=== PATIENT | female | born 1995 | race Caucasian/White ===

== ENCOUNTER 2022-09-08 16:45 | Emergency (ER) | payer MEDICAID, SELFPAY ==
[2022-09-08 17:03] VITALS: BP 108/88; PULSE 94; RESP 16; TEMP 36.4; O2SAT 98; BMI 26.5
--- NOTE | 2022-09-08 17:21 | ED_ITS ---
HPI - Nausea/Vomiting/Diarrhea General Chief complaint: Nausea/Vomiting Stated complaint: Vomiting Time Seen by Provider: 09/08/22 16:46 History of Present Illness HPI Narrative: [age] year old young woman sent to the emergency department from urgent care for IV fluids and electrolyte analysis. She has been vomiting now almost 24 hours. Uncertain exposure. Is vaccinated but due for latest booster with COVID; has not received her influenza vaccine. She has not had a fever but did feel chilled yesterday. Emesis. No actual pain I note she does have a history of take Suboxone. She did manage yesterday's dose but is not yet managed today; it is now 5:20 p.m.. She would anticipate more withdrawals within a couple hours. No rashes. Corpus with vomiting since 8:00 a.m.. Feels a little lightheaded at times when goes to stand. Does have experience with Zofran ODT when and notes that actually causes nausea now just given the smell. Further alarming apparently to Urgent Care was decreased urine output. She does not have dysuria. Related Data Home Medications Medication Instructions Recorded Confirmed buprenorphine 8 mg-naloxone 2 mg 1 film sublingual BID 09/08/22 09/08/22 sublingual film (Suboxone) gabapentin 300 mg capsule 300 mg PO QDAY 09/08/22 09/08/22 propranolol 10 mg tablet 10 mg PO 09/08/22 09/08/22 venlafaxine 150 mg cap PO 09/08/22 09/08/22 capsule,extended release 24 hr Allergies Allergy/AdvReac Type Severity Reaction Status Date / Time bupropion [From Wellbutrin] Allergy Intermediate Hives Verified 09/08/22 17:08 morphine Allergy Intermediate Abdominal Verified 09/08/22 17:08 Pain Review of Systems Status of ROS: Reports: 6 or more systems reviewed and unremarkable except as noted in History and below PFSH PFSH Social History Smoking Status: Current every day smoker Do you use any of these nicotine containing products: Vaping Products Second hand tobacco smoke exposure: No How often do you have a drink containing alcohol: never AUDIT-C Alcohol total score: 0 Non-prescribed substance use: former substance user Non-prescribed substance use details: Former IV drug user, currently taking suboxone Exam Narrative: Exam Narrative: Pleasant. Looks uncomfortable. Calm. Large pala-type ear plugs. Oropharynx is a little sticky. Cranial nerves 2-12 are intact. Pupils there are 4 mm and reactive to light and accommodation, brisk. There is some scleral icterus. Mild rhinorrhea. Skin is warm dry without rash. Extremities without edema. Moving all extremities out difficulty. Breathing easily lungs are clear. Cardiovascular with elevated rate. Regular rhythm no murmur rub or gallop identified. Abdomen is soft and nontender. No peritoneal signs. Const: Vital Signs, click to edit/add: Vital Signs - 24 hr 09/08/22 17:03 09/08/22 17:32 Temperature 97.6 F Pulse Rate 83 Pulse Rate [Left P ulse Oximeter] 94 Respiratory Rate 16 Blood Pressure [Ri ght Upper Arm] 108/88 Pulse Oximetry 98 97 Oxygen Delivery Me thod Room Air Documenting provider has reviewed patient's vital signs: yes Course Course Hospital Course: I offered antiemetic trial as she has been tolerating some ice chips. Understandably she would like to proceed with IV fluids therefore will collect electrolytes as well. Reevaluation(s) Reevaluation #1: Overall markedly improved with fluids. Electrolytes are normal. She does believe she can urinate and so will be leaving a urine sample for urine tox scre en if needed. Anticipating departure shortly Time: 18:19 Vital Signs Vital signs: Initial Vital Signs Temperature 97.6 F 09/08/22 17:03 Temperature Source Temporal Artery Scan 09/08/22 17:03 Pulse Rate 94 09/08/22 17:03 Pulse Rhythm 09/08/22 17:03 Pulse Strength 3+ Normal 09/08/22 17:03 Respiratory Rate 16 09/08/22 17:03 Blood Pressure 108/88 09/08/22 17:03 Blood Pressure Mean 94 09/08/22 17:03 Blood Pressure Position Supine 09/08/22 17:03 Pulse Oximetry 98 09/08/22 17:03 Oxygen Delivery Method 09/08/22 17:03 Vital Signs Temperature 97.6 F 09/08/22 17:03 Pulse Rate 94 09/08/22 17:03 Respiratory Rate 16 09/08/22 17:03 Blood Pressure 108/88 09/08/22 17:03 Pulse Oximetry 98 09/08/22 17:03 Oxygen Delivery Method 09/08/22 17:03 Temperature 97.6 F 09/08/22 17:03 Pulse Rate 80 09/08/22 18:02 Respiratory Rate 16 09/08/22 17:03 Blood Pressure 101/71 09/08/22 18:01 Pulse Oximetry 100 09/08/22 18:02 Oxygen Delivery Method 09/08/22 17:03 MDM - Nausea/Vomiting/Diarrhea MDM Narrative Medical decision making narrative: May need to provide with Suboxone during time here. Medical Records Attestation: I reviewed the patient's medical records. Lab Data Attestation: I reviewed the patient's lab results. Labs: Lab Results 09/08/22 09/08/22 09/08/22 Range/Units 17:25 17:25 17:27 Sodium 139 (135-149) mmol/L Potassium 4.3 (3.6-5.1) mmol/L Chloride 100 (96-114) mmol/L Carbon Dioxide 32 (20-32) mmol/L BUN 19 (5-24) mg/dL Creatinine 0.8 (0.5-1.5) mg/dL Estimated Creat Clear 81.82 Estimated GFR 105 ml/min Glucose 92 (60-115) mg/dL Calcium 9.5 (8.4-10.6) mg/dL Urine Opiates Screen Negative (Negative) Ur Oxycodone Screen Negative (Negative) Urine Methadone Screen Negative (Negative) Ur Propoxyphene Screen Negative (Negative) Ur Barbiturates Screen Negative (Negative) U Tricyclic Antidepress Negative (Negative) Ur Phencyclidine Scrn Negative (Negative) Ur Amphetamines Screen Negative (Negative) U Methamphetamines Scrn Negative (Negative) U Benzodiazepines Scrn Negative (Negative) Urine Cocaine Screen Negative (Negative) U Marijuana (THC) Screen Negative (Negative) Ur Drug Screen Comment See Note SARS-CoV-2 (PCR) Negative SARS-CoV-2 (Negative) Influenza Type A (PCR) Negative PCR FLU A (Negative) Influenza Type B (PCR) Negative PCR FLU B (Negative) Discharge Plan Discharge Clinical Impression: Vomiting, Dehydration Patient Disposition: Home, Self-Care Condition: Improved Additional Instructions: Continue to focus on hydration. Slow advance of diet over the next 36 hours. Diluted juices and soup broths to thicker soups and smoothies. Rice. [place]. If the Zofran is not palatable to you, you can call and we can send in a different prescription for you Return for intractable vomiting, increasing abdominal pain, associated fever. In addition to COVID and influenza being negative, your chemistries were normal. Prescriptions: No Action gabapentin 300 mg capsule 300 mg PO QDAY venlafaxine 150 mg capsule,extended release 24hr PO buprenorphine-naloxone [Suboxone] 8-2 mg film 1 film sublingual BID Label Comments: PLACE 1 FILM UNDER THE TONGUE TWICE DAILY propranolol 10 mg tablet 10 mg PO Follow Up/Referrals: Chirag Mckenna MD [Primary Care Provider] - Stand Alone Forms: [employer] Info Instructions
[2022-09-08 17:32] VITALS: PULSE 83; O2SAT 97
[2022-09-08] MEDS: 0.9 % SODIUM CHLORIDE 1000 ml 1,000 ML IV (17:33)
[2022-09-08] MEDS: ONDANSETRON 2 MG/ML inj 4 MG IVP (17:33)
[2022-09-08 17:42] LABS: Chloride* 100 mmol/L (96-114); Potassium* 4.3 mmol/L (3.6-5.1); Sodium* 139 mmol/L (135-149)
[2022-09-08 17:45] VITALS: PULSE 81; O2SAT 100
[2022-09-08 17:45] LABS: Blood Urea Nitrogen* 19 mg/dL (5-24); Calcium* 9.5 mg/dL (8.4-10.6); Carbon Dioxide* 32 mmol/L (20-32); Creatinine* 0.8 mg/dL (0.5-1.5); Est. Creatinine Clearance* 81.82; Estimated Glomerular Filt Rate 105 ml/min; Glucose* 92 mg/dL (60-115)
[2022-09-08 18:00] VITALS: PULSE 81; O2SAT 100
[2022-09-08 18:01] VITALS: BP 101/71; PULSE 79; O2SAT 100
[2022-09-08 18:02] VITALS: PULSE 80; O2SAT 100
[2022-09-08 18:20] LABS: PCR FLU A Negative PCR FLU A (Negative); PCR FLU B Negative PCR FLU B (Negative)
[2022-09-08 18:21] LABS: SARS PCR* Negative SARS-CoV-2 (Negative)
[2022-09-08 18:36] LABS: Amphetamine Screen Urine Negative (Negative); Barbiturate Screen Urine Negative (Negative); Benzodiazepines Screen Urine Negative (Negative); Cannabinoid Screen Urine Negative (Negative); Cocaine Screen Urine Negative (Negative); Methadone Screen Urine Negative (Negative); Methamphetamines Screen Urine Negative (Negative); Opiate Screen Urine Negative (Negative); Oxycodone Screen Urine Negative (Negative); Phencyclidine Screen Urine Negative (Negative); Tricyclic Antidepressant Urine Negative (Negative)
== END 2022-09-08 18:28 | disposition home or self-care (01) ==
PROVIDERS: Emergency Provider Family Medicine; PCP Family Medicine
DX: R11.10 Vomiting, unspecified (principal); E86.0 Dehydration
CPT/HCPCS: 36415; 80048; 80306; 87631; 96361; 96374; 99284; J2405; J7030

== ENCOUNTER 2022-12-07 01:46 | Outpatient (CLI) | payer MEDICAID, SELFPAY | END 2022-12-07 01:47 | disposition home or self-care (01) | PROVIDERS: PCP Family Medicine; Visit Provider Family Medicine | DX: T50.904A Poisoning by unspecified drugs, medicaments and biological substances, undetermined, initial encounter (principal); R40.4 Transient alteration of awareness; Y92.009 Unspecified place in unspecified non-institutional (private) residence as the place of occurrence of the external cause | CPT/HCPCS: A0425; A0427 ==

== ENCOUNTER 2022-12-07 02:19 | Inpatient (IN) | payer MEDICAID, SELFPAY ==
[2022-12-07] VITALS (86 sets, daily range): BP systolic 96–134; BP diastolic 63–105; PULSE 98–137; RESP 11–37; TEMP 36.7–37.8; O2SAT 88–100; BMI 26.6; BMI 23.4
--- NOTE | 2022-12-07 02:00 | XR_ITS ---
Patient: SANKET GARCIA Facility:?[facility] Patient ID:?[id number] Site Patient ID:?[id number] Site :?1995 Study:?XRay-Chest ap portable-12/07/2022 3:10:50 AM Ordering Physician:XAVIER Final Report: INDICATION: Aspiration TECHNIQUE: Chest radiograph 1 view COMPARISON: 10/12/2013 FINDINGS: Mediastinum: The mediastinum is normal in appearance. The heart silhouette is normal in size and morphology. Lung: Small lung volumes are present with an indistinct appearance of the perihilar vessels. No sign of pleural effusion seen. No pneumothorax is identified. Bone and Soft tissue: Unremarkable for age. IMPRESSION: 1. Small lung volumes are present with an indistinct appearance of the perihilar vessels. Findings can be due to perihilar atelectasis, edema, or aspiration pneumonitis. Dictated by Alfred Webb MD @ 12/07/2022 3:25:40 AM Dictated by: Alfred Webb MD @ 12/07/2022 03:25:47 Signed by:?Alfred Webb MD @12/07/2022 3:25:47 AM (Electronic Signature)
[2022-12-07] MEDS: 0.9 % SODIUM CHLORIDE 1000 ml 1,000 ML IV ×2 (02:20→14:43)
[2022-12-07] MEDS: ONDANSETRON 2 MG/ML inj 4 MG IVP (02:40)
[2022-12-07 04:08] LABS: Amphetamine Screen Urine POSITIVE (Negative); Methamphetamines Screen Urine POSITIVE (Negative)
[2022-12-07 04:09] LABS: Benzodiazepines Screen Urine Negative (Negative); Cannabinoid Screen Urine Negative (Negative); Cocaine Screen Urine Negative (Negative); Methadone Screen Urine Negative (Negative); Opiate Screen Urine Negative (Negative); Phencyclidine Screen Urine Negative (Negative); Tricyclic Antidepressant Urine Negative (Negative)
[2022-12-07 04:10] LABS: Barbiturate Screen Urine Negative (Negative); Color Urine Yellow (Yellow); Oxycodone Screen Urine Negative (Negative); Ur HCG Qualitative* Negative (Negative)
[2022-12-07 04:11] LABS: Appearance Urine Cloudy (Clear); Bilirubin Urine Negative (Negative); Blood Urine 2+ (Negative); Glucose Urine Trace (Negative); Ketones Urine Negative (Negative); Protein Urine 2+ (Negative); Specific Gravity Urine >= 1.030 (1.000-1.030); pH Urine 5.5 (5.0-8.5)
[2022-12-07 04:12] LABS: Bacteria Urine Few; Leukocyte Esterase Urine Negative (Negative); Nitrite Urine Negative (Negative); RBC Urine 0-2 (0-2); Squamous Epithelial Cell Urine Moderate (None-Few); Urobilinogen Urine 0.2 (0.2-1.0)
[2022-12-07 04:13] LABS: Fine Granular Casts Urine Moderate; Hematocrit 36.4 % (33.0-51.0); Hemoglobin* 12.9 gm/dL (12.0-16.0); Mean Corpuscular HGB Conc 35 gm/dL (32-36); Mean Corpuscular Hemoglobin 31 pg (26-34); Mean Corpuscular Volume 88 fL (80-100); Neutrophils Percent Auto 51.5 % (42.0-72.0); Platelet Count* 197 K/uL (140-440); Red Blood Count 4.15 m/uL (4.00-5.20)
[2022-12-07 04:14] LABS: Basophils Percent Auto 0.2 % (0.0-3.0); Monocytes Percent Auto 4.3 % (0.0-11.0)
[2022-12-07 04:15] LABS: INR 1.02 (0.91-1.10); Partial Thromboplastin Time* 27 Seconds (23-33); Slide Review Reflex No
[2022-12-07 04:16] LABS: Alanine Aminotransferase* 22 U/L (4-35); Albumin* 3.7 g/dL (3.3-5.0); Alkaline Phosphatase* 53 U/L (40-150); Aspartate Amino Transferase* 30 U/L (12-35); Bilirubin Direct* 0.2 mg/dL (0.0-0.5); Bilirubin Total* 0.5 mg/dL (0.1-1.5); Troponin I* < 0.01 ng/mL (0.01-0.04)
[2022-12-07 04:17] LABS: Acetaminophen* < 10.0 ug/mL (10.0-30.0); Ethanol* < 0.01 % (0.01-0.03); Salicylate* < 1.0 mg/dL (1.0-10)
--- NOTE | 2022-12-07 04:19 | ED_ITS ---
HPI - Overdose General Chief Complaint: Overdose Stated Complaint: Overdose Time Seen by Provider: 12/07/22 03:47 Source: patient and EMS Mode of arrival: EMS Limitations: no limitations History of Present Illness HPI Narrative: Patient is a 27-year-old female who presents here with an overdose of narcotics, she was staying at the hotel, a person she was with, called 911, as she was not breathing, CPR was administered cover the by the time EMS got there, they gave her some intranasal Narcan, and she came around, she is complaining of some chest discomfort from the CPR, admits to taking some perc 30s unknown amount, she smoked these, as a history of previous overdoses x3, previous treatment x2, and looking to get back in to treatment, as she relapsed a week and half ago she tells me. 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 CPS is involved with her child, who is taking care of by her father. She currently is nauseous, and vomiting. complaint: accidental overdose Timing confirmed by: other Intent: unknown How Overdose Was Discovered: family/friend present at time Context: Intentional Overdose: drug/ETOH problems Context: Accidental Overdose: wanted to get high Treatments Prior to Arrival: oxygen, narcan and IV fluids Related Data Home Medications Medication Instructions Recorded Confirmed buprenorphine 8 mg-naloxone 2 mg 1 film sublingual BID 09/08/22 09/08/22 sublingual film (Suboxone) gabapentin 300 mg capsule 300 mg PO QDAY 09/08/22 09/08/22 propranolol 10 mg tablet 10 mg PO 09/08/22 09/08/22 venlafaxine 150 mg cap PO 09/08/22 09/08/22 capsule,extended release 24 hr Allergies Allergy/AdvReac Type Severity Reaction Status Date / Time bupropion [From Wellbutrin] Allergy Intermediate Hives Verified 09/08/22 17:08 morphine Allergy Intermediate Abdominal Verified 09/08/22 17:08 Pain Review of Systems Status of ROS: Reports: 10 or more systems reviewed and unremarkable except as noted in History and below PFSH PFS Social History Smoking Status: Current every day smoker Do you use any of these nicotine containing products: Vaping Products Second hand tobacco smoke exposure: No How often do you have a drink containing alcohol: never AUDIT-C Alcohol total score: 0 Non-prescribed substance use: opiods/painkillers Non-prescribed substance use details: Update 12/07/22: pt relapsed, taking Perc 30s Former IV drug user, currently taking suboxone Exam Narrative: Exam Narrative: Patient is seen as our red Medical, and stabilization room 1, Handoff given to myself by EMS, Patient is speaking normally, no problem with slurring words, oriented x3. Head eyes ears nose and throat exam show equal pupils, no scleral icterus, extraocular muscles are normal, no facial droop, speech is normal, trachea normal and midline. Thyroid normal midline palpable not enlarged. Chest shows symmetrical rise bilaterally, normal auscultation with no wheezes, no increased work of breathing, no overt bruising or lesions seen, no tenderness is noted on auscultation. Heart sounds normal with no S3-S4 no murmurs clicks or gallops. Abdomen shows no obvious masses or hepatosplenomegaly, no organomegaly, bowel sounds are normal in all quadrants. No tenderness is noted also in all quadrants. Upper and lower extremities show normal power, normal range of motion, pulses are normal, sensations normal, fine motor movements are normal, pelvis is stable to rocking. Cervical spine shows normal range of motion, and palpably not tender. Thoracic spine shows normal range of motion, and palpably not tender, lumbar spine shows no tenderness to palpation percussion and is otherwise normal range of motion. Skin shows no rashes, petechiae or eccymosis. She is examined with my nurse is present. Const: Vital Signs, click to edit/add: Vital Signs - 24 hr 12/07/22 03:58 12/07/22 02:19 12/07/22 02:19 Temperature 98.0 F Pulse Rate Pulse Rate [Right Pulse Oximeter] 108 H Respiratory Rate 20 Blood Pressure Blood Pressure [Ri ght Upper Arm] 108/75 Pulse Oximetry 95 88 88 Oxygen Delivery Me thod Nasal Cannula Nasal Cannula Nasal Cannula Oxygen Flow Rate 2 2 12/07/22 02:19 12/07/22 04:27 12/07/22 04:30 Temperature Pulse Rate 109 H 106 H Pulse Rate [Right Pulse Oximeter] Respiratory Rate Blood Pressure Blood Pressure [Ri ght Upper Arm] Pulse Oximetry 99 95 94 Oxygen Delivery Me thod Nasal Cannula Oxygen Flow Rate 2 12/07/22 04:31 12/07/22 04:35 12/07/22 02:27 Temperature Pulse Rate 106 H 105 H Pulse Rate [Right Pulse Oximeter] 108 H Respiratory Rate 22 Blood Pressure 119/93 H Blood Pressure [Ri ght Upper Arm] Pulse Oximetry 97 98 99 Oxygen Delivery Me thod Room Air Oxygen Flow Rate 12/07/22 02:29 12/07/22 02:45 12/07/22 02:35 Temperature Pulse Rate Pulse Rate [Right Pulse Oximeter] 108 H 105 H 120 H Respiratory Rate 14 12 19 Blood Pressure Blood Pressure [Ri ght Upper Arm] 107/85 120/86 134/87 Pulse Oximetry 99 97 96 Oxygen Delivery Me thod Nasal Cannula Nasal Cannula Nasal Cannula Oxygen Flow Rate 2 2 2 12/07/22 02:40 12/07/22 03:00 12/07/22 03:05 Temperature Pulse Rate Pulse Rate [Right Pulse Oximeter] 107 H 102 H 101 H Respiratory Rate 11 L 12 14 Blood Pressure Blood Pressure [Ri ght Upper Arm] 128/92 H 123/89 115/83 Pulse Oximetry 96 93 97 Oxygen Delivery Me thod Nasal Cannula Nasal Cannula Nasal Cannula Oxygen Flow Rate 2 2 2 12/07/22 03:10 12/07/22 03:15 12/07/22 03:20 Temperature Pulse Rate Pulse Rate [Right Pulse Oximeter] 102 H 101 H 101 H Respiratory Rate 17 Blood Pressure Blood Pressure [Ri ght Upper Arm] 125/90 H 118/88 124/91 H Pulse Oximetry 96 96 95 Oxygen Delivery Me thod Nasal Cannula Nasal Cannula Nasal Cannula Oxygen Flow Rate 2 2 2 12/07/22 03:25 12/07/22 03:30 12/07/22 03:35 Temperature Pulse Rate Pulse Rate [Right Pulse Oximeter] 103 H 104 H 98 Respiratory Rate 17 11 L 11 L Blood Pressure Blood Pressure [Ri ght Upper Arm] 120/102 H 125/105 H 130/98 H Pulse Oximetry 91 89 97 Oxygen Delivery Me thod Nasal Cannula Nasal Cannula Nasal Cannula Oxygen Flow Rate 2 2 2 12/07/22 03:40 12/07/22 03:45 12/07/22 03:50 Temperature Pulse Rate Pulse Rate [Right Pulse Oximeter] 101 H 98 100 Respiratory Rate 16 11 L 18 Blood Pressure Blood Pressure [Ri ght Upper Arm] 120/96 H 129/94 H 116/92 H Pulse Oximetry 98 99 98 Oxygen Delivery Me thod Room Air Nasal Cannula Oxygen Flow Rate 2 2 12/07/22 03:55 12/07/22 04:00 12/07/22 04:05 Temperature Pulse Rate Pulse Rate [Right Pulse Oximeter] 102 H 98 100 Respiratory Rate 18 16 16 Blood Pressure Blood Pressure [Ri ght Upper Arm] 121/88 122/94 H 123/90 H Pulse Oximetry 95 97 95 Oxygen Delivery Me thod Nasal Cannula Nasal Cannula Nasal Cannula Oxygen Flow Rate 2 2 2 12/07/22 04:10 12/07/22 04:15 12/07/22 04:20 Temperature Pulse Rate Pulse Rate [Right Pulse Oximeter] 104 H 103 H 101 H Respiratory Rate 24 16 21 Blood Pressure Blood Pressure [Ri ght Upper Arm] 122/90 H 130/91 H 125/86 Pulse Oximetry 94 96 98 Oxygen Delivery Me thod Nasal Cannula Nasal Cannula Nasal Cannula Oxygen Flow Rate 2 2 2 12/07/22 04:25 12/07/22 05:01 12/07/22 05:31 Temperature Pulse Rate 103 H 112 H Pulse Rate [Right Pulse Oximeter] 101 H Respiratory Rate 18 18 Blood Pressure 127/93 H 110/86 Blood Pressure [Ri ght Upper Arm] Pulse Oximetry 97 99 99 Oxygen Delivery Me thod Nasal Cannula Oxygen Flow Rate 2 12/07/22 05:40 12/07/22 06:02 12/07/22 04:04 Temperature 98.2 F Pulse Rate 114 H 112 H Pulse Rate [Right Pulse Oximeter] Respiratory Rate 18 Blood Pressure 123/77 Blood Pressure [Ri ght Upper Arm] Pulse Oximetry 100 95 90 Oxygen Delivery Me thod Room Air Oxygen Flow Rate 12/07/22 06:20 12/07/22 06:25 12/07/22 06:30 Temperature Pulse Rate 129 H 130 H 137 H Pulse Rate [Right Pulse Oximeter] Respiratory Rate Blood Pressure Blood Pressure [Ri ght Upper Arm] Pulse Oximetry 94 95 95 Oxygen Delivery Me thod Oxygen Flow Rate 12/07/22 06:32 12/07/22 06:35 12/07/22 06:40 Temperature Pulse Rate 135 H 127 H 137 H Pulse Rate [Right Pulse Oximeter] Respiratory Rate Blood Pressure 119/103 H Blood Pressure [Ri ght Upper Arm] Pulse Oximetry 94 98 94 Oxygen Delivery Me thod Oxygen Flow Rate 12/07/22 06:45 12/07/22 06:50 12/07/22 06:55 Temperature Pulse Rate 130 H 128 H 129 H Pulse Rate [Right Pulse Oximeter] Respiratory Rate Blood Pressure Blood Pressure [Ri ght Upper Arm] Pulse Oximetry 92 94 95 Oxygen Delivery Me thod Oxygen Flow Rate 12/07/22 07:00 12/07/22 07:01 12/07/22 07:05 Temperature Pulse Rate 132 H 130 H 136 H Pulse Rate [Right Pulse Oximeter] Respiratory Rate Blood Pressure 127/85 Blood Pressure [Ri ght Upper Arm] Pulse Oximetry 94 92 91 Oxygen Delivery Me thod Room Air Room Air Room Air Oxygen Flow Rate 12/07/22 07:10 12/07/22 07:15 12/07/22 07:38 Temperature Pulse Rate 135 H 134 H Pulse Rate [Right Pulse Oximeter] Respiratory Rate Blood Pressure Blood Pressure [Ri ght Upper Arm] Pulse Oximetry 90 91 92 Oxygen Delivery Me thod Room Air Room Air Room Air Oxygen Flow Rate 12/07/22 07:40 12/07/22 07:45 12/07/22 07:50 Temperature Pulse Rate 127 H 124 H 122 H Pulse Rate [Right Pulse Oximeter] Respiratory Rate Blood Pressure Blood Pressure [Ri ght Upper Arm] Pulse Oximetry 93 96 98 Oxygen Delivery Me thod Room Air Nasal Cannula Nasal Cannula Oxygen Flow Rate 1 1 12/07/22 07:55 12/07/22 08:00 12/07/22 08:01 Temperature Pulse Rate 122 H 123 H 123 H Pulse Rate [Right Pulse Oximeter] Respiratory Rate Blood Pressure 123/73 Blood Pressure [Ri ght Upper Arm] Pulse Oximetry 97 97 98 Oxygen Delivery Me thod Nasal Cannula Nasal Cannula Nasal Cannula Oxygen Flow Rate 1 1 1 12/07/22 08:05 Temperature Pulse Rate 124 H Pulse Rate [Right Pulse Oximeter] Respiratory Rate Blood Pressure Blood Pressure [Ri ght Upper Arm] Pulse Oximetry 98 Oxygen Delivery Me thod Nasal Cannula Oxygen Flow Rate 1 Documenting provider has reviewed patient's vital signs: yes Course Course Hospital Course: Police were present, she was not charged with anything as far as I know. We will letter currently sleep, she is currently on a sat monitor with heart monitoring also. We did give her IV fluids and Zofran, her nausea and vomiting as abated. Reevaluation(s) Reevaluation #1: Patient is tachycardia to 130 but sleeping, suspect this is due to her withdrawal from the fentanyl, she is otherwise asymptomatic, will go ahead and give her 25 mg of Benadryl, and 0.5 mg of Ativan. She will need a prescription for naloxone before she leaves. We will go ahead and recheck her Tylenol, troponin, she did have CPR. Time: 06:44 Reevaluation #2: Patient remained hypoxic room he stop the oxygen, she drifted down to the 87 86% range, came back up to 93 94% with 2 L of oxygen I repeated her at least lateral x-ray which confirmed my suspicion that she has aspirated, I think she will need to come into the hospital, for further oxygen and supportive treatment, I do not routinely start antibiotics for aspiration pneumonia now. Acetaminophen level and troponin level were normal on the redraw. I have discussed the case with the hospitalist Dr. Rao he will admit her to the hospital for further care. Time: 08:08 Vital Signs Vital signs: Initial Vital Signs Pulse Oximetry 88 12/07/22 02:19 Oxygen Delivery Method 12/07/22 02:19 Oxygen Flow Rate 2 12/07/22 02:19 Vital Signs Pulse Oximetry 88 12/07/22 02:19 Oxygen Delivery Method 12/07/22 02:19 Oxygen Flow Rate 2 12/07/22 02:19 Temperature 98.2 F 12/07/22 06:02 Pulse Rate 124 H 12/07/22 08:05 Respiratory Rate 18 12/07/22 06:02 Blood Pressure 123/73 12/07/22 08:01 Pulse Oximetry 98 12/07/22 08:05 Oxygen Delivery Method 12/07/22 08:05 Oxygen Flow Rate 1 12/07/22 08:05 MDM - Overdose MDM Narrative Medical decision making narrative: Multiple differential diagnoses were considered for altered mental status. The life-threatening differential diagnosis considered include: Meningitis/encephalitis, bacteremia, subdural, cerebrovascular accident, SAH, and hypertensive encephalopathy. Other differential diagnosis included include medication effect, hypoxia, hypoglycemia, hypercalcemia, hypo or hypernatremia, hypothyroidism, hepatic encephalopathy, carbon monoxide poisoning, UTI, pneumonia, depression, seizure, as well as other etiologies. Differential Diagnosis Differential diagnosis: Likely cocaine intoxication, suicide attempt by multiple drug overdose, poisoning by opiate or related narcotic, drug overdose, acetaminophen overdose and accidental drug ingestion Medical Records Attestation: I reviewed the patient's medical records. Lab Data Attestation: I reviewed the patient's lab results. Lab results narrative: She tells me that she usually does methamphetamine, and this is a little bit of her norm the narcotic, she found some leftover narcotics in her purse. Labs: Lab Results 12/07/22 12/07/22 12/07/22 Range/Units 01:00 01:00 01:00 WBC 5.10 (4.50-11.00) K/uL RBC 4.15 (4.00-5.20) m/uL Hgb 12.9 (12.0-16.0) gm/dL Hct 36.4 (33.0-51.0) % MCV 88 (80-100) fL MCH 31 (26-34) pg MCHC 35 (32-36) gm/dL Plt Count 197 (140-440) K/uL Neut % (Auto) 51.5 (42.0-72.0) % Lymph % (Auto) 41.0 (20-44) % [place] % (Auto) 4.3 (0.0-11.0) % Eos % (Auto) 2.0 (0.0-7.0) % Baso % (Auto) 0.2 (0.0-3.0) % Neut # (Auto) 2.60 (1.7-7.0) K/uL Lymph # (Auto) 2.10 (0.90-2.90) K/uL [place] # (Auto) 0.20 (0.00-0.90) K/UL Eos # (Auto) 0.10 (0.00-0.50) K/uL Baso # (Auto) 0.00 (0.00-0.30) K/uL INR 1.02 (0.91-1.10) APTT 27 (23-33) Seconds Total Bilirubin (0.1-1.5) mg/dL Direct Bilirubin (0.0-0.5) mg/dL AST (12-35) U/L ALT (4-35) U/L Alkaline Phosphatase (40-150) U/L Troponin I (0.01-0.04) ng/mL Total Protein (6.0-8.3) g/dL Albumin (3.3-5.0) g/dL Urine Color Yellow (Yellow) Urine Appearance Cloudy A (Clear) Urine pH 5.5 (5.0-8.5) Ur Specific [place] >= 1.030 (1.000-1.030) Urine Protein 2+ A (Negative) Urine Glucose (UA) Trace A (Negative) Urine Ketones Negative (Negative) Urine Blood 2+ A (Negative) Urine Nitrite Negative (Negative) Urine Bilirubin Negative (Negative) Urine Urobilinogen 0.2 (0.2-1.0) Ur Leukocyte Esterase Negative (Negative) Urine RBC 0-2 (0-2) Urine WBC 5-10 A (0-5) Ur Squamous Epith Cells Moderate A (None-Few) Urine Bacteria Few A (None) Fine Granular Casts Moderate A (None) Urine HCG, Qual Negative (Negative) Salicylates (1.0-10) mg/dL Urine Opiates Screen (Negative) Ur Oxycodone Screen (Negative) Urine Methadone Screen (Negative) Ur Propoxyphene Screen (Negative) Acetaminophen (10.0-30.0) ug/mL Ur Barbiturates Screen (Negative) U Tricyclic Antidepress (Negative) Ur Phencyclidine Scrn (Negative) Ur Amphetamines Screen (Negative) U Methamphetamines Scrn (Negative) U Benzodiazepines Scrn (Negative) Urine Cocaine Screen (Negative) U Marijuana (THC) Screen (Negative) Ur Drug Screen Comment Ethyl Alcohol (0.01-0.03) % 12/07/22 12/07/22 12/07/22 Range/Units 01:00 01:00 06:28 WBC (4.50-11.00) K/uL RBC (4.00-5.20) m/uL Hgb (12.0-16.0) gm/dL Hct (33.0-51.0) % MCV (80-100) fL MCH (26-34) pg MCHC (32-36) gm/dL Plt Count (140-440) K/uL Neut % (Auto) (42.0-72.0) % Lymph % (Auto) (20-44) % [place] % (Auto) (0.0-11.0) % Eos % (Auto) (0.0-7.0) % Baso % (Auto) (0.0-3.0) % Neut # (Auto) (1.7-7.0) K/uL Lymph # (Auto) (0.90-2.90) K/uL [place] # (Auto) (0.00-0.90) K/UL Eos # (Auto) (0.00-0.50) K/uL Baso # (Auto) (0.00-0.30) K/uL INR (0.91-1.10) APTT (23-33) Seconds Total Bilirubin 0.5 (0.1-1.5) mg/dL Direct Bilirubin 0.2 (0.0-0.5) mg/dL AST 30 (12-35) U/L ALT 22 (4-35) U/L Alkaline Phosphatase 53 (40-150) U/L Troponin I < 0.01 L 0.02 (0.01-0.04) ng/mL Total Protein 6.0 (6.0-8.3) g/dL Albumin 3.7 (3.3-5.0) g/dL Urine Color (Yellow) Urine Appearance (Clear) Urine pH (5.0-8.5) Ur Specific [place] (1.000-1.030) Urine Protein (Negative) Urine Glucose (UA) (Negative) Urine Ketones (Negative) Urine Blood (Negative) Urine Nitrite (Negative) Urine Bilirubin (Negative) Urine Urobilinogen (0.2-1.0) Ur Leukocyte Esterase (Negative) Urine RBC (0-2) Urine WBC (0-5) Ur Squamous Epith Cells (None-Few) Urine Bacteria (None) Fine Granular Casts (None) Urine HCG, Qual (Negative) Salicylates < 1.0 L (1.0-10) mg/dL Urine Opiates Screen Negative (Negative) Ur Oxycodone Screen Negative (Negative) Urine Methadone Screen Negative (Negative) Ur Propoxyphene Screen Negative (Negative) Acetaminophen < 10.0 L < 10.0 L (10.0-30.0) ug/mL Ur Barbiturates Screen Negative (Negative) U Tricyclic Antidepress Negative (Negative) Ur Phencyclidine Scrn Negative (Negative) Ur Amphetamines Screen POSITIVE A* (Negative) U Methamphetamines Scrn POSITIVE A* (Negative) U Benzodiazepines Scrn Negative (Negative) Urine Cocaine Screen Negative (Negative) U Marijuana (THC) Screen Negative (Negative) Ur Drug Screen Comment See Note Ethyl Alcohol < 0.01 L (0.01-0.03) % Imaging Data Chest x-ray: Attestation: I have reviewed the pertinent imaging results. My impression: No acute findings Radiologist's impression: Patient: SANKET GARCIA Facility: [facility] Site _[id number] Site : 1995 Study: XRay Chest ap portable-12/07/2022 3:10:50 AM Ordering Physician: KATHY Final Report: INDICATION: Aspiration TECHNIQUE: Chest radiograph 1 view COMPARISON: 10/12/2013 FINDINGS: Mediastinum: The mediastinum is normal in appearance. The heart silhouette is normal in size and morphology. Lung: Small lung volumes are present with an indistinct appearance of the perihilar vessels. No sign of pleural effusion seen. No pneumothorax is identified. Bone and Soft tissue: Unremarkable for age. IMPRESSION: 1. Small lung volumes are present with an indistinct appearance of the perihilar vessels. Findings can be due to perihilar atelectasis, edema, or aspiration pneumonitis. Dictated by Alfred Webb MD @ 12/07/2022 3:25:40 AM Dictated by: Alfred Webb MD @ 12/07/2022 03:25:47 (Electronic Signature) ECG Data ECG interpretation date: 12/07/22 Interpretation: EKG shows mild sinus tachycardia 106 normal QRS QT and IN interval Discharge Plan Discharge Clinical Impression: Drug overdose, Aspiration pneumonia, Hypoxia Patient Disposition: Admitted As Inpatient Condition: Stable
--- NOTE | 2022-12-07 07:00 | ED.NURSE ---
Supplemental O2 DC'd by . Will continue to monitor O2 sats on room air.
--- NOTE | 2022-12-07 07:06 | CRLHL7_ITS ---
For Patients: As a result of the Cures Act, medical imaging exams and procedure reports are released immediately into your electronic medical record. You may view this report before your referring provider. If you have questions, please contact your health care provider. INDICATION: Chest pain. TECHNIQUE: Chest 2 views. COMPARISON: No recent available comparison FINDINGS: Cardiovascular and mediastinum: Heart size and vasculature are normal in caliber and appearance. Lungs and pleural spaces: Perihilar opacities which suspicious for viral infection or reactive airway process. Probable right basilar airspace opacity may indicate superimposed pneumonia or aspiration. No sign of pleural effusion. No pneumothorax. Bones and soft tissues: No significant findings. IMPRESSION: Perihilar opacities which suspicious for viral infection or reactive airway process. Probable right basilar airspace opacity may indicate superimposed pneumonia or aspiration. Dictated by Dwight Baum MD @ 12/07/2022 7:51:35 AM (Electronically Signed)
[2022-12-07 07:24] LABS: Acetaminophen* < 10.0 ug/mL (10.0-30.0)
[2022-12-07 07:45] LABS: Troponin I* 0.02 ng/mL (0.01-0.04)
--- NOTE | 2022-12-07 07:46 | ED.NURSE ---
O2 sats on RA consistently ~90%. Supplemental O2 restarted at 1L NC at MD direction.
[2022-12-07] MEDS: LORazepam 2 MG/ML inj 0.5 MG IVP (07:56)
[2022-12-07] MEDS: diphenhydrAMINE 50 MG/ML inj 25 MG IVP ×2 (08:03→23:59)
--- NOTE | 2022-12-07 08:05 | W.PC.EDHO ---
Primary Language: Kinyarwanda Preferred Language: Orientation Status: [] Alert & Oriented [x] Slight Confusion [] Known Dx Dementia Transfers By: [x] Assist of 1 [] Assist of 2 [] Lift Active Medications Discontinued Medications Generic Name Dose Route Start Last Admin Trade Name Mila PRN Reason Stop Dose Admin Diphenhydramine HCl 25 mg 12/07/22 07:40 12/07/22 08:03 Diphenhydramine 50 Mg/Ml Inj IVP 12/07/22 07:41 25 mg ONCE ONE Administration Sodium Chloride 1,000 mls @ 1,000 mls/hr 12/07/22 04:30 12/07/22 04:00 0.9 % Sodium Chloride 1000 Ml IV 12/07/22 05:29 Infused .Q1H CARMELO Infusion Lorazepam 0.5 mg 12/07/22 07:40 12/07/22 07:56 Lorazepam 2 Mg/Ml Inj IVP 12/07/22 07:41 0.5 mg ONCE ONE Administration Ondansetron HCl 4 mg 12/07/22 04:26 12/07/22 02:40 Ondansetron 2 Mg/Ml Inj IVP 12/07/22 04:27 4 mg ONCE ONE Administration Description of Symptoms ED Triage Present Problem CC: Overdose Description pt. smoked unknown amount of perc 30, probably a narcotic. when ems arrived, pt. was apneic, not breathing on her own around 0200. ems gave 2mg IN narcan. after 2 minutes, pt. was able to breathe on her own. ems noticed vomit around her mouth. was placed on 15l NR o2. on arrival, pt. gcs 15, 15l NR o2. pt. talking. ems started 18gauge iv left arm. no injury noted. ems stated that person that was with her did CPR but is unverified . pt. doesn't remember how many pills she crushed up and smoked. ED Triage Date of Onset of 12/07/22 Symptoms Female History Patient No [place] Coma Scale Precious coma scale total score 15 Pain Pain Description [Chest] Acute Pain Description [Chest] Burning Pain Intensity [Chest] 3 Pain Intensity [Chest] 3 Pain Intensity 3 Pain Intensity 3 Pain Intensity 3 Pain Scale Used [Chest] Numeric (1 - 10) Pain Scale Used [Chest] Numeric (1 - 10) Pain Scale Used Numeric (1 - 10) Pain Scale Used Numeric (1 - 10) Pain Scale Used Numeric (1 - 10) Pain Site Observation [Chest] WNL IV Insertion/Site Date of IV Line Insertion [ 12/07/22 Left Antecubital] Oxygen Administration Pulse Oximetry 96 Pulse Oximetry 93 Pulse Oximetry 92 Pulse Oximetry 91 Pulse Oximetry 90 Pulse Oximetry 91 Pulse Oximetry 92 Pulse Oximetry 94 Pulse Oximetry 95 Pulse Oximetry 94 Pulse Oximetry 92 Pulse Oximetry 94 Pulse Oximetry 98 Pulse Oximetry 94 Pulse Oximetry 95 Pulse Oximetry 95 Pulse Oximetry 94 Pulse Oximetry 95 Pulse Oximetry 100 Pulse Oximetry 99 Pulse Oximetry 99 Pulse Oximetry 98 Pulse Oximetry 97 Pulse Oximetry 94 Pulse Oximetry 95 Pulse Oximetry 97 Pulse Oximetry 98 Pulse Oximetry 96 Pulse Oximetry 94 Pulse Oximetry 95 Pulse Oximetry 90 Pulse Oximetry 97 Pulse Oximetry 95 Pulse Oximetry 95 Pulse Oximetry 98 Pulse Oximetry 99 Pulse Oximetry 98 Pulse Oximetry 97 Pulse Oximetry 89 Pulse Oximetry 91 Pulse Oximetry 95 Pulse Oximetry 96 Pulse Oximetry 96 Pulse Oximetry 97 Pulse Oximetry 93 Pulse Oximetry 97 Pulse Oximetry 96 Pulse Oximetry 96 Pulse Oximetry 99 Pulse Oximetry 99 Pulse Oximetry 99 Pulse Oximetry 88 Pulse Oximetry 88 Oxygen Delivery Method Nasal Cannula Oxygen Delivery Method Room Air Oxygen Delivery Method Room Air Oxygen Delivery Method Room Air Oxygen Delivery Method Room Air Oxygen Delivery Method Room Air Oxygen Delivery Method Room Air Oxygen Delivery Method Room Air Oxygen Delivery Method Nasal Cannula Oxygen Delivery Method Nasal Cannula Oxygen Delivery Method Nasal Cannula Oxygen Delivery Method Nasal Cannula Oxygen Delivery Method Nasal Cannula Oxygen Delivery Method Nasal Cannula Oxygen Delivery Method Room Air Oxygen Delivery Method Nasal Cannula Oxygen Delivery Method Nasal Cannula Oxygen Delivery Method Nasal Cannula Oxygen Delivery Method Nasal Cannula Oxygen Delivery Method Room Air Oxygen Delivery Method Nasal Cannula Oxygen Delivery Method Nasal Cannula Oxygen Delivery Method Nasal Cannula Oxygen Delivery Method Nasal Cannula Oxygen Delivery Method Nasal Cannula Oxygen Delivery Method Nasal Cannula Oxygen Delivery Method Nasal Cannula Oxygen Delivery Method Nasal Cannula Oxygen Delivery Method Nasal Cannula Oxygen Delivery Method Nasal Cannula Oxygen Delivery Method Nasal Cannula Oxygen Delivery Method Nasal Cannula Oxygen Delivery Method Room Air Oxygen Delivery Method Nasal Cannula Oxygen Delivery Method Nasal Cannula Oxygen Flow Rate 1 Oxygen Flow Rate 2 Oxygen Flow Rate 2 Oxygen Flow Rate 2 Oxygen Flow Rate 2 Oxygen Flow Rate 2 Oxygen Flow Rate 2 Oxygen Flow Rate 2 Oxygen Flow Rate 2 Oxygen Flow Rate 2 Oxygen Flow Rate 2 Oxygen Flow Rate 2 Oxygen Flow Rate 2 Oxygen Flow Rate 2 Oxygen Flow Rate 2 Oxygen Flow Rate 2 Oxygen Flow Rate 2 Oxygen Flow Rate 2 Oxygen Flow Rate 2 Oxygen Flow Rate 2 Oxygen Flow Rate 2 Oxygen Flow Rate 2 Oxygen Flow Rate 2 Oxygen Flow Rate 2 Oxygen Flow Rate 2 Cardiac Monitoring EKG Method 12 Lead EKG Method 12 Lead
[2022-12-07 08:29] LABS: PCR FLU A Negative PCR FLU A (Negative); PCR FLU B Negative PCR FLU B (Negative); PCR RSV Negative PCR RSV (Negative)
[2022-12-07 08:30] LABS: SARS PCR* Negative SARS-CoV-2 (Negative)
[2022-12-07] MEDS: BUPRENORPHINE-NALOX 8-2MG FILM 1 EACH SUBLINGUAL ×2 (10:12→20:30)
[2022-12-07] MEDS: SODIUM CHLORIDE 0.9 % (FLUSH) 10 ML SYRINGE 5 ML IVF ×3 (10:15→23:59)
[2022-12-07 10:39] LABS: HCO3 VBG 24 mmol/L (21-28); Lactate* 0.8 mmol/L (0.5-1.9); PCO2 VBG 41 mmHG (40-50); pH VBG 7.375 (7.32-7.43)
[2022-12-07] MEDS: LACTATED RINGERS 1000 ML 1,000 ML 500 ML IV (11:59)
--- NOTE | 2022-12-07 12:31 | ONC.NURNOTE ---
arrived CCU 1;1 RN care from the ER via cart at 0900. sleepy but easily awaken and cooporative. unable to move herself to the bed from the cart. vs 99.6-110/70-117-20. resp reg but shallow. sats sats 89 ra. placed on 2 L NC. sats 96. cont ETCO2 set up 39-42. placed on her side with hob elevated. ls dimished. no cr. heard. poss bs. heart reg s1s2. tele NSR. suction set up at bedside if needed. able to swallow sips of water. able to ask for a drink. teds/ comp. hose placed on pt. see ER md note. note 911 called to hotel by someone in her room. she had vomited. and poss asp. CPR given . pts OD on something. drug screen in ER poss for meth and amphetamines. Pt received 1L in ER. Ativan 0.5iv and Benadryl 25mg IV for elevated heart rate to 130 per ED RN. 1200 LR 1000cc over 2 hr hung. note lab at 10am with Lactate level drawn in ER of 0.8. md aware. 1000 note parents here and supportive. pt states ok to give info but groggy. father Lee [phone]/ mother Emelina [phone]. parents . Mother recovering alcoholic. f ather states Brianna has tried treatment in the past and has had one suicidal attempt. father states he has custody of pts son Omari, almost 3. states pt is working with [employer] for Rule 25. trying to get treatment for drug abuse. Pt not aloud to see her son without the county present. Note left for social service. note pt did not bring her cell phone in with her. father aware. 1200 ERCO2 not picking up on monitor. monitoring pt closely at her bedside. good color. resp 16. sats 94 1L nc. Charge nurse aware.
--- NOTE | 2022-12-07 14:16 | PC.NURSE ---
Patient just finished 1L LR. Pt bladder scanned for 1cc. abd soft nondistended. pt states voided this am in ER. per Paddy COOK LARDER pt did void in the comode around 8am. he did not empty it so unsure the amt. pt more awake at times, answers questions clearly. falls asleep trying to eat a yougort. hob elevated 90 degrees. ETCO2 45 . resp 15.
--- NOTE | 2022-12-07 14:45 | PM.IMHP1 ---
Hospitalist- H&P: HPI History of Present Illness Time Seen by Provider: 07:30 Date Seen: 12/07/22 Chief complaint: Overdose Narrative: Elisabeth Groves is a 27 year old woman with known methamphetamine dependence and history of opioid abuse. She was normal till room with a friend. Reportedly she was on 1 week binge use of opioids. She was reportedly snorting Percocet tabs. According to her friend that was with her the patient stop breathing. The friend summoned EMS and started CPR. Patient received CPR for roughly 1-3 minutes. EMS promptly arrived. EMS administered Narcan. Patient awakened and vomited and likely aspirated. They transported her to emergency department. In our emergency department the patient had another vomiting episode. On room air patient oxygen saturation was 88-90%. With oxygen at 1 liter/minute via nasal cannula she is saturating in the mid 90s. Chest x-ray AP and lateral view obtained demonstrating infiltrate consistent with aspiration pneumonitis. Normal white blood cell count. No fever. Urine drug screen positive for methamphetamine and opioids. Patient treated with lorazepam and diphenhydramine for ongoing withdrawal. Patient admitted to the hospital for observation for oxygen support. Review of Systems Narrative: Unable to get a lot of direct history from the patient. Her friend that was with her in the motel room never came to the emergency department. Patient acknowledged some chest discomfort likely from the CPR efforts. Denies dyspnea. States nausea is improved. Denies any recent trauma or injury. Denies any recent travel. No recent fevers, rigors, diaphoresis. Denies dysuria, urgency, frequency, hematuria. Denies diarrhea. Some information obtained from the nursing staff who obtained information from the patient's father indicate that the patient is homeless at this time. Reportedly the father has custody of her son. Patient lost custody of her son in the past. Patient's mother struggles with maintaining sobriety, with underlying alcoholism. 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 Patient is trying to obtain help from the [facility] to return to a treatment program for her chemical dependency. [facility] Medical History Anxiety disorder History of attempted suicide History of panic disorder Major depressive disorder Methamphetamine dependence, episodic Migraine headache with aura (normal spontaneous vaginal delivery) Opioid abuse Recurrent subluxation of patella, right knee Surgical History History of wisdom tooth extraction Status post tonsillectomy and adenoidectomy Social History Highest level of school completed/degree received: high school graduate Smoking Status: Current every day smoker Do you use any of these nicotine containing products: Vaping Products Second hand tobacco smoke exposure: No How often do you have a drink containing alcohol: never AUDIT-C Alcohol total score: 0 Non-prescribed substance use: opiods/painkillers Non-prescribed substance use details: Update 12/07/22: pt relapsed, taking Perc 30s Former IV drug user, currently taking suboxone Meds Home Medications and Allergies Home Medications Medication Instructions Recorded Confirmed Type buprenorphine 8 mg-naloxone 2 mg 1 film sublingual BID 09/08/22 12/07/22 History sublingual film (Suboxone) gabapentin 300 mg capsule 300 mg PO DAILY 09/08/22 12/07/22 History propranolol 10 mg tablet 10 mg PO DAILY 09/08/22 12/07/22 History venlafaxine 150 mg 150 mg PO DAILY 09/08/22 12/07/22 History capsule,extended release 24 hr Allergies Allergy/AdvReac Type Severity Reaction Status Date / Time bupropion [From Wellbutrin] Allergy Intermediate Hives Verified 09/08/22 17:08 morphine Allergy Intermediate Abdominal Verified 09/08/22 17:08 Pain Exam Narrative: Exam Narrative: Laying on exam table in the emergency department with head of bed elevated about 45?. Somnolent. Arousable to call of her name. Falls asleep readily during conversation but is then easily arousable again. When awake she is oriented to self, somewhat to place and time and situation. Notes that she is thirsty and asks for some ice chips to sip on. Hearing is preserved. Vision is grossly normal. No conjunctival injection or icterus. Tympanic membranes are normal. Dry buccal mucosa with dentition in fair repair. Midline trachea. Neck is supple. No JVD, hepatojugular reflux, or carotid bruits. Lungs fairly clear to auscultation although she has bibasilar end inspiratory rales. Heart tones with regular rhythm, tachycardic. No murmur, gallop, or rub. Abdomen with active bowel sounds, soft, nontender. Extremities without edema. Palpable pulses upper and lower extremities. Able to follow some simple 1 step commands. No focal motor neurologic deficits. Intermittent, episodic jerking movements of lower extremities and upper extremities. Skin is warm, dry, intact. Const: Vital Signs, click to edit/add: Vital Signs - 24 hr 12/07/22 03:58 12/07/22 02:19 12/07/22 02:19 Temperature 98.0 F Pulse Rate Pulse Rate [Brachi al] Pulse Rate [Right Pulse Oximeter] 108 H Respiratory Rate 20 Blood Pressure Blood Pressure [Le ft Arm] Blood Pressure [Ri ght Upper Arm] 108/75 Pulse Oximetry 95 88 88 Oxygen Delivery Me thod Nasal Cannula Nasal Cannula Nasal Cannula Oxygen Flow Rate 2 2 Fraction of Inspir ed Oxygen 12/07/22 02:19 12/07/22 04:27 12/07/22 04:30 Temperature Pulse Rate 109 H 106 H Pulse Rate [Brachi al] Pulse Rate [Right Pulse Oximeter] Respiratory Rate Blood Pressure Blood Pressure [Le ft Arm] Blood Pressure [Ri ght Upper Arm] Pulse Oximetry 99 95 94 Oxygen Delivery Me thod Nasal Cannula Oxygen Flow Rate 2 Fraction of Inspir ed Oxygen 12/07/22 04:31 12/07/22 04:35 12/07/22 02:27 Temperature Pulse Rate 106 H 105 H Pulse Rate [Brachi al] Pulse Rate [Right Pulse Oximeter] 108 H Respiratory Rate 22 Blood Pressure 119/93 H Blood Pressure [Le ft Arm] Blood Pressure [Ri ght Upper Arm] Pulse Oximetry 97 98 99 Oxygen Delivery Me thod Room Air Oxygen Flow Rate Fraction of Inspir ed Oxygen 12/07/22 02:29 12/07/22 02:45 12/07/22 02:35 Temperature Pulse Rate Pulse Rate [Brachi al] Pulse Rate [Right Pulse Oximeter] 108 H 105 H 120 H Respiratory Rate 14 12 19 Blood Pressure Blood Pressure [Le ft Arm] Blood Pressure [Ri ght Upper Arm] 107/85 120/86 134/87 Pulse Oximetry 99 97 96 Oxygen Delivery Me thod Nasal Cannula Nasal Cannula Nasal Cannula Oxygen Flow Rate 2 2 2 Fraction of Inspir ed Oxygen 12/07/22 02:40 12/07/22 03:00 12/07/22 03:05 Temperature Pulse Rate Pulse Rate [Brachi al] Pulse Rate [Right Pulse Oximeter] 107 H 102 H 101 H Respiratory Rate 11 L 12 14 Blood Pressure Blood Pressure [Le ft Arm] Blood Pressure [Ri ght Upper Arm] 128/92 H 123/89 115/83 Pulse Oximetry 96 93 97 Oxygen Delivery Me thod Nasal Cannula Nasal Cannula Nasal Cannula Oxygen Flow Rate 2 2 2 Fraction of Inspir ed Oxygen 12/07/22 03:10 12/07/22 03:15 12/07/22 03:20 Temperature Pulse Rate Pulse Rate [Brachi al] Pulse Rate [Right Pulse Oximeter] 102 H 101 H 101 H Respiratory Rate 17 Blood Pressure Blood Pressure [Le ft Arm] Blood Pressure [Ri ght Upper Arm] 125/90 H 118/88 124/91 H Pulse Oximetry 96 96 95 Oxygen Delivery Me thod Nasal Cannula Nasal Cannula Nasal Cannula Oxygen Flow Rate 2 2 2 Fraction of Inspir ed Oxygen 12/07/22 03:25 12/07/22 03:30 12/07/22 03:35 Temperature Pulse Rate Pulse Rate [Brachi al] Pulse Rate [Right Pulse Oximeter] 103 H 104 H 98 Respiratory Rate 17 11 L 11 L Blood Pressure Blood Pressure [Le ft Arm] Blood Pressure [Ri ght Upper Arm] 120/102 H 125/105 H 130/98 H Pulse Oximetry 91 89 97 Oxygen Delivery Me thod Nasal Cannula Nasal Cannula Nasal Cannula Oxygen Flow Rate 2 2 2 Fraction of Inspir ed Oxygen 12/07/22 03:40 12/07/22 03:45 12/07/22 03:50 Temperature Pulse Rate Pulse Rate [Brachi al] Pulse Rate [Right Pulse Oximeter] 101 H 98 100 Respiratory Rate 16 11 L 18 Blood Pressure Blood Pressure [Le ft Arm] Blood Pressure [Ri ght Upper Arm] 120/96 H 129/94 H 116/92 H Pulse Oximetry 98 99 98 Oxygen Delivery Me thod Room Air Nasal Cannula Oxygen Flow Rate 2 2 Fraction of Inspir ed Oxygen 12/07/22 03:55 12/07/22 04:00 12/07/22 04:05 Temperature Pulse Rate Pulse Rate [Brachi al] Pulse Rate [Right Pulse Oximeter] 102 H 98 100 Respiratory Rate 18 16 16 Blood Pressure Blood Pressure [Le ft Arm] Blood Pressure [Ri ght Upper Arm] 121/88 122/94 H 123/90 H Pulse Oximetry 95 97 95 Oxygen Delivery Me thod Nasal Cannula Nasal Cannula Nasal Cannula Oxygen Flow Rate 2 2 2 Fraction of Inspir ed Oxygen 12/07/22 04:10 12/07/22 04:15 12/07/22 04:20 Temperature Pulse Rate Pulse Rate [Brachi al] Pulse Rate [Right Pulse Oximeter] 104 H 103 H 101 H Respiratory Rate 24 16 21 Blood Pressure Blood Pressure [Le ft Arm] Blood Pressure [Ri ght Upper Arm] 122/90 H 130/91 H 125/86 Pulse Oximetry 94 96 98 Oxygen Delivery Me thod Nasal Cannula Nasal Cannula Nasal Cannula Oxygen Flow Rate 2 2 2 Fraction of Inspir ed Oxygen 12/07/22 04:25 12/07/22 05:01 12/07/22 05:31 Temperature Pulse Rate 103 H 112 H Pulse Rate [Brachi al] Pulse Rate [Right Pulse Oximeter] 101 H Respiratory Rate 18 18 Blood Pressure 127/93 H 110/86 Blood Pressure [Le ft Arm] Blood Pressure [Ri ght Upper Arm] Pulse Oximetry 97 99 99 Oxygen Delivery Me thod Nasal Cannula Oxygen Flow Rate 2 Fraction of Inspir ed Oxygen 12/07/22 05:40 12/07/22 06:02 12/07/22 04:04 Temperature 98.2 F Pulse Rate 114 H 112 H Pulse Rate [Brachi al] Pulse Rate [Right Pulse Oximeter] Respiratory Rate 18 Blood Pressure 123/77 Blood Pressure [Le ft Arm] Blood Pressure [Ri ght Upper Arm] Pulse Oximetry 100 95 90 Oxygen Delivery Me thod Room Air Oxygen Flow Rate Fraction of Inspir ed Oxygen 12/07/22 06:20 12/07/22 06:25 12/07/22 06:30 Temperature Pulse Rate 129 H 130 H 137 H Pulse Rate [Brachi al] Pulse Rate [Right Pulse Oximeter] Respiratory Rate Blood Pressure Blood Pressure [Le ft Arm] Blood Pressure [Ri ght Upper Arm] Pulse Oximetry 94 95 95 Oxygen Delivery Me thod Oxygen Flow Rate Fraction of Inspir ed Oxygen 12/07/22 06:32 12/07/22 06:35 12/07/22 06:40 Temperature Pulse Rate 135 H 127 H 137 H Pulse Rate [Brachi al] Pulse Rate [Right Pulse Oximeter] Respiratory Rate Blood Pressure 119/103 H Blood Pressure [Le ft Arm] Blood Pressure [Ri ght Upper Arm] Pulse Oximetry 94 98 94 Oxygen Delivery Me thod Oxygen Flow Rate Fraction of Inspir ed Oxygen 12/07/22 06:45 12/07/22 06:50 12/07/22 06:55 Temperature Pulse Rate 130 H 128 H 129 H Pulse Rate [Brachi al] Pulse Rate [Right Pulse Oximeter] Respiratory Rate Blood Pressure Blood Pressure [Le ft Arm] Blood Pressure [Ri ght Upper Arm] Pulse Oximetry 92 94 95 Oxygen Delivery Me thod Oxygen Flow Rate Fraction of Inspir ed Oxygen 12/07/22 07:00 12/07/22 07:01 12/07/22 07:05 Temperature Pulse Rate 132 H 130 H 136 H Pulse Rate [Brachi al] Pulse Rate [Right Pulse Oximeter] Respiratory Rate Blood Pressure 127/85 Blood Pressure [Le ft Arm] Blood Pressure [Ri ght Upper Arm] Pulse Oximetry 94 92 91 Oxygen Delivery Me thod Room Air Room Air Room Air Oxygen Flow Rate Fraction of Inspir ed Oxygen 12/07/22 07:10 12/07/22 07:15 12/07/22 07:38 Temperature Pulse Rate 135 H 134 H Pulse Rate [Brachi al] Pulse Rate [Right Pulse Oximeter] Respiratory Rate Blood Pressure Blood Pressure [Le ft Arm] Blood Pressure [Ri ght Upper Arm] Pulse Oximetry 90 91 92 Oxygen Delivery Me thod Room Air Room Air Room Air Oxygen Flow Rate Fraction of Inspir ed Oxygen 12/07/22 07:40 12/07/22 07:45 12/07/22 07:50 Temperature Pulse Rate 127 H 124 H 122 H Pulse Rate [Brachi al] Pulse Rate [Right Pulse Oximeter] Respiratory Rate Blood Pressure Blood Pressure [Le ft Arm] Blood Pressure [Ri ght Upper Arm] Pulse Oximetry 93 96 98 Oxygen Delivery Me thod Room Air Nasal Cannula Nasal Cannula Oxygen Flow Rate 1 1 Fraction of Inspir ed Oxygen 12/07/22 07:55 12/07/22 08:00 12/07/22 08:01 Temperature Pulse Rate 122 H 123 H 123 H Pulse Rate [Brachi al] Pulse Rate [Right Pulse Oximeter] Respiratory Rate Blood Pressure 123/73 Blood Pressure [Le ft Arm] Blood Pressure [Ri ght Upper Arm] Pulse Oximetry 97 97 98 Oxygen Delivery Me thod Nasal Cannula Nasal Cannula Nasal Cannula Oxygen Flow Rate 1 1 1 Fraction of Inspir ed Oxygen 12/07/22 08:05 12/07/22 05:00 12/07/22 05:30 Temperature Pulse Rate 124 H Pulse Rate [Brachi al] Pulse Rate [Right Pulse Oximeter] Respiratory Rate 17 18 Blood Pressure Blood Pressure [Le ft Arm] Blood Pressure [Ri ght Upper Arm] Pulse Oximetry 98 Oxygen Delivery Me thod Nasal Cannula Oxygen Flow Rate 1 Fraction of Inspir ed Oxygen 12/07/22 06:30 12/07/22 07:00 12/07/22 06:00 Temperature Pulse Rate Pulse Rate [Brachi al] Pulse Rate [Right Pulse Oximeter] Respiratory Rate 16 22 37 H Blood Pressure Blood Pressure [Le ft Arm] Blood Pressure [Ri ght Upper Arm] Pulse Oximetry Oxygen Delivery Me thod Oxygen Flow Rate Fraction of Inspir ed Oxygen 12/07/22 08:00 12/07/22 08:10 12/07/22 08:15 Temperature Pulse Rate 124 H 124 H Pulse Rate [Brachi al] Pulse Rate [Right Pulse Oximeter] Respiratory Rate 17 Blood Pressure Blood Pressure [Le ft Arm] Blood Pressure [Ri ght Upper Arm] Pulse Oximetry 98 98 Oxygen Delivery Me thod Nasal Cannula Nasal Cannula Oxygen Flow Rate 1 1 Fraction of Inspir ed Oxygen 12/07/22 08:20 12/07/22 08:25 12/07/22 08:30 Temperature Pulse Rate 124 H 125 H 123 H Pulse Rate [Brachi al] Pulse Rate [Right Pulse Oximeter] Respiratory Rate Blood Pressure Blood Pressure [Le ft Arm] Blood Pressure [Ri ght Upper Arm] Pulse Oximetry 98 98 97 Oxygen Delivery Me thod Nasal Cannula Nasal Cannula Nasal Cannula Oxygen Flow Rate 1 1 1 Fraction of Inspir ed Oxygen 12/07/22 08:31 12/07/22 08:35 12/07/22 08:40 Temperature Pulse Rate 128 H 122 H 120 H Pulse Rate [Brachi al] Pulse Rate [Right Pulse Oximeter] Respiratory Rate Blood Pressure 122/73 Blood Pressure [Le ft Arm] Blood Pressure [Ri ght Upper Arm] Pulse Oximetry 97 97 99 Oxygen Delivery Me thod Nasal Cannula Nasal Cannula Nasal Cannula Oxygen Flow Rate 1 1 1 Fraction of Inspir ed Oxygen 12/07/22 09:00 12/07/22 09:00 12/07/22 09:26 Temperature 99.6 F Pulse Rate Pulse Rate [Brachi al] 117 H Pulse Rate [Right Pulse Oximeter] Respiratory Rate 20 17 Blood Pressure Blood Pressure [Le ft Arm] 110/70 Blood Pressure [Ri ght Upper Arm] Pulse Oximetry 89 89 96 Oxygen Delivery Me thod Room Air Room Air Oxygen Flow Rate Fraction of Inspir ed Oxygen 12/07/22 09:26 12/07/22 09:30 12/07/22 10:00 Temperature Pulse Rate 116 H Pulse Rate [Brachi al] 116 H 114 H Pulse Rate [Right Pulse Oximeter] Respiratory Rate 18 21 Blood Pressure Blood Pressure [Le ft Arm] 107/71 Blood Pressure [Ri ght Upper Arm] Pulse Oximetry 96 96 Oxygen Delivery Me thod Nasal Cannula Nasal Cannula Oxygen Flow Rate 2 2 Fraction of Inspir ed Oxygen 12/07/22 10:30 12/07/22 11:00 12/07/22 11:30 Temperature 99.1 F Pulse Rate Pulse Rate [Brachi al] 118 H 118 H Pulse Rate [Right Pulse Oximeter] Respiratory Rate 17 16 16 Blood Pressure Blood Pressure [Le ft Arm] 106/63 106/66 101/70 Blood Pressure [Ri ght Upper Arm] Pulse Oximetry 95 94 94 Oxygen Delivery Me thod Nasal Cannula Nasal Cannula Nasal Cannula Oxygen Flow Rate 2 1 1 Fraction of Inspir ed Oxygen 12/07/22 12:00 12/07/22 12:30 12/07/22 13:00 Temperature Pulse Rate Pulse Rate [Brachi al] 113 H 113 H 112 H Pulse Rate [Right Pulse Oximeter] Respiratory Rate 16 20 16 Blood Pressure Blood Pressure [Le ft Arm] 103/73 96/72 98/70 Blood Pressure [Ri ght Upper Arm] Pulse Oximetry 96 93 95 Oxygen Delivery Me thod Nasal Cannula Nasal Cannula Nasal Cannula Oxygen Flow Rate 1 1 Fraction of Inspir ed Oxygen 1 12/07/22 12:30 12/07/22 13:00 12/07/22 13:30 Temperature Pulse Rate Pulse Rate [Brachi al] 112 H 113 H Pulse Rate [Right Pulse Oximeter] Respiratory Rate 16 16 18 Blood Pressure Blood Pressure [Le ft Arm] 96/72 98/70 104/73 Blood Pressure [Ri ght Upper Arm] Pulse Oximetry 93 94 96 Oxygen Delivery Me thod Nasal Cannula Nasal Cannula Nasal Cannula Oxygen Flow Rate 1 1 1 Fraction of Inspir ed Oxygen 12/07/22 14:04 12/07/22 14:44 Temperature Pulse Rate 115 H Pulse Rate [Brachi al] 111 H Pulse Rate [Right Pulse Oximeter] Respiratory Rate 17 Blood Pressure Blood Pressure [Le ft Arm] 104/83 Blood Pressure [Ri ght Upper Arm] Pulse Oximetry 94 Oxygen Delivery Me thod Nasal Cannula Oxygen Flow Rate 1 Fraction of Inspir ed Oxygen Hospitalist - H&P: Result Labs Labs: Short CBC 12/07/22 Range/Units 01:00 WBC 5.10 (4.50-11.00) K/uL Hgb 12.9 (12.0-16.0) gm/dL Hct 36.4 (33.0-51.0) % Plt Count 197 (140-440) K/uL Cardiac Enzymes 12/07/22 12/07/22 Range/Units 01:00 06:28 Troponin I < 0.01 L 0.02 (0.01-0.04) ng/mL Liver Function 12/07/22 Range/Units 01:00 Total Bilirubin 0.5 (0.1-1.5) mg/dL Direct Bilirubin 0.2 (0.0-0.5) mg/dL AST 30 (12-35) U/L ALT 22 (4-35) U/L Alkaline Phosphatase 53 (40-150) U/L Albumin 3.7 (3.3-5.0) g/dL Urine 12/07/22 Range/Units 01:00 Urine Color Yellow (Yellow) Urine Appearance Cloudy A (Clear) Urine pH 5.5 (5.0-8.5) Ur Specific [place] >= 1.030 (1.000-1.030) Urine Protein 2+ A (Negative) Urine Glucose (UA) Trace A (Negative) Imaging Chest x-ray: Attestation: I have reviewed the pertinent imaging results. Radiologist's impression: IMPRESSION: Perihilar opacities which suspicious for viral infection or reactive airway process. Probable right basilar airspace opacity may indicate superimposed pneumonia or aspiration. Assessment and Plan Assessment and plan (1) Drug overdose: Status: Acute (2) Aspiration pneumonia: Status: Acute (3) Hypoxia: Status: Acute (4) Methamphetamine dependence, episodic: Status: Acute (5) Opioid abuse: Status: Acute (6) Dehydration syndrome: Status: Acute Plan 1. Reviewed impression with patient. 2. Recommended admission to the hospital for observation with continued oxygen administration. Will hold off on initiation of any antibiotics at this juncture given the paucity of findings to support the need for this at this time. Monitor respirations and saturations and intermittent venous blood gases. 3. Reinitiate her Suboxone and venlafaxine. 4. Truck Crane Operator Helper consult. 5. Physical therapy occupational therapy consult. 6. Consider appropriate discharge disposition plan as patient continues to arouse more. 7. IV fluids. Monitor lactate. Monitor heart rate. 8. Patient agreeable to above stated plans and recommendations.
[2022-12-07 15:56] LABS: Lactate* 1.2 mmol/L (0.5-1.9)
[2022-12-07] MEDS: LACTATED RINGERS 1000 ML 1,000 ML 125 ML IV (16:27)
[2022-12-07] MEDS: NICOTINE 14 mg PATCH 1 PATCH TRANSDERMA (17:13)
--- NOTE | 2022-12-07 19:00 | PC.NURSE ---
End of shift note [id number]: Pt. arousable to name, oriented to self, place and situation. Pt. experiences intermittent episodic jerking movements. Pt. tolerating clear liquid diet. Pt. denies N, SOB. C/O chest hurting when she coughs. no bruising on chest noted. R-20, 96% on 1 L NC. ECG shows Sinus Tach w/first degree HB. Pt. up to the BR with GB/Walker and SBA. Pt. voided in toilet. Pt. IV patent, running LR @125 mls/hr. Nicotine patch applied to pt's right shoulder.
[2022-12-07] MEDS: PROPRANOLOL 20 MG TABLET 10 MG PO (20:30)
[2022-12-07] MEDS: GABAPENTIN 300 MG CAPSULE PO (20:30)
[2022-12-08] VITALS (8 sets, daily range): BP systolic 100–120; BP diastolic 63–90; PULSE 77–110; RESP 16–23; TEMP 36.9–37.9; O2SAT 92–97
--- NOTE | 2022-12-08 05:45 | PC.NURSE ---
[id number] [address] cooperative with cares, asleep majority of shift, wakes up easily to name and/or slight shaking but falls asleep easily mid conversation. Pt ambulated to BR x2 SBA, tolerates activity fair. O2 upon return from br at 85% on RA, recovers within 10 seconds once NC is back on. O2 at 0.5-1LPM during shift, currently at 0.5 LPM with O2 sats at 93%. Pt with sinus tachycardia entire shift. She states she is slightly lightheaded with ambulation. approx [id number] nurse noticed pt bilateral upper extremities swollen and red, patient face also puffy. md updated, IV fluids stopped and prn benadryl ordered. Pt hands still slightly swollen, face still slightly puffy but redness has resolved, no rash observed. Pt denied itching and states this happens sometimes. Pt with intermittent cough, thick yellow phlegm noted. ETCO2 for entire shift ranges 32-49, RR 18-28, and pulse 100-117. Tolerating clears, no N/V. when asked she acknowledges feeling SOB and having a slight headache. LS clear but diminished at the bases, encouraged patient to deep breath, but patient coughs which causes chest pain so she is reluctant to take deep breaths.
[2022-12-08 05:55] LABS: HCO3 VBG 25 mmol/L (21-28); Lactate* 0.9 mmol/L (0.5-1.9); PCO2 VBG 39 mmHG (40-50); PO2 VBG 38.1 mmHG (25-47); pH VBG 7.409 (7.32-7.43)
[2022-12-08 06:00] LABS: Hemoglobin* 13.2 gm/dL (12.0-16.0); Mean Corpuscular HGB Conc 35 gm/dL (32-36); Mean Corpuscular Hemoglobin 31 pg (26-34); Mean Corpuscular Volume 90 fL (80-100); Platelet Count* 206 K/uL (140-440); Red Blood Count 4.23 m/uL (4.00-5.20); White Blood Count* 18.72 K/uL (4.50-11.00)
[2022-12-08 06:01] LABS: Slide Review Reflex No
[2022-12-08 06:12] LABS: Chloride* 108 mmol/L (96-114); Potassium* 3.9 mmol/L (3.6-5.1); Sodium* 136 mmol/L (135-149)
[2022-12-08 06:15] LABS: Blood Urea Nitrogen* 6 mg/dL (5-24); Carbon Dioxide* 25 mmol/L (20-32); Creatinine* 0.7 mg/dL (0.5-1.5); Est. Creatinine Clearance* 97.17; Estimated Glomerular Filt Rate 123 ml/min
[2022-12-08 06:16] LABS: Calcium* 8.2 mg/dL (8.4-10.6); D Dimer Quantitative* < 0.27 ug/ml (0.00-0.50); Glucose* 92 mg/dL (60-115); Magnesium* 1.8 mg/dL (1.5-2.6); Phosphorus* 2.5 mg/dL (2.5-4.5)
[2022-12-08 06:30] LABS: C Reactive Protein* 17.3 mg/dL (0.5-1.0); NT Pro B Type NatriureticPept* 892 pg/mL
--- NOTE | 2022-12-08 07:18 | PC.NURSE ---
Just took over care of patient. Patient is currently sleeping laying on her back does awaken to name called for a brief moment and then falls back to sleep.
--- NOTE | 2022-12-08 07:46 | PC.NURSE ---
Patient sat up for a brief moment and then repositioned herself onto her right side and then requested to order breakfast.
[2022-12-08] MEDS: PROPRANOLOL 20 MG TABLET 10 MG PO ×2 (08:18→21:09)
[2022-12-08] MEDS: BUPRENORPHINE-NALOX 8-2MG FILM 1 EACH SUBLINGUAL ×2 (08:18→21:09)
[2022-12-08] MEDS: SODIUM CHLORIDE 0.9 % (FLUSH) 10 ML SYRINGE 5 ML IVF ×2 (08:19→21:10)
--- NOTE | 2022-12-08 08:33 | PC.NURSE ---
MD in to see patient. She is talking with him. Did answer the questions patient had. will continue to monitor.
--- NOTE | 2022-12-08 08:47 | PC.NURSE ---
trying patient off of the nc as she was complaining it was bothering her nose. Will monitor oxygen level as she sleeps so far maintains at 92% on room air
--- NOTE | 2022-12-08 09:10 | PC.NURSE ---
trialed on room air while she was sleeping but did note that she dropped to 88% with a good wave form. place oxygen on at 1 liter and she is now 95% unsure if when she is sleeping if she is taking very deep breaths in and out will continue to monitor.
--- NOTE | 2022-12-08 09:22 | PC.NURSE ---
RT in to see patient
--- NOTE | 2022-12-08 10:22 | PC.NURSE ---
patient continue to sleep on her back. When she stirs a little have been gettin her to use her aerobik to help open up her lungs. Complains of not being able to get in a deep breath. Sats on room air as she is sleeping is 88-90%. When she is awake sats are 96-97% on room air
--- NOTE | 2022-12-08 11:16 | PC.SOCIAL ---
Addendum entered by LINDY Mccoy 12/08/22 14:00: Correct phone number for Jd Kohler is [phone]. Original Note: Met with pt. who is here after a drug overdose. Pt. states she has been working with Jd at the [facility] to get a Rule 25 for chemical dependency treatment. Pt. states the police took her phone and she has no way to contact him to set up the assessment. Pt. signed a release to talk to the [facility] and/or [facility] services to start the Rule 25 assessment. Left a message for Jd Kohler at [phone] who runs the Recovery Services at the [facility].
--- NOTE | 2022-12-08 11:45 | PC.NURSE ---
Pt is working with her aerobika and just ordered lunch will try to see if she will stay a little more awake this afternoon. Again explained to her the importance of cough and deep breathing to hopefully prevent pneumonia. Appears to understand as states I don't want that.
--- NOTE | 2022-12-08 12:18 | PC.NURSE ---
Patient is currently talking with possible her mother as she is wanting some personal items brought in for her to have.
--- NOTE | 2022-12-08 13:36 | PC.NURSE ---
End of Shift Note: Patient is currently sleeping on her back. Report given to Libby DAMON as she is now taking over care of patient.
--- NOTE | 2022-12-08 13:49 | CRLHL7_ITS ---
For Patients: As a result of the Century Cures Act, medical imaging exams and procedure reports are released immediately into your electronic medical record. You may view this report before your referring provider. If you have questions, please contact your health care provider. Indication: Fever, aspiration Technique: Chest 2 views Comparison: Chest x-ray 12/07/2022 Findings/Impression: Cardiovascular and mediastinum: Heart size and vasculature are normal in caliber and appearance. Mediastinum is within normal limits. Lungs and pleural spaces: No pleural effusion or pneumothorax. Bilateral bronchial wall thickening with some interstitial opacities in the right lung with more focal opacities in the left lung base. Compared to the prior examination, opacities in the left lung base have increased. Bones and soft tissues: No significant findings. Dictated by Brett Woods MD @ 12/08/2022 3:23:23 PM (Electronically Signed)
[2022-12-08] MEDS: GABAPENTIN 300 MG CAPSULE PO ×2 (14:02→21:08)
[2022-12-08] MEDS: cefTRIAXone 1 GM in 0.9 % SODIUM CHLORIDE Mini-bag 100 ML IVPB (14:14)
--- NOTE | 2022-12-08 14:32 | PM.IMPN1 ---
Progress Note: A&P Assessment and plan (1) Drug overdose: Problem details: No indication of suicidality. Status: Acute (2) Aspiration pneumonia: Problem details: Yesterday my thought was that she had a pneumonitis only. With her fever, elevated white count, and persistent need for oxygen supplementation, I am more convinced she has an actual aspiration pneumonia. Status: Acute (3) Hypoxia: Status: Acute (4) Methamphetamine dependence, episodic: Problem details: On Suboxone Status: Acute (5) Opioid abuse: Problem details: On Suboxone Status: Acute (6) Dehydration syndrome: Problem details: Received IV fluids Status: Acute Plan 1. Reviewed my impression with patient. 2. Answered her questions. 3. Work with social media marketer to establish a discharge disposition plan 4. Await radiologist's interpretation of today's chest x-ray 5. Blood culture x2 obtained 6. Initiate empiric antibiotic therapy with IV metronidazole 500 mg q.8 hours plus ceftriaxone 1 g IV Q 24 hours. 7. Continue work with respiratory therapy in regard to her oxygen supplementation and needs. 8. Increase activity as tolerated 9. Change to inpatient status. Time Spent With Patient Total time spent: 40 minutes Subjective Time Seen by Provider: 07:30 Date Seen: 12/08/22 Interval history: Hospital day 2. 27-year-old woman who overdosed on oxycodone yesterday. Reportedly had an episode of acute respiratory failure that required resuscitation, CPR initially and subsequently with Naloxone. Did awake after the Naloxone. Had nausea and vomiting as well. Is believed to have aspirated at that time. Subsequently placed on oxygen and transported to the emergency department for additional assessment and intervention. Had another vomiting episode in the [facility] Emergency Department, not believed to have aspirated at that time. Admitted to the hospital for further observation given her hypoxemia with room air oxygen saturations of 88-90% requiring low-flow oxygen supplementation to maintain oxygen saturations greater than 90%. Patient denies any suicidality. She acknowledges methamphetamine and opioid abuse and dependence. Is working with a [facility] to try to obtain additional treatment for her chemical dependency. Feels much improved today compared to yesterday. Still fatigued and tired. Tolerating eating and drinking. No further nausea or vomiting. Is currently on buprenorphine/naloxone and tolerating. T-max 100.4? F this afternoon. Still requiring oxygen supplementation to maintain oxygen saturations greater than 90%. Exam Narrative: Exam Narrative: Still mildly sleepy, but more awake and interactive today. Alert and oriented to self, place, time, and situation. Able to engage in meaningful dialogue and discussion. Mood and affect are congruent. Neck is supple. Midline trachea. No adenopathy in the pre or postauricular chains, anterior or posterior cervical chains, submental or submandibular fossa, supra clavicular fossa, or axilla bilaterally. Find end inspiratory rales bilaterally. No wheezing or rhonchi. Heart tones with regular rhythm, normal S1-S2. Abdomen with active bowel sounds, soft, nontender. Skin is warm, dry, intact. No rashes, petechiae, ecchymosis, or wounds. Independent transfer, station, and gait. Const: Vital Signs, click to edit/add: Vital Signs - 24 hr 12/07/22 14:44 12/07/22 15:00 12/07/22 19:00 Temperature 100.0 F H Pulse Rate 115 H Pulse Rate [Brachi al] 115 H Respiratory Rate 17 28 H Blood Pressure [Le ft Arm] 116/67 Blood Pressure [Ri ght Arm] Pulse Oximetry 96 Oxygen Delivery Me thod Nasal Cannula Oxygen Flow Rate 1 12/07/22 20:26 12/07/22 22:19 12/07/22 22:19 Temperature Pulse Rate Pulse Rate [Brachi al] 117 H 106 H Respiratory Rate 21 19 Blood Pressure [Le ft Arm] Blood Pressure [Ri ght Arm] Pulse Oximetry 90 93 Oxygen Delivery Me thod Room Air Oxygen Flow Rate 12/07/22 22:19 12/07/22 23:00 12/07/22 23:42 Temperature 100.1 F H 99.4 F Pulse Rate 107 H Pulse Rate [Brachi al] 107 H 103 H Respiratory Rate 20 23 Blood Pressure [Le ft Arm] 129/74 108/63 Blood Pressure [Ri ght Arm] Pulse Oximetry 94 95 Oxygen Delivery Me thod Nasal Cannula Nasal Cannula Oxygen Flow Rate 1 1 12/08/22 00:08 12/08/22 02:47 12/08/22 04:28 Temperature 100.3 F H Pulse Rate Pulse Rate [Brachi al] 105 H 101 H 104 H Respiratory Rate 23 20 19 Blood Pressure [Le ft Arm] 110/80 105/73 Blood Pressure [Ri ght Arm] Pulse Oximetry 94 95 94 Oxygen Delivery Me thod Nasal Cannula Nasal Cannula Nasal Cannula Oxygen Flow Rate 1 1 0.5 12/08/22 07:00 12/08/22 07:00 12/08/22 07:00 Temperature 98.5 F Pulse Rate Pulse Rate [Brachi al] 110 H Respiratory Rate 18 Blood Pressure [Le ft Arm] Blood Pressure [Ri ght Arm] 120/90 H Pulse Oximetry 94 94 97 Oxygen Delivery Me thod Nasal Cannula Nasal Cannula Oxygen Flow Rate 1 1 12/08/22 07:00 12/08/22 07:00 12/08/22 11:00 Temperature 100.3 F H Pulse Rate 107 H Pulse Rate [Brachi al] 101 H Respiratory Rate 18 16 Blood Pressure [Le ft Arm] Blood Pressure [Ri ght Arm] 114/73 Pulse Oximetry 94 Oxygen Delivery Me thod Nasal Cannula Oxygen Flow Rate 1 Documenting provider has reviewed patient's vital signs: yes Labs Labs: Laboratory Results - last 24 hr 12/07/22 12/08/22 12/08/22 15:50 05:42 05:42 WBC 18.72 H RBC 4.23 Hgb 13.2 Hct 38.0 MCV 90 MCH 31 MCHC 35 Plt Count 206 D-Dimer Quant (PE/DVT) < 0.27 VBG pH VBG pCO2 VBG pO2 VBG HCO3 Sodium Potassium Chloride Carbon Dioxide BUN Creatinine Estimated Creat Clear Estimated GFR Glucose Lactate 1.2 Calcium Phosphorus Magnesium C-Reactive Protein NT-Pro-B Natriuret Pep TSH 12/08/22 12/08/22 12/08/22 05:42 05:42 05:42 WBC RBC Hgb Hct MCV MCH MCHC Plt Count D-Dimer Quant (PE/DVT) VBG pH 7.409 VBG pCO2 39 L VBG pO2 38.1 VBG HCO3 25 Sodium 136 Potassium 3.9 Chloride 108 Carbon Dioxide 25 BUN 6 Creatinine 0.7 Estimated Creat Clear 97.17 Estimated GFR 123 Glucose 92 Lactate 0.9 Calcium 8.2 L Phosphorus 2.5 Magnesium 1.8 C-Reactive Protein 17.3 H NT-Pro-B Natriuret Pep 892 TSH 0.130 L Imaging Chest x-ray: Attestation: I have reviewed the pertinent imaging results. Radiologist's impression: Radiologist interpretation is still pending. My own interpretation is that patient has bilateral infiltrates.
[2022-12-08 15:02] LABS: Procalcitonin* 0.29 ng/mL (<0.50)
[2022-12-08] MEDS: metroNIDAZOLE 500 MG/100 ML PIGGYBACK IVPB ×2 (15:40→23:46)
[2022-12-08] MEDS: NICOTINE 14 mg PATCH 1 PATCH TRANSDERMA (17:33)
--- NOTE | 2022-12-08 17:47 | PC.NURSE ---
Shift note 15-19: Pt off suicidal 1:1, pleasant/cooperative, currently visiting w/ mother and sister. Temp 99.8, antibiotics started for asp pnx, lungs CTA, productive cough, producing thick yellow sputum, remains on 1L while sleeping as sats dip to 89%, otherwise 94-96% on RA when awake. Hope for Rule 25 assess tomorrow.
[2022-12-08] MEDS: VENLAFAXINE ER 75 MG CAPSULE 150 MG PO (21:09)
[2022-12-09] VITALS (7 sets, daily range): BP systolic 100–109; BP diastolic 60–83; PULSE 73–89; RESP 16–20; TEMP 36.6–37.1; O2SAT 92–96
[2022-12-09 06:20] LABS: Hematocrit 34.2 % (33.0-51.0); Mean Corpuscular HGB Conc 35 gm/dL (32-36); Mean Corpuscular Hemoglobin 31 pg (26-34); Mean Corpuscular Volume 89 fL (80-100); Platelet Count* 192 K/uL (140-440); Red Blood Count 3.84 m/uL (4.00-5.20); White Blood Count* 10.36 K/uL (4.50-11.00)
[2022-12-09 06:21] LABS: HCO3 VBG 28 mmol/L (21-28); Lactate* 0.5 mmol/L (0.5-1.9); PCO2 VBG 49 mmHG (40-50); PO2 VBG 95.2 mmHG (25-47); pH VBG 7.366 (7.32-7.43)
[2022-12-09 06:25] LABS: Slide Review Reflex No
[2022-12-09 06:40] LABS: Chloride* 107 mmol/L (96-114); Potassium* 3.8 mmol/L (3.6-5.1); Sodium* 136 mmol/L (135-149)
[2022-12-09 06:42] LABS: Creatinine* 0.6 mg/dL (0.5-1.5); Est. Creatinine Clearance* 113.36; Estimated Glomerular Filt Rate 128 ml/min
--- NOTE | 2022-12-09 06:42 | PC.NURSE ---
VSS on 1l of O2 via NC. Patient is alert and oriented x4, uses call light appropriately. Patient denies pain on assessment. IV antibiotic infused x2 this shift. Patient is independent with transfers. Pt appears to be stable, call light within reach.
[2022-12-09 06:43] LABS: Blood Urea Nitrogen* 7 mg/dL (5-24); Carbon Dioxide* 26 mmol/L (20-32)
[2022-12-09 06:44] LABS: Glucose* 115 mg/dL (60-115)
[2022-12-09 06:57] LABS: C Reactive Protein* 12.3 mg/dL (0.5-1.0)
[2022-12-09] MEDS: metroNIDAZOLE 500 MG/100 ML PIGGYBACK IVPB ×3 (07:26→21:51)
[2022-12-09] MEDS: BUPRENORPHINE-NALOX 8-2MG FILM 1 EACH SUBLINGUAL ×2 (09:16→21:08)
[2022-12-09] MEDS: GABAPENTIN 300 MG CAPSULE PO ×3 (09:17→21:07)
[2022-12-09] MEDS: PROPRANOLOL 20 MG TABLET 10 MG PO ×2 (09:17→21:07)
[2022-12-09] MEDS: SODIUM CHLORIDE 0.9 % (FLUSH) 10 ML SYRINGE 5 ML IVF ×2 (09:17→21:08)
--- NOTE | 2022-12-09 10:14 | PC.SOCIAL ---
Addendum entered by LINDY Mccoy 12/09/22 12:22: Pt.'s father Lee called yesterday afternoon and wanted an update on pt. and being admitted directly to a treatment facility. Pt. did not want me to update her father and said she will call him. Original Note: Jd Kohler from [facility] at [phone] is completing a Rule 25 assessment with pt. in her room here at the hospital this morning. He will work with pt. and the [facility] to secure inpatient chemical dependency treatment.
--- NOTE | 2022-12-09 10:33 | P.IMPN_ITS ---
Progress Note: A&P Assessment and plan (1) Drug overdose: Problem details: No indication of suicidality. Status: Acute Assessment and Plan: 1. Continue to work with [facility] to consider rule 25. (2) Aspiration pneumonia: Problem details: Yesterday my thought was that she had a pneumonitis only. With her fever, elevated white count, and persistent need for oxygen supplementation, I am more convinced she has an actual aspiration pneumonia. Status: Acute Assessment and Plan: 1. Continue with IV metronidazole 500 mg q.8 hours plus ceftriaxone IV 1 g daily. 2. Will consider switching to Augmentin at time of discharge. 3. Not ready for discharge. Still spiking fevers intermittently. Still oxygen requiring intermittently. May be ready for discharge in the next 1-2 days. (3) Hypoxia: Problem details: Still requiring oxygen supplementation at 1-2 liters/minute via nasal cannula. Status: Acute (4) Methamphetamine dependence, episodic: Problem details: On Suboxone Status: Acute Assessment and Plan: 1. Working with [facility] to consider treatment options. (5) Opioid abuse: Problem details: On Suboxone Status: Acute Assessment and Plan: 1. Working with [facility] to consider treatment options. (6) Dehydration syndrome: Problem details: Received IV fluids and improved. Status: Acute Assessment and Plan: No longer on IV fluids. Plan 1. Reviewed above with patient. Answered her questions. 2. Patient agreeable with above stated plans and recommendations. Time Spent With Patient Total time spent: 30 minutes Subjective Time Seen by Provider: 08:00 Date Seen: 12/09/22 Interval history: Hospital day 3. 27-year-old woman who overdosed on oxycodone 12/07/2022. Reportedly had an episode of acute respiratory failure that required resuscitation, CPR initially, and subsequently with Naloxone. Did awake after the Naloxone. Had nausea and vomiting as well. Is believed to have aspirated at that time. Subsequently placed on oxygen and transported to the emergency department for additional assessment and intervention. Had another vomiting episode in the [facility] Emergency Department, not believed to have aspirated at that time. Admitted to the hospital for further observation given her hypoxemia with room air oxygen saturations of 88-90% requiring low-flow oxygen supplementation to maintain oxygen saturations greater than 90%. Patient denies any suicidality. She acknowledges methamphetamine and opioid abuse and dependence. Is working with a [facility] professor of social work to try to obtain additional treatment for her chemical dependency. Feels even improved today compared to yesterday. Tolerating eating and drinking. No further nausea or vomiting. Is currently on buprenorphine/naloxone and tolerating. T-max 100.3? F yesterday afternoon. Still requiring oxygen supplementation to maintain oxygen saturations greater than 90%, but less frequently and intermittently able to maintain resting RA SaO2 in lower 90s. Cough occasionally productive. Utilizing the Aerobika device appropriately. Tolerating increased activities. Exam Narrative: Exam Narrative: No acute distress. Appears comfortable. Intermittently coughing. Alert, oriented to self, place, time, situation. Articulate, cooperative, friendly. Mood and affect are congruent. Lungs fairly clear to auscultation this morning, vast improvement compared to yesterday. Intermittent rhonchi clear with cough. No wheezing or rales today. Heart tones with regular rhythm, normal S1-S2. No murmur, gallop, or rub. Abdomen with active bowel sounds, soft, nontender. Extremities without palpable edema. No focal motor neurologic deficits. No tremor, asterixis, or ataxia. Skin is warm, dry, intact. No icterus, jaundice, petechiae, rashes. Const: Vital Signs, click to edit/add: Vital Signs - 24 hr 12/08/22 11:00 12/08/22 15:30 12/08/22 15:30 Temperature 100.3 F H Pulse Rate 101 H Pulse Rate [Apical ] Pulse Rate [Brachi al] 101 H Pulse Rate [Pulse Oximeter] Respiratory Rate 16 Blood Pressure [Ri [facility] Arm] 114/73 Pulse Oximetry 94 97 Oxygen Delivery Me thod Nasal Cannula Oxygen Flow Rate 1 12/08/22 15:30 12/08/22 15:30 12/08/22 15:30 Temperature 99.8 F H Pulse Rate Pulse Rate [Apical ] 101 H Pulse Rate [Brachi al] Pulse Rate [Pulse Oximeter] 101 H Respiratory Rate 18 18 18 Blood Pressure [Ri t Arm] 106/73 Pulse Oximetry 94 94 Oxygen Delivery Me thod Nasal Cannula Nasal Cannula Oxygen Flow Rate 1 1 12/08/22 19:00 12/08/22 23:00 12/08/22 23:00 Temperature 99.7 F H Pulse Rate Pulse Rate [Apical ] 101 H Pulse Rate [Brachi al] Pulse Rate [Pulse Oximeter] 107 H 107 H Respiratory Rate 20 20 Blood Pressure [Ri ght Arm] 102/72 Pulse Oximetry 93 92 Oxygen Delivery Me thod Room Air Oxygen Flow Rate 12/08/22 23:00 12/08/22 23:00 12/09/22 03:00 Temperature 99.2 F 98.7 F Pulse Rate Pulse Rate [Apical ] Pulse Rate [Brachi al] Pulse Rate [Pulse Oximeter] 92 81 Respiratory Rate 18 20 Blood Pressure [Ri ght Arm] 100/63 106/60 Pulse Oximetry 94 93 Oxygen Delivery Me thod Nasal Cannula Nasal Cannula Room Air Oxygen Flow Rate 12/08/22 23:00 12/09/22 07:30 12/09/22 07:30 Temperature Pulse Rate 77 Pulse Rate [Apical ] Pulse Rate [Brachi al] Pulse Rate [Pulse Oximeter] Respiratory Rate 16 Blood Pressure [Ri ght Arm] Pulse Oximetry 95 93 Oxygen Delivery Me thod Room Air Oxygen Flow Rate 1 12/09/22 07:30 12/09/22 07:20 Temperature 98.6 F Pulse Rate 73 Pulse Rate [Apical ] 80 Pulse Rate [Brachi al] Pulse Rate [Pulse Oximeter] 80 Respiratory Rate 16 Blood Pressure [Ri ght Arm] 100/69 Pulse Oximetry 95 Oxygen Delivery Me thod Nasal Cannula Oxygen Flow Rate 1 Documenting provider has reviewed patient's vital signs: yes Labs Labs: Laboratory Results - last 24 hr 12/08/22 12/09/22 12/09/22 05:42 05:50 05:50 WBC 10.36 RBC 3.84 L Hgb 12.0 Hct 34.2 MCV 89 MCH 31 MCHC 35 Plt Count 192 VBG pH VBG pCO2 VBG pO2 VBG HCO3 Sodium 136 Potassium 3.8 Chloride 107 Carbon Dioxide 26 BUN 7 Creatinine 0.6 Estimated Creat Clear 113.36 Estimated GFR 128 Glucose 115 Lactate Calcium 8.0 L C-Reactive Protein 12.3 H Procalcitonin 0.29 12/09/22 05:50 WBC RBC Hgb Hct MCV MCH MCHC Plt Count VBG pH 7.366 VBG pCO2 49 VBG pO2 95.2 H VBG HCO3 28 Sodium Potassium Chloride Carbon Dioxide BUN Creatinine Estimated Creat Clear Estimated GFR Glucose Lactate 0.5 Calcium C-Reactive Protein Procalcitonin
[2022-12-09] MEDS: ONDANSETRON ODT 4 MG TAB PO ×2 (12:14→21:32)
--- NOTE | 2022-12-09 13:06 | NUTR.NU ---
Addendum entered by Linda Kohler RD 12/09/22 13:20: Pt's skin is intact. Original Note: Nutrition screen complete. Met with patient and discussed intake and appetite for past several months and past couple days. Pt states she hasn't been eating great, but surprised at her recorded weight of 132 lbs. Pt was reweighed in the room and weight is 152 lb. Nursing to reenter this. Per pt, this is a stable weight for her. Pt states she fixates on food and will go for a periods where her go-to food is one food like jello, or gummy bears or other. She states she has a 'head block' and can't override those urges. And then suddenly this will stop, and that same food will cause her to have dry heaves. Pt has had minimal intake since admission due to nausea associated with anxiety. MD has just ordered Zofran and pt willing to try jello, sandwhiches. Strategies for improving intake when feeling nauseous reviewed with pt (small amounts, cold foods, liquids..) No supplements recommended at this time. RD will continue to monitor intake and diet tolerance and follow-up as needed.
[2022-12-09] MEDS: cefTRIAXone 1 GM in 0.9 % SODIUM CHLORIDE Mini-bag 100 ML IVPB (14:18)
--- NOTE | 2022-12-09 15:39 | PC.NURSE ---
Pt eval by Dr. Cardenas this am. Calm, cooperative with cares. UAL in room, pt independent with ADLS. Poor appetite @ bkfst secondary to c/o nausea. New order for zofran ODT initiated. Pt underwent chemical dependency screening at bedside. Nutritional consult this afternoon. Pt did eat sherbert, 2 jellos and some applejuice after visiting with dietitian. IV Rocephin and IV Flagyl given for hx of aspiration pneumonia. Report to Cheryl DAMON for evening shift.
--- NOTE | 2022-12-09 15:51 | PC.NURSE ---
Addendum: Tele indicates NSR, pt denies CP or SOB. Sats maintained on r/a.
[2022-12-09] MEDS: NICOTINE 14 mg PATCH 1 PATCH TRANSDERMA (17:17)
--- NOTE | 2022-12-09 19:26 | PC.NURSE ---
Care assumed at 1500, pt alert and oriented, sleepy this shift. Denies pain, up to bathroom ind, voiding without difficulty, intermit cough w/ sputum production. Pt states improvement with sputum. Vitals stable. Nicotine patch replaced to L upper back of arm this evening. Pt ordered and ate dinner, tolerating diet. Call light within reach and uses appropriately.
[2022-12-09] MEDS: VENLAFAXINE ER 75 MG CAPSULE 150 MG PO (21:07)
[2022-12-10 03:00] VITALS: BP 107/65; PULSE 75; RESP 18; TEMP 36.6; O2SAT 94
--- NOTE | 2022-12-10 06:21 | PC.NURSE ---
Patient is alert and oriented x4, able to call for help. Patient denies pain on assessment. Independent in room. Iv antibiotic infused x2 this shift. Call light with in reach.
[2022-12-10] MEDS: metroNIDAZOLE 500 MG/100 ML PIGGYBACK IVPB ×2 (06:35→12:53)
[2022-12-10 07:00] VITALS: BP 120/82; PULSE 81; RESP 18; TEMP 36.7; O2SAT 92
[2022-12-10 07:13] LABS: Hematocrit 35.3 % (33.0-51.0); Hemoglobin* 12.3 gm/dL (12.0-16.0); Mean Corpuscular HGB Conc 35 gm/dL (32-36); Mean Corpuscular Hemoglobin 31 pg (26-34); Mean Corpuscular Volume 89 fL (80-100); Platelet Count* 184 K/uL (140-440); Red Blood Count 3.99 m/uL (4.00-5.20); White Blood Count* 5.73 K/uL (4.50-11.00)
[2022-12-10 07:17] LABS: Slide Review Reflex No
[2022-12-10 07:32] LABS: C Reactive Protein* 5.2 mg/dL (0.5-1.0)
[2022-12-10 07:57] VITALS: PULSE 69
[2022-12-10] MEDS: PROPRANOLOL 20 MG TABLET 10 MG PO (08:53)
[2022-12-10] MEDS: GABAPENTIN 300 MG CAPSULE PO ×2 (08:53→12:53)
[2022-12-10] MEDS: BUPRENORPHINE-NALOX 8-2MG FILM 1 EACH SUBLINGUAL (08:54)
[2022-12-10] MEDS: SODIUM CHLORIDE 0.9 % (FLUSH) 10 ML SYRINGE 5 ML IVF (08:54)
[2022-12-10 11:10] VITALS: BP 109/78; PULSE 80; RESP 16; TEMP 37; O2SAT 93
[2022-12-10] MEDS: cefTRIAXone 1 GM in 0.9 % SODIUM CHLORIDE Mini-bag 100 ML IVPB (12:00)
--- NOTE | 2022-12-10 14:16 | PC.NURSE ---
Discharge. pt has been very pleasant. no pain. pt alert and oriented, she is still sleepy. pt is up ab daren. Aerobika used intermit cough w/ sputum production. Pt states improvement with sputum. Vitals stable. Nicotine patch to L upper back of arm Pt is eating drinking and voiding. no problems. Call light within reach and uses appropriately. went over discharge packet with pt. went over medications, appointments, instructions and educations. she took all belongings and paperwork. walked her to ER entrance to wait for a ride.
--- NOTE | 2022-12-10 14:35 | P.DS_ITS ---
DS: Providers Provider Time Seen by Provider: 08:00 Date Seen: 12/10/22 Date of admission: 12/08/22 14:33 Primary care physician: Chirag Mckenna MD Admitting Clinician: Kurt Cardenas MD Consults: 12/07/22 08:46 Consult to Business Systems Advisor [CONS] Routine Comment: Reason for Consult:: Social Service Consult Attending Physician on discharge: Kurt Cardenas MD Date of Discharge: 12/10/22 DS: Diagnosis Discharge Diagnosis (1) Aspiration pneumonia: Status: Acute Problem details: Initially thought to be only chemical induced pneumonitis from aspiration. In a relatively short period of time she developed a fever, elevated white count, and persistent need for oxygen supplementation, consistent with an actual aspiration pneumonia. Treated with IV ceftriaxone and IV metronidazole in hospital for 2 and half days, then discharged home on oral antibiotic without need for oxygen thereafter. (2) Hypoxia: Status: Acute Problem details: Initially required oxygen supplementation at 2 liters/minute via nasal cannula. Over time she was able to maintain satisfactory saturations on room air only without oxygen supplementation. (3) Drug overdose: Status: Acute Problem details: Was snorting oxycodone. No indication of suicidality. (4) Opioid abuse: Status: Acute Problem details: On Suboxone in the past, but no longer using. (5) Methamphetamine dependence, episodic: Status: Acute Problem details: On Suboxone in the past, but no longer using. Working with [facility] director of social media marketing to establish a rule 25 to pay for additional chemical dependency treatment. (6) Dehydration syndrome: Status: Acute Problem details: Received IV fluids and improved. DS: Summary Hospital Course Hospital Course: Elisabeth Groves is a 27 year old woman with known methamphetamine dependence and history of opioid abuse.? Reportedly she was on an oipioid binge for 1 week.? She was reportedly snorting oxycodone, possibly laced with fentanyl.? According to her friend that was with her the patient stopped breathing.? The friend summoned EMS and started CPR.? Patient received CPR for roughly 1-3 minutes.? EMS promptly arrived.? EMS administered Narcan.? Patient awakened and vomited and likely aspirated.? They transported her to emergency department. In our emergency department the patient had another vomiting episode.? On room air patient oxygen saturation was 88-90%.? With oxygen at 1 liter/minute via nasal cannula she is saturating in the mid 90s.? Chest x-ray AP and lateral view obtained demonstrating infiltrate consistent with aspiration pneumonitis.? Normal white blood cell count.? No fever.? Urine drug screen positive for methamphetamine and opioids.? Patient treated with lorazepam and diphenhydramine for ongoing withdrawal.? Patient admitted to the hospital for observation for oxygen support. In hospital we continued to support with IV fluids until such time she was able to eat and drink again. We continued to support with oxygen until such time as she no longer required oxygen supplementation. On hospital day 2, she developed a fever as high as 101? F. A repeat chest x-ray confirmed aspiration pneumonia infiltrate, worse than what we saw on 1st presentation. We initiated ceftriaxone IV plus metronidazole IV. We continued with the IV antibiotics throughout the remainder hospitalization. Our director of social media marketing staff worked in concert with the [facility] staff to assess the patient for eligibility for [facility] to help her with additional chemical dependency treatment. [facility] director of social media marketing is working closely with the patient to develop a plan now. Status at Discharge Functional status at discharge: independent ambulation Overall status at discharge: patient is back to baseline Time Spent with Patient Time attestation: Total time spent providing and/or coordinating discharge services: Time spent: Greater than 30 minutes Exam Narrative: Exam Narrative: No acute distress.? Appears comfortable. Intermittently coughing, but much improved. Alert, oriented to self, place, time, situation.? Articulate, cooperative, friendly.? Mood and affect are congruent.? No longer requiring oxygen supplementation with room air oxygen saturations of 96% with respiratory rate of 14 to 16. Lungs clear to auscultation this morning, vast improvement compared to yesterday.? Intermittent rhonchi clears with cough.? No wheezing or rales today. Not utilizing accessory muscles of respiration. Heart tones with regular rhythm, normal S1-S2.? No murmur, gallop, or rub.? Abdomen with active bowel sounds, soft, nontender.? Extremities without palpable edema. No focal motor neurologic deficits.? No tremor, asterixis, or ataxia. Independent transfer, station, and gait. Skin is warm, dry, intact. No icterus, jaundice, petechiae, rashes. Const: Vital Signs, click to edit/add: Vital Signs - 24 hr 12/09/22 15:00 12/09/22 15:00 12/09/22 15:00 Temperature 97.9 F Pulse Rate 79 Pulse Rate [Apical ] Pulse Rate [Pulse Oximeter] 74 Respiratory Rate 16 Blood Pressure [Ri ght Arm] 102/69 Pulse Oximetry 95 96 Oxygen Delivery Me thod Room Air Room Air 12/09/22 15:00 12/09/22 19:00 12/09/22 23:00 Temperature 98 F Pulse Rate Pulse Rate [Apical ] Pulse Rate [Pulse Oximeter] 89 Respiratory Rate 18 Blood Pressure [Ri ght Arm] 109/80 Pulse Oximetry 96 92 94 Oxygen Delivery Me thod Room Air 12/09/22 23:00 12/09/22 23:00 12/09/22 23:00 Temperature 98 F Pulse Rate Pulse Rate [Apical ] 75 88 Pulse Rate [Pulse Oximeter] 89 88 Respiratory Rate 18 18 Blood Pressure [Ri ght Arm] 106/83 Pulse Oximetry 94 94 Oxygen Delivery Ut thod Room Air Room Air 12/09/22 23:00 12/10/22 03:00 12/10/22 07:57 Temperature 97.9 F Pulse Rate 73 69 Pulse Rate [Apical ] Pulse Rate [Pulse Oximeter] 75 Respiratory Rate 18 Blood Pressure [Ri ght Arm] 107/65 Pulse Oximetry 94 Oxygen Delivery Ut thod Room Air 12/10/22 07:00 12/10/22 07:00 12/10/22 07:00 Temperature 98.0 F Pulse Rate Pulse Rate [Apical ] Pulse Rate [Pulse Oximeter] 81 Respiratory Rate 18 18 Blood Pressure [Ri ght Arm] 120/82 Pulse Oximetry 92 92 92 Oxygen Delivery Ut thod Room Air Room Air 12/10/22 07:00 12/10/22 11:10 Temperature 98.6 F Pulse Rate Pulse Rate [Apical ] Pulse Rate [Pulse Oximeter] 81 80 Respiratory Rate 18 16 Blood Pressure [Ri ght Arm] 109/78 Pulse Oximetry 93 Oxygen Delivery Me thod Room Air Documenting provider has reviewed patient's vital signs: yes DS: Data Data Completed and Pending Labs on day of discharge: Labs from last 24 hours 12/10/22 12/10/22 07:01 07:01 WBC 5.73 RBC 3.99 L Hgb 12.3 Hct 35.3 MCV 89 MCH 31 MCHC 35 Plt Count 184 C-Reactive Protein 5.2 H Procalcitonin 0.10 Preliminary micro results at discharge 12/08/22 14:49 Blood Culture - Preliminary Blood NO GROWTH AFTER 24 HOURS 12/08/22 14:55 Blood Culture - Preliminary Blood NO GROWTH AFTER 24 HOURS Imaging Chest x-ray: Attestation: I have reviewed the pertinent imaging results. Radiologist's impression: Chest x-ray obtained on 12/08/2022: Findings/Impression: Cardiovascular and mediastinum:? Heart size and vasculature are normal in caliber and appearance.? Mediastinum is within normal limits.? Lungs and pleural spaces:? No pleural effusion or pneumothorax. Bilateral bronchial wall thickening with some interstitial opacities in the right lung with more focal opacities in the left lung base. Compared to the prior examination, opacities in the left lung base have increased. Bones and soft tissues:? No significant findings. Discharge Plan Discharge Disposition: Home, Self-Care Date of Admission: 12/08/22 14:33 Primary Care Provider: Chirag Mckenna Condition: Stable Anticipated Discharge Date/Time: 12/10/22 14:00 Discharge Medications: New propranolol 20 mg Tablet 10 mg PO BID 30 Days Qty: 15 0RF amoxicillin-pot clavulanate 875-125 mg tablet 1 tab PO BID Qty: 6 0RF Continued gabapentin 300 mg capsule 300 mg PO TID venlafaxine 150 mg capsule,extended release 24hr 150 mg PO DAILY Roum-Bdkz-Plrn(vit A,C-biotin) 2,500 unit-100 mg-2,500 mcg capsule 1 cap PO DAILY Discontinued propranolol 10 mg tablet 10 mg PO DAILY PRN Rx Instructions: prn anxiety Discharge Orders: Discharge Order (Routine); Ordered 12/10/22 Ordered By: Kurt Cardenas Patient Education: Propranolol (By mouth) (Inderal LA, Inderal XL, InnoPran XL, Hemangeol), Amoxicillin/Clavulanate Potassium (By mouth) (Augmentin, Augmenti n..., How to Stop Smoking (GEN), Shopping for a Healthy Diet (GEN), Cigarette Smoking and Your Health (GEN), Aspiration Pneumonia (IP), Cannabis Abuse (GEN), Methamphetamine Abuse (GEN), Aspiration Precautions (GEN) Additional Instructions: 1. Establish, engage with, build healthy network of family, friends, and professionals to support your short-term and long-term sobriety goals, plans, and efforts; 2. Smoking cessation; 3. Healthy living efforts. Activity Level: No Restrictions Discharge Diet: Regular Follow Up Appointments: Chirag Mckenna MD [Primary Care Provider] - 12/15/22 1:15 pm ([facility]) Forms: [employer] Info Instructions
== END 2022-12-10 14:00 | disposition home or self-care (01) | DRG 917 ==
LOC: ED 07:49 → MEDSURG 08:25
PROVIDERS: Admitting Provider Internal Medicine; Emergency Provider Family Medicine; PCP Family Medicine; Visit Provider Internal Medicine
DX: T40.2X1A Poisoning by other opioids, accidental (unintentional), initial encounter (principal); J69.0 Pneumonitis due to inhalation of food and vomit; F15.20 Other stimulant dependence, uncomplicated; F11.20 Opioid dependence, uncomplicated; R09.02 Hypoxemia; E86.0 Dehydration; Y92.59 Other trade areas as the place of occurrence of the external cause; R11.2 Nausea with vomiting, unspecified; R00.0 Tachycardia, unspecified; F17.290 Nicotine dependence, other tobacco product, uncomplicated; E07.81 Sick-euthyroid syndrome; F41.9 Anxiety disorder, unspecified; F32.9 Major depressive disorder, single episode, unspecified; Z91.51 Personal history of suicidal behavior
CPT/HCPCS: 36415; 71045; 71046; 80048; 80076; 80143; 80179; 80306; 81003; 81015; 81025; 82077; 82803; 83605; 83735; 83880; 84100; 84145; 84443; 84484; 84703; 85025; 85027; 85379; 85610; 85730; 86140; 87040; 87086; 87186; 87502; 87634; 87635; 93005; 94664; 94761; 99285; 99291; G0378; A9270; J0574; J0696; J1200; J2060; J2405; J7030; J7120; S0030; S4990

== ENCOUNTER 2023-04-13 10:09 | Emergency (ER) | payer MEDICAID, SELFPAY ==
[2023-04-13 10:58] VITALS: BP 105/73; PULSE 93; RESP 18; TEMP 36.2; O2SAT 97
--- NOTE | 2023-04-13 11:04 | ED.GENADULT ---
HPI - General Adult General Chief complaint: Nausea/Vomiting Stated complaint: vomiting 5+ days, wants zofran and IV Time Seen by Provider: 04/13/23 11:03 History of Present Illness HPI narrative: 27-year-old young woman presenting to the emergency department with complaint of frequent vomiting over the last 6 days. Can not really keep anything down she says. She says this is related to GERD. Further questioning, it appears that she was told to discontinue proton pump inhibitor as was causing some changes to her stomach as she reports that. At this point she only uses baking soda and water sometimes if she starting to feel her GERD flare. Has had these episodes before and just wants fluid resuscitation and Zofran. She ran out of Zofran at home a few days ago. History of substance abuse. She notes herself to be 100 days sober. She seems quite pleased. She is working to get her daughter back. Is not having any belly pain really outside of the episodes of vomiting. Has not noted hematemesis. Related Data Home Medications Medication Instructions Recorded Confirmed gabapentin 300 mg capsule 300 mg PO TID 09/08/22 12/08/22 venlafaxine 150 mg 150 mg PO DAILY 09/08/22 12/07/22 capsule,extended release 24 hr vitamin A 2,500 unit-vit C 100 1 cap PO DAILY 12/08/22 12/08/22 mg-biotin 2,500 wlm-keqy-odyvmb capsule (Ghio-Tegz-Scrk (vit A,F-gqhjst-Xy-Cu)) Previous Rx's Medication Instructions Recorded amoxicillin 875 mg-potassium 1 tab PO BID #6 tabs 12/10/22 clavulanate 125 mg tablet propranolol 20 mg tablet 10 mg (1/2 x 20 mg) PO BID 30 days 12/10/22 #15 tabs omeprazole 40 mg capsule,delayed 40 mg PO DAILY #30 caps 04/13/23 release Allergies Allergy/AdvReac Type Severity Reaction Status Date / Time bupropion [From Wellbutrin] Allergy Intermediate Hives Verified 12/15/22 11:12 morphine Allergy Intermediate Abdominal Verified 12/15/22 11:12 Pain Review of Systems Status of ROS: Reports: 6 or more systems reviewed and unremarkable except as noted in History and below [facility] Medical History Postoperative pain ?G89.18 - Other acute postprocedural pain (ICD-10) History of panic disorder ?Z86.59 - Personal history of other mental and behavioral disorders (ICD-10) Recurrent subluxation of patella, right knee ?M22.11 - Recurrent subluxation of patella, right knee (ICD-10) (normal spontaneous vaginal delivery) ?O80 - Encounter for full-term uncomplicated delivery (ICD-10) Migraine headache with aura ?G43.109 - Migraine with aura, not intractable, without status migrainosus (ICD-10) Opioid abuse ?F11.10 - Opioid abuse, uncomplicated (ICD-10) Methamphetamine dependence, episodic ?F15.20 - Other stimulant dependence, uncomplicated (ICD-10) History of attempted suicide ?Z91.51 - Personal history of suicidal behavior (ICD-10) Major depressive disorder ?F32.9 - Major depressive disorder, single episode, unspecified (ICD-10) Anxiety disorder ?F41.9 - Anxiety disorder, unspecified (ICD-10) Surgical History History of tonsillectomy and adenoidectomy ?Z90.89 - Acquired absence of other organs (ICD-10) History of tonsillectomy ?Z90.89 - Acquired absence of other organs (ICD-10) Status post tonsillectomy and adenoidectomy ?Z90.89 - Acquired absence of other organs (ICD-10) History of wisdom tooth extraction ?K08.409 - Partial loss of teeth, unspecified cause, unspecified class (ICD-10) Social History Highest level of school completed/degree received: high school graduate Smoking Status: Current every day smoker Do you use any of these nicotine containing products: Vaping Products Second hand tobacco smoke exposure: No How often do you have a drink containing alcohol: never AUDIT-C Alcohol total score: 0 Non-prescribed substance use: denies use and opiods/painkillers Non-prescribed substance use details: 04/10/23- Pt not currently using Update 12/07/22: pt relapsed, taking Perc 30s Former IV drug user, currently taking suboxone service: No Exam Narrative: Exam Narrative: Pleasant. NAD. Appears generally uncomfortable. Shovel. Mouth is a little sticky. Cranial nerves 2-12 intact. Skin is warm and dry the face looks a little flushed. Lungs are clear. Heart in an elevated rate and regular rhythm. Abdomen is soft little tender generally. No masses appreciated. Const: Vital Signs, click to edit/add: Vital Signs - 24 hr 04/13/23 10:58 Temperature 97.2 F L Pulse Rate [Right Pulse Oximeter] 93 Respiratory Rate 18 Blood Pressure [Ri ght Upper Arm] 105/73 Pulse Oximetry 97 Oxygen Delivery Me thod Room Air Documenting provider has reviewed patient's vital signs: yes Course Vital Signs Vital signs: Initial Vital Signs Temperature 97.2 F L 04/13/23 10:58 Temperature Source Temporal Artery Scan 04/13/23 10:58 Pulse Rate 93 04/13/23 10:58 Respiratory Rate 18 04/13/23 10:58 Blood Pressure 105/73 04/13/23 10:58 Blood Pressure Mean 83 04/13/23 10:58 Blood Pressure Position Sitting 04/13/23 10:58 Pulse Oximetry 97 04/13/23 10:58 Oxygen Delivery Method Room Air 04/13/23 10:58 Vital Signs Temperature 97.2 F L 04/13/23 10:58 Pulse Rate 93 04/13/23 10:58 Respiratory Rate 18 04/13/23 10:58 Blood Pressure 105/73 04/13/23 10:58 Pulse Oximetry 97 04/13/23 10:58 Oxygen Delivery Method Room Air 04/13/23 10:58 Temperature 97.2 F L 04/13/23 10:58 Pulse Rate 93 04/13/23 10:58 Respiratory Rate 18 04/13/23 10:58 Blood Pressure 105/73 04/13/23 10:58 Pulse Oximetry 97 04/13/23 10:58 Oxygen Delivery Method Room Air 04/13/23 10:58 Medical Decision Making MDM Narrative Medical decision making narrative: Seems to have a vomiting illness in the setting of GERD and anxiety. Will treat symptoms at this point. She is not particularly interested in having labs drawn and I do not see significant reason for that at this point. Ordered for IV fluids, lorazepam and eventually GI cocktail. Overall improved though still or P. Discussed continued treatment though I am not sure what that would be at this point. Her preference is to return home to convalesce. See patient discharge plan Discharge Plan Discharge Clinical Impression: GERD (gastroesophageal reflux disease), Vomiting Patient Disposition: Home w/ Parent or Adult Condition: Improved Additional Instructions: Slow advance of diet over the next 24-36 hours. I would try to avoid straight water on an empty stomach. Diluted juices maybe, popsicles, Jell-O. Soup broths. Crackers, rice, toast. Return for intractable vomiting, marked increase in abdominal pain, associated fever. Ciaran from [facility]. I would also take a proton pump inhibitor for 2 weeks and then reassess Prescriptions: New omeprazole 40 mg capsule,delayed release(DR/EC) 40 mg PO DAILY Qty: 30 0RF No Action gabapentin 300 mg capsule 300 mg PO TID venlafaxine 150 mg capsule,extended release 24hr 150 mg PO DAILY Jwom-Xaic-Hzec(vit A,C-biotin) 2,500 unit-100 mg-2,500 mcg capsule 1 cap PO DAILY propranolol 20 mg Tablet 10 mg PO BID 30 Days Qty: 15 0RF amoxicillin-pot clavulanate 875-125 mg tablet 1 tab PO BID Qty: 6 0RF Follow Up/Referrals: Chirag Mckenna MD [Primary Care Provider] - Stand Alone Forms: [employer] Info Instructions
[2023-04-13] MEDS: 0.9 % SODIUM CHLORIDE 1000 ml 1,000 ML IV (11:44)
[2023-04-13] MEDS: ONDANSETRON 2 MG/ML inj 4 MG IVP (11:44)
--- NOTE | 2023-04-13 11:57 | ED.NURSE ---
Pt reports long history of GERD. States she frequently gets nausea and vomiting in relation to her GERD and she usually has Zofran at home to take for these episodes. She does not have any at this time which is why she is in the ER. Dr. Kerr ordered IV Zofran and total of 2,000 mL NS bolus. Zofran given and fluids started as ordered. Will continue to monitor and assess.
--- NOTE | 2023-04-13 12:10 | ED.NURSE ---
Pt reports nausea improving upon reevaluation. Ice chips given per pt request.
--- NOTE | 2023-04-13 12:36 | ED.NURSE ---
Pt reassessed and reported she began to gag when attempting to eat some ice chips. Stated the nausea was still present despite zofran. Dr. Macias notified at [id number].
[2023-04-13] MEDS: 0.9 % SODIUM CHLORIDE 1000 ml 1,000 ML 1200 ML IV (13:10)
[2023-04-13] MEDS: METOCLOPRAMIDE HCL 10 MG in 0.9 % SODIUM CHLORIDE 100 ml 100 ML 306 MG IVPB (13:38)
[2023-04-13] MEDS: LORazepam 2 MG/ML inj 0.5 MG IVP (13:39)
[2023-04-13] MEDS: GI COCKTAIL (VISC LIDO/ANTACID) 30 ML PO (14:00)
--- NOTE | 2023-04-13 14:16 | ED.NURSE ---
Pt given GI cocktail @ 1400. At 1405, pt began dry heaving, then vomited up approximately 50 mL of watery white liquid. Dr. Macias notified verbally at 1408.
== END 2023-04-13 15:46 | disposition home or self-care (01) ==
PROVIDERS: Emergency Provider Family Medicine; PCP Family Medicine
DX: K21.9 Gastro-esophageal reflux disease without esophagitis (principal); R11.10 Vomiting, unspecified
CPT/HCPCS: 99283; 99284; A9270; J2060; J2405; J2765; J7030

== ENCOUNTER 2024-01-12 18:33 | Outpatient (CLI) | payer MEDICAID, SELFPAY | END 2024-01-12 18:34 | disposition home or self-care (01) | LOC: AMB 01-13 12:50 | PROVIDERS: PCP Family Medicine; Visit Provider Family Medicine | DX: T50.912A Poisoning by multiple unspecified drugs, medicaments and biological substances, intentional self-harm, initial encounter (principal) | CPT/HCPCS: A0425; A0427 ==

== ENCOUNTER 2024-01-12 19:11 | Emergency (ER) | payer MEDICAID, SELFPAY ==
[2024-01-12] VITALS (15 sets, daily range): BP systolic 93–152; BP diastolic 67–99; PULSE 85–93; RESP 16–42; TEMP 36.1; O2SAT 82–96
[2024-01-12] MEDS: LORazepam 2 MG/ML inj 1 MG IVP ×2 (19:18→19:28)
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
[2024-01-12] MEDS: 0.9 % SODIUM CHLORIDE 1000 ml 1,000 ML IV (19:38)
[2024-01-12 19:40] LABS: HCO3 VBG 27 mmol/L (21-28); Lactate* 1.2 mmol/L (0.5-1.9); PCO2 VBG 50 mmHG (40-50); PO2 VBG < 30.1 mmHG (25-47); pH VBG 7.338 (7.32-7.43)
[2024-01-12 19:44] LABS: Basophils Absolute Auto 0.02 K/uL (0.00-0.30); Basophils Percent Auto 0.2 % (0.0-3.0); Eosinophils Absolute Auto 0.04 K/uL (0.00-0.50); Eosinophils Percent Auto 0.4 % (0.0-7.0); Hematocrit 40.7 % (33.0-51.0); Hemoglobin* 14.1 gm/dL (12.0-16.0); Immature Granulocytes Abs Auto 0.03 K/uL (0.00-0.30); Immature Granulocytes Pct Auto 0.3 %; Lymphocytes Percent Auto 18.4 % (20-44); Mean Corpuscular HGB Conc 35 gm/dL (32-36); Mean Corpuscular Hemoglobin 31 pg (26-34); Mean Corpuscular Volume 89 fL (80-100); Monocytes Percent Auto 5.7 % (0.0-11.0); Platelet Count* 368 K/uL (140-440); RDW Coefficient of Variation % 12.3 % (11.5-15.5); Red Blood Count 4.58 m/uL (4.00-5.20); White Blood Count* 10.79 K/uL (4.50-11.00)
[2024-01-12 19:55] LABS: Slide Review Reflex No
[2024-01-12 20:00] LABS: Amphetamine Screen Urine POSITIVE (Negative); Barbiturate Screen Urine Negative (Negative); Benzodiazepines Screen Urine Negative (Negative); Cannabinoid Screen Urine POSITIVE (Negative); Cocaine Screen Urine Negative (Negative); Methadone Screen Urine Negative (Negative); Methamphetamines Screen Urine POSITIVE (Negative); Opiate Screen Urine Negative (Negative); Oxycodone Screen Urine Negative (Negative); Phencyclidine Screen Urine Negative (Negative); Tricyclic Antidepressant Urine POSITIVE (Negative)
[2024-01-12 20:21] LABS: Albumin* 3.7 g/dL (3.3-5.0); Chloride* 105 mmol/L (96-114)
[2024-01-12 20:22] LABS: Potassium* 4.2 mmol/L (3.6-5.1); Sodium* 138 mmol/L (135-149)
[2024-01-12 20:24] LABS: Alkaline Phosphatase* 65 U/L (40-150); Anion Gap 6 mEq/L (7-15); Aspartate Amino Transferase* 25 U/L (12-35); Bilirubin Direct* 0.2 mg/dL (0.0-0.5); Bilirubin Total* 0.6 mg/dL (0.1-1.5); Blood Urea Nitrogen* 14 mg/dL (5-24); Carbon Dioxide* 27 mmol/L (20-32); Creatinine* 0.8 mg/dL (0.5-1.5); Estimated Glomerular Filt Rate 104 ml/min; Glucose* 93 mg/dL (60-115); Total Protein* 6.3 g/dL (6.0-8.3)
[2024-01-12 20:25] LABS: Alanine Aminotransferase* 14 U/L (4-35); Magnesium* 2.1 mg/dL (1.5-2.6)
[2024-01-12 20:36] LABS: Acetaminophen* < 10.0 ug/mL (10.0-30.0); Ethanol* < 0.01 % (0.01-0.03); NT Pro B Type NatriureticPept* 72 pg/mL
[2024-01-12] MEDS: ONDANSETRON 2 MG/ML inj 4 MG IVP (20:44)
[2024-01-12] MEDS: MIDAZOLAM HCL 1 MG/ML inj 2 MG IVP (20:44)
[2024-01-12 20:47] LABS: Ur HCG Qualitative* Negative (Negative)
[2024-01-12 20:49] LABS: Troponin I* < 0.01 ng/mL (0.01-0.04)
[2024-01-12 21:00] LABS: Salicylate* < 1.0 mg/dL (1.0-10)
== END 2024-01-12 21:26 | disposition short-term general hospital (02) ==
PROVIDERS: Emergency Provider Family Medicine; PCP Family Medicine
DX: T50.992A Poisoning by other drugs, medicaments and biological substances, intentional self-harm, initial encounter (principal)
CPT/HCPCS: 51702; 36415; 80048; 80076; 80143; 80179; 80306; 81025; 82077; 82803; 83605; 83735; 83880; 84484; 85025; 93005; 94761; 99284; 99291; 99292; J2060; J2250; J2405; J7030

== ENCOUNTER 2024-01-12 20:45 | Outpatient (CLI) | payer MEDICAID, SELFPAY | END 2024-01-12 20:46 | disposition home or self-care (01) | LOC: AMB 01-14 10:38 | PROVIDERS: PCP Family Medicine; Visit Provider Family Medicine | DX: R45.851 Suicidal ideations (principal); T50.90 Poisoning by, adverse effect of and underdosing of unspecified drugs, medicaments and biological substances | CPT/HCPCS: A0425; A0427 ==

== ENCOUNTER 2024-03-04 08:16 | Emergency (ER) | payer MEDICAID, SELFPAY ==
[2024-03-04 08:22] VITALS: BP 124/76; PULSE 122; RESP 14; TEMP 37; O2SAT 98; BMI 24.0
--- OUTSIDE RECORDS SUMMARY | 2024-03-04 08:23 | XMS_ITS | Clinical Summary ---
Author Name Unknown Organization [facility] Address [place], [place] [address] Care Team Providers Care Gift Shop Clerk Name Role Phone Pcp, No Primary Care Provider Unavailabl e Pcp, No Unavailable Unavailable Allergies Active Allergy Reactions Criticality Noted Date Comments Hymenoptera Allergenic Extract Edema 06/29/2014 Wasps Bupropion Hcl Hives High 09/26/2021 Serum sickness like reaction Venom-Wasp Anaphylaxis,Hives High 06/21/2020 Medications Medication Sig Dispensed Refills Start Date End Date Status norgestrel-ethinyl estradiol, 0.3-30 mg-mcg, (LO-OVRAL) 0.3-30 mg-mcg tablet Take 1 tablet by mouth once daily. 1 Packet 0 06/29/2014 Active diphenhydrAMINE (BENADRYL) 25 mg tablet Take 1-2 tablets by mouth at bedtime if needed for Sleep. 0 02/19/2015 Active guaiFENesin (MUCINEX) 600 mg Extended-Release tablet Take 1 tablet by mouth 2 times daily if needed for Expectoration. 0 02/19/2015 Active sertraline (ZOLOFT) 25 mg tabletIndications:Pa luis disorder without agoraphobia,Depressi ve disorder, not elsewhere classified Take 1 tablet by mouth every morning. 30 tablet 1 02/19/2015 Active ondansetron (ZOFRAN ODT) 4 mg disintegrating tabletIndications:No n-intractable vomiting with nausea, unspecified vomiting type Place 2 Tablets (8 mg) on the tongue every 8 hours if needed for Nausea/Vomiting. 20 Tablet 01/08/2021 Active naloxone (NARCAN) 4 mg/actuation nasal sprayIndications:Opi ate overdose, accidental or unintentional, initial encounter (HC) Inhale 1 [place] into affected nostril(s) each time if needed for Patient Diff To Arouse or Resp Rate < 8 / min. Additional doses may be given every 2 to 3 minutes until emergency medical assistance arrives. 1 box 03/22/2021 Active gabapentin (NEURONTIN) 300 mg capsule TAKE 1 CAPSULE(300 MG) BY MOUTH THREE TIMES DAILY 12/22/2022 Active Suboxone 8-2 mg sublingual film 01/23/2023 Active venlafaxine extended release (VENLAFAXINE XR, S5 Wireless,) 150 mg extended release tablet Take 150 mg by mouth. 01/15/2023 Active busPIRone 7.5 mg tablet 01/28/2023 Active hydrOXYzine HCL (ATARAX) 50 mg tablet 01/21/2023 Active propranoloL (INDERAL) 10 mg tablet 01/21/2023 Active levonorgestrel (MIRENA) 20 mcg/24 hours (8 yrs) 52 mg intrauterine device (IUD) Inject 1 Each intrauterine. Active ibuprofen (ADVIL; MOTRIN) 200 mg tablet 01/19/2023 Active EPINEPHrine (EPIPEN) 0.3 mg/0.3 mL auto-injector Inject 0.3 mg intramuscular one time if needed. 09/24/2021 Active polyethylene glycoL (MIRALAX) 17 gram/scoop powder 01/24/2023 Active Graduated Compression StockingsIndications :Bilateral lower extremity edema For personal use. Length: calf Strength: 16-20 mmHg Circumference in cm: For calf: Ankle 26 cm, Calf 39 cm, Ankle to calf length 20 cm. 1 Packet 01/29/2023 Active Active Problems Problem Noted Date Diagnosed Date Panic disorder without agoraphobia 02/19/2015 Depressive disorder, not elsewhere classified DWIGHT (generalized anxiety disorder) 02/19/2015 Adjustment disorder with mixed anxiety and depre ssed mood 07/04/2013 Family History Medical History Relation Name Comments Psychiatric illness Father Depressi on Alcoholism Mother Psychiatric illness Mother Depressi on, anxiety Relation Name Status Comments Father Alive Mother Alive Sister 1 Alive Sister 2 Alive Social History Tobacco Use Types Packs/Day Years Used Date Smoking Tobacco: Every Day Cigarettes 0.5 14.4 Started: 2009 Smokeless Tobacco: Never Tobacco Cessation:Ready to Q uit: Not Asked; Counseling Given: Not Answered Alcohol Use Standard Drinks/Week Comments No 0 (1 standard drink = 0.6 oz pur e alcohol) Social Connections Answer Date Recorded Frequency of Communication with Friends and Fami ly Not on file 01/29/2023 Sex and Gender Information Value Date Recorded Sex Assigned at Not on file Gender Identity Not on file Sexual Orientation Not on file Obstetrics History Last Filed Vital Signs Vital Sign Reading Time Taken Comments Blood Pressure 122/67 01/31/2023 6:30 PM CDT Pulse 80 01/31/2023 6:30 PM CDT Temperature 36.3 ??C (97.3 ??F) 01/31/2023 2:23 PM CD T Respiratory Rate 16 01/31/2023 6:30 PM CDT Oxygen Saturation 98% 01/31/2023 6:30 PM CDT Inhaled Oxygen Concentration - - Weight 68 kg (150 lb) 01/31/2023 2:23 PM CDT Height 165.1 cm (5' 5) 01/31/2023 2:23 PM CDT Body Mass Index 24.96 01/31/2023 2:23 PM CDT Plan of Treatment Health Maintenance Due Date Last Done Comments Pneumococcal series for age 6-64 (1 of 2 - PCV) 2003 Tdap 2008 Depression screening for age 12+ 2009 HPV series for age 9-26 (1 - 3-dose series) 2012 Tetanus booster 2017 Pap test for age 21-65 05/13/2022 05/13/2019 COVID-19 vaccine series ( season) 2023 08/01/2021, 07/10/2021 BMI (ht and wt on same day) for age 18+ 01/30/2024 0 01/29/2023 Influenza for age 9-49 06/26/2024 HIV for age 15-65 Completed 01/29/2023 Hepatitis C screening for age 18-79 Completed 01/29 Procedures Procedure Name Priority Date/Time Associated Diagnosis Comments LC HIV-1/O/2, 4TH GENERATION Routine 01/29/2023 2:00 PM CDT Bilateral lower extremity edema LC HCV ANTIBODY RFX TO QUANT PCR Routine 01/29/2023 2:00 PM CDT Bilateral lower extremity edema YARN COMBER THIN PREP PAP SCREEN IMAGED Routine 05/13/2019 12:00 PM CDT from Last 3 Months or Most Recently Relevant to Health Maintenance Results * LC HCV ANTIBODY RFX TO QUANT PCR (01/29/2023 2:00 PM CDT) Pathologist [facility] HCV Ab Non Reactive Non Reactive 02/01/2023 10:07 AM CDT [facility] ([facility]) Blood BLOOD SPECIMEN / Unknown Venipuncture / Unknown 01/29/2023 2:00 PM CDT 01/29/2023 2:02 PM CDT [facility] ([facility]) - 02/01/2023 10:07 AM CDT Performed at: ??01 - [address] ??[id number] Director Organizational: Jasbir Canales MD, Phone: ??[phone] [facility] ([facility]) [address] [place] [address], * LC HIV-1/O/2, 4TH GENERATION (01/29/2023 2:00 PM CDT) Pathologist [facility] HIV Scr 4th Gen Non Reactive Non Reactive 02/01/2023 11:07 AM CDT [facility] ([facility]) Comment: HIV Negative HIV-1/HIV-2 antibodies and HIV-1 p24 antigen were NOT detected. There is no laboratory evidence of HIV infection. Blood BLOOD SPECIMEN / Unknown Venipuncture / Unknown 01/29/2023 2:00 PM CDT 01/29/2023 2:02 PM CDT [facility] ([facility]) - 02/01/2023 11:07 AM CDT Performed at: ??01 - [facility] [address] [facility], [place], [place] ??[id number] Director Organizational: Jasbir Canales MD, Phone: ??[phone] [facility] ([facility]) [address] [place] [address], * YARN COMBER THIN PREP PAP SCREEN IMAGED (05/13/2019 12:00 PM CDT) Case Report Gynecologic Cytology Report ? Case: [id number] ? Authorizing Provider: ??Sophia Garcia PA-C ?Collected: ? 05/13/2019 1200 ? Ordering Location: ? [facility] ?Received: ?05/16/2019 0732 ? First Screen: ?Feliz Richard ? Specimen: ?YARN COMBER ThinPrep Vial Screening, Cervical/Vaginal ? 05/24/2019 12:44 PM CDT [facility] INTERPRETATION/ RESULT NEGATIVE FOR INTRAEPITHELIAL LESION OR MALIGNANCY (NIL) (none) 05/24/2019 12:44 PM CDT [facility] IMEN ADEQUACY Satisfactory for evaluation No endocervical component seen in a patient 05/24/2019 12:44 PM CDT [facility] HPV REQUEST HPV if ASCUS 05/24/2019 12:44 PM CDT [facility] Date of LMP 03/12/2019 05/24/2019 12:44 PM CDT [facility] Last Pap Result First Pap/Unknown 12:44 PM CDT [facility] Menstrual Status 05/24/2019 12:44 PM CDT [facility] Automated Review Successful 05/24/2019 12:44 PM CDT [facility] Comment:Specimen processed s uccessfully by automated heating and ventilating drafter device, ThinPrep Imaging System, [employer] Note The pap test is a screening technique, not a diagnostic procedure. ??It is used primarily to screen for squamous cancers and precursor lesions. ??Published studies have shown that it is subject to both false negative and false positive results. ??The pap test should not be used as the sole means to diagnose or exclude pre-malignant and malignant lesions. Cytology is screened and interpreted at [facility] - [address], [place] [address] and [facility] - [address]; [place] [address] and [facility] - [address]; [place] [address] and [facility] [address]; [place] [address] 05/24/2019 12:44 PM CDT [facility] Other (Cervical/Vagina l) 05/13/2019 12:00 PM CDT 05/16/2019 7:32 AM CDT January L Radha [facility] [address] [place] [address], [place] from Last 3 Months or Most Recently Relevant to Health Maintenance Advance Directives * Full Code (Latest Code Status on File) Date Activated Date Inactivated Comments 02/17/2015 8:55 PM 02/19/2015 4:32 PM Care Teams Gift Shop Clerk Relationship Specialty Start Date End Date Pcp, No . PCP - General 06/28/14 Pcp, No . 06/28/14
--- OUTSIDE RECORDS SUMMARY | 2024-03-04 08:24 | XMS_ITS | Encounter Summary ---
Author Name Unknown Organization [facility] Address [address] [place] [address] Care Team Providers Care Regulatory Law Specialist Name Role Phone Harjeet Carvajal M.B.B.S. Primary Care Provider [phone] Reason for Referral * Outpatient (Routine) - Authorized Specialty Diagnoses / Procedures Referred By Claudy t Referred To Contact Family Medicine Harjeet Carvajal M.B.B.S. [address] [place] [id number] [facility] Referral ID Status Reason Start Date Expiration Date V isits Requested Visits Authorized [id number] Authorized 02/02/2024 08/03/2025 1 1 Encounter Details Date Type Department Care Team (Late st Contact Info) Description 02/02/2024 Orders Only [facility] PCP TH MNT Harjeet Carvajal, M.B.B.S. [address] [place] [place] [id number] Social History Tobacco Use Types Packs/Day Years Used Date Smoking Tobacco: Some Days Cigarettes Smokeless Tobacco: Never Comments:Smokes cigarettes e very once in awhile, vaping daily Alcohol Use Standard Drinks/Week Comments Not Currently 0 (1 standard drink = 0.6 oz pur e alcohol) Humiliation, Afraid, Rape, and Kick questionnair e Answer Date Recorded Within the last year, have y ou been afraid of your partner or ex-partner? No 04/21/2022 Within the last year, have y ou been humiliated or emotionally abused in other ways by your partner or ex-partner? No Within the last year, have y ou been kicked, hit, slapped, or otherwise physically hurt by your partner or ex-partner? No 04/21/2022 Within the last year, have y ou been raped or forced to have any kind of sexual activity by your partner or ex-partner? No 04/21/2022 Social Connection and Isolation Panel [NHANES] A nswer Date Recorded In a typical week, how many times do you talk on the phone with family, friends, or neighbors? Three times a week 04/21/20 How often do you get togethe r with friends or relatives? Patient declined 04/21/2022 How often do you attend chur ch or orthodoxy services? Never 04/21/2022 Do you belong to any clubs o r organizations such as shinto groups, unions, fraternal or athletic groups, or school groups? Yes 04/21/2022 How often do you attend meet ings of the clubs or organizations you belong to? 1 to 4 times per year 04/21/2022 Are you , , di vorced, , never , or living with a partner? Living with partner 04/21/2022 AUDIT-C Answer Date Recorded Q1: How often do you have a drink containing alc ohol? Never 04/21/2022 Average Number of Drinks Not on file 022 Frequency of Binge Drinking Not on file 03/27 Overall Financial Resource Strain (CARDIA) Answe r Date Recorded How hard is it for you to pa y for the very basics like food, housing, medical care, and heating? Hard 04/21/2022 PHQ-2 Answer Date Recorded PHQ-2 Score 2 06/19/2022 [facility] Occupat ional Health - Occupational Stress Questionnaire Answer Date Recorded Do you feel stress - tense, restless, nervous, or anxious, or unable to sleep at night because your mind is troubled all the time - these days? Very much 04/21/2022 Exercise Vital Sign Answer Date Recorde d On average, how many days pe r week do you engage in moderate to strenuous exercise (like a brisk walk)? 6 days 04/21/2022 On average, how many minutes do you engage in exercise at this level? 60 min 04/21/2022 Hunger Vital Sign Answer Date Recorded Within the past 12 months, y ou worried that your food would run out before you got the money to buy more. Sometimes true Within the past 12 months, t he food you bought just didn't last and you didn't have money to get more. Never true PRAPARE - Transportation Answer Date Re corded In the past 12 months, has l ack of transportation kept you from medical appointments or from getting medications? Yes 03/27 In the past 12 months, has l ack of transportation kept you from meetings, work, or from getting things needed for daily living? Yes 04/21/2022 Housing Stability Vital Sign Answer Dutch e Recorded In the last 12 months, was t here a time when you were not able to pay the mortgage or rent on time? Yes 04/21/2022 In the last 12 months, how many places have you lived? 4 04/21/2022 In the last 12 months, was t here a time when you did not have a steady place to sleep or slept in a usp (including now)? Yes 04/21/2022 Depression Answer Date Recor ded PHQ-9 Total Score (max 27) 14 06/19 Nutrition Answer Date Recorded Nutrition: EVOO Fat Source No 04/21 On average, how many serving s of fruits and vegetables do you eat per day (serving size is equal to 1 cup or approximately the size of a tennis ball)? 0-1 04/21/2022 Dental Answer Date Recorded Dental: Regular Dentist No 12/17/19 21 Employment Answer Date Recorded Employment status Employed and actively working without restrictions 04/21/2022 Education Answer Date Recorded What is the highest level of school you have completed or the highest degree you have received? 12th grade 09/12/2020 Sex and Gender Information Value Date Recorded Sex Assigned at Female 09/12/2020 9:18 AM ROOTER OPERATOR Gender Identity Female 09/12/2020 9:18 AM ROOTER OPERATOR Sexual Orientation Choose not to disclose 2019 9:18 AM ROOTER OPERATOR documented as of this encounter Plan of Treatment Scheduled Referrals Name Type Priority Associated Diagnoses Orde r Schedule Family Medicine office visit (clinic) Outpatient Referral Routine Expected: 02/16/2024, Expires: 07/31/2024 documented as of this encounter Visit Diagnoses Not on filedocumented in this encounter Additional Health Concerns Assessment Noted Time PHQ-9 Depression Total Score: 14 022 10:34 AM CDT documented as of this encounter Care Teams Regulatory Law Specialist Relationship Specialty Start Date End Date Harjeet Carvajal M.B.B.S. [address] [place] [id number] PCP - General Family Medicine 08/22/20 documented as of this encounter
--- OUTSIDE RECORDS SUMMARY | 2024-03-04 08:24 | XMS_ITS | Clinical Summary ---
Author Name Unknown Organization [facility] Address [address] [place] [address] Care Team Providers Care Restaurant Service Manager Name Role Phone Harjeet Carvajal Primary Care Provider [phone] Source Comments Patient records contain information from all sites at [facility]. For routine questions regarding patient records, call [phone] during business hours, M-F 8:00 AM - 5:00 PM Central Time. Record requests for emergency care only can be directed to [phone] at any time.[facility] Allergies Active Allergy Reactions Criticality Noted Date Comments Hymenoptera Allergenic Extract Hives (Reselect Reaction) 06/29/2014 Wasps Venom-Wasp Anaphylaxis,Hives (Reselect Reaction) 06/21/2020 Bupropion Hcl Hives (Reselect Reaction) High 09/26/2021 Serum sickness like reaction Medications Medication Sig Dispensed Refills Start Date End Date Status acetaminophen (TYLENOL) 325 mg tablet Take 2 tablets (650 mg total) by mouth every 4 (four) hours as needed for headaches. 30 tablet 08/24/2020 Active multivitamin tablet Take 1 tablet by mouth daily. Active cholecalciferol, vitamin D3, 25 mcg (1,000 Unit) tablet Take 25 mcg by mouth daily. Active thiamine (VITAMIN B1) 100 mg tablet Take 100 mg by mouth daily. Unable to get to store, has not started yet Active EPINEPHrine 0.3 mg/0.3 mL injection syringe Inject 0.3 mL (0.3 mg total) intramuscularly as needed for anaphylaxis. Inject into the thigh. 1 each 09/24/2021 Active acetaminophen-caf feine (EXCEDRIN_TENSION _HEADACHE) 500-65 mg per tablet Take 2 tablets by mouth every 6 (six) hours as needed for pain. Active levonorgestreL (MIRENA) 20 mcg/24 hours (7 yrs) 52 mg IUD 1 each by intrauterine route continuously. Active Narcan 4 mg/actuation nasal spray Administer 1 spray (4 mg total) into one nostril once for 1 dose. Repeat with second device in other nostril after 2 to 3 minutes if minimal response. 1 each 01/02/2022 Active hydrOXYzine (ATARAX) 50 mg tabletIndications :Anxiety Generalized Disorder Take 1 tablet (50 mg total) by mouth 2 (two) times a day as needed for itching or anxiety. bid prn 60 tablet 3 02/07/2022 Active lamoTRIgine (LaMICtaL) 25 mg tablet Take 1 tablet (25 mg total) by mouth daily for 14 days, THEN 1 tablet (25 mg total) 2 (two) times a day for 14 days. 42 tablet 06/19/2022 Active ferrous sulfate 325 mg (65 mg iron) DR tablet Take 1 tablet (65 mg of iron total) by mouth daily. 30 tablet 1 06/19/2022 Active propranoloL (INDERAL) 10 mg tabletIndications :Anxiety Generalized Disorder Take 1 tablet (10 mg total) by mouth 2 (two) times a day as needed (anxiety). 30 tablet 2 06/19/2022 Active gabapentin (NEURONTIN) 300 mg capsuleIndication s:Restless Leg Syndrome,Polyarth ralgia TAKE 1 CAPSULE(300 MG) BY MOUTH THREE TIMES DAILY 90 capsule 3 12/22/2022 Active venlafaxine (EFFEXOR) 150 mg 24 hr tablet TAKE 1 TABLET(150 MG) BY MOUTH DAILY WITH BREAKFAST 30 tablet 04/17/2023 Active Active Problems Problem Noted Date Diagnosed Date Depression Major 06/19/2022 Polyarthralgia 09/30/2021 Rash Multiple Site 09/21/2021 Pruritus 09/21/2021 Urticaria Acute 09/21/2021 Dyspnea 08/19/2020 Opioid Moderate Or Severe Us e Disorder (Dependence) Uncomplicated 08/15/2020 Insomnia 06/21/2020 Anxiety Generalized Disorder 06/07/2020 Restless Leg Syndrome 06/07/2020 Nicotine Dependence Cigarettes 06/07/2020 Gastroesophageal Reflux Disease 06/07/2020 Depressive Disorder Other Stimulant Moderate Or Severe Use Disorder (Dependence) Uncomplicated Resolved Problems Problem Noted Date Diagnosed Date Resolved Date Overdose Drug Personal History 03/27/2021 04/22/2022 Overview: History of overdoses with opiates. Recent visit, 03/22/21, resuscitated with Narcan spray x2 03/27/21 Acute Respiratory Failure With Hypoxia 08/19/2020 09/12/2020 Dependence Polysubstance Remission 08/15/2020 04/22/2022 Overview: Use of opiates, her [place], Percocet oxycodone, cocaine and methamphetamine, Kratom, MJ and alcohol Rehab for the past 2 months at [facility] 08/15/20 Depression Major Recurrent Moderate 06/07/2020 04/22/2022 Moderate Or Severe Use Disor [place] (Dependence) Drug Opioid Remission 06/07/2020 04/22/2022 Last Assessment & Plan: Use of heroin for 3 years, history of over dose earlier this year at [facility] Currently at the [facility] program. 08/15/20 Encounters Date Type Department Care Team Description 02/02/2024 Orders Only [facility] P[facility] MNT Harjeet Carvajal M.B.B.S. from Last 3 Months Immunizations Name Administration Dates Next Due 9vHPV 04/16/2021 DTaP (Infanrix, Tripedia) 08/09/2001 H1N1 Inj 12/26/2009 HepB Pediatric/Adolescent 08/09/2001 Hib (HbOC) (discontinued) 08/09/2001 IPV 08/09/2001 Influenza, Injectable, Mdck, Quadrivalent 2020 MMR 08/09/2001 PPSV23 04/16/2021 SARS-COV-2 (COVID-19) - PFIZ ER (Discontinued)(12 years or older) 08/01/2021,07/10/2021 Tdap 10/13/2019,05/20/2018 influenza LAIV (Nasal) (2 years through 49 years ) 10/17/2013 influenza vaccine quad (FLUZ ONE/FLUARIX) (6 months and older)(PF) 08/04/2019 Family History Medical History Relation Name Comments Anxiety depression Father lee Rheum arthritis Father lee Alcoholic Father's Brother Alcoholic Maternal Grandfather No Known Problems Maternal Grandmother Alcoholic Mother miguel Anxiety depression Mother miguel Borderline personality disorder Mother miguel No Known Problems Paternal Grandfather No Known Problems Paternal Grandmother No Known Problems Sister 1 No Known Problems Sister 2 Relation Name Status Comments Father lee Alive Father's Brother Alive Maternal Grandfather Maternal Grandmother Mother miguel Alive Paternal Grandfather Paternal Grandmother Sister 1 Alive Sister 2 Alive Social History Tobacco Use Types Packs/Day Years Used Date Smoking Tobacco: Some Days Cigarettes Smokeless Tobacco: Never Tobacco Cessation:Ready to Q uit: Not Asked; Counseling Given: Not Answered Comments:Smokes cigarettes every once in awhile, vaping daily Alcohol Use [...] often do you attend chur ch or christianity services? Never 04/21/2022 Do you belong to any clubs o r organizations such as jew groups, unions, fraternal or athletic groups, or [...] Answer Date Recorded PHQ-2 Score 2 06/19/2022 [facility] of Occupat ional Health - Occupational Stress [...] place to sleep or slept in a jail (including now)? Yes 04/21/2022 Depression Answer Date [...] Sex Assigned at Female 09/12/2020 9:18 AM FUND DEVELOPMENT MANAGER Gender Identity Female 09/12/2020 9:18 AM FUND DEVELOPMENT MANAGER Sexual Orientation Choose not to disclose 2019 9:18 AM FUND DEVELOPMENT MANAGER Last Filed Vital Signs Vital Sign Reading Time Taken Comments Blood Pressure 107/71 02/25/2022 11:31 AM CDT Pulse 98 02/25/2022 11:31 AM CDT Temperature 37.1 ??C (98.8 ??F) 11/04/2021 1:23 PM CS T Respiratory Rate 20 11/04/2021 1:23 PM FUND DEVELOPMENT MANAGER Oxygen Saturation 98% 11/04/2021 1:23 PM FUND DEVELOPMENT MANAGER Inhaled Oxygen Concentration - - Weight 73.7 kg (162 lb 6.4 oz) 02/25/2022 11:31 AM CDT Height 162.6 cm (5' 4) 09/26/2021 10:57 AM FUND DEVELOPMENT MANAGER Body Mass Index 27.88 09/26/2021 10:57 AM FUND DEVELOPMENT MANAGER Plan of Treatment Health Maintenance Due Date Last Done Comments Hepatitis B Vaccines (2 of 3 - 3-dose series) 09/06/2001 08/09/2001 Hepatitis A Vaccines (1 of 2 - Risk 2-dose series) 2016 HPV Vaccines (2 - 3-dose series) 05/14/2021 04/16/20 21 Tobacco Cessation counseling 08/27/2021 08/27/2020 Pneumococcal vaccine (0-64 y ears) (2 of 2 - PCV) 04/16/2022 04/16/2021 Cervical Cancer Screening 05/26/20222018 (Performed elsewhere), 05/13/2019 Depression Monitoring (PHQ-9) 10/19/2022 06/19/2022 COVID-19 Vaccine (3 - 2022-2 4 season) 2023 08/01/2021, 07/10/2021 Influenza Vaccine (#1) 2023 , 08/04/2019, 10/17/2013, Additional history exists DTaP,Tdap,and Td Vaccines (4 - Td or Tdap) 10/13/2029 10/13/2019, 05/20/2018, 08/09/2001 Chlamydia and Gonorrhea Screening Discontinued 020 Glucose Test for Med Monitoring Discontinued 01/29/2023, 09/24/2021, 2021, Additional history exists Medical Devices Implanted Type Area Polysomnography Technician Device Identifier Shelf Expiration Date Model / Serial / Lot Iud Mrn Lvngstr 52mg- 0 Implanted: (Quantity not on file) Intrauterine Device Cervix Bandar [id number] / / Procedures Procedure Name Priority Date/Time Associated Diagnosis Comments EXTI CHEM 8 WITH HCT, I-STAT, POCT, B Routine 01/29/2023 2:09 PM CDT CHLAMYDIA/GONORRHOE AE AMPLIFIED RNA Routine 07/23/2020 9:40 AM CDT Dysmenorrhea from Last 3 Months or Most Recently Relevant to Health Maintenance Results * Chlamydia / Gonorrhoeae Amplified RNA (07/23/2020 9:40 AM CDT) Source Swab, Vagina 07/23/2020 7:14 PM CDT MKTO Chlamydia trachomatis amplified RNA Negative Negative 07/23/2020 7:14 PM CDT MKTO Source Swab, Vagina 07/23/2020 7:14 PM CDT MKTO Neisseria gonorrhoeae amplified RNA Negative Negative 07/23/2020 7:14 PM CDT [facility]TO Varies (Vagina) 07/23/2020 9 :40 AM CDT 07/23/2020 11:09 AM CDT Susan Rogers APRN, C.N.P., M.S.N. [facility] - GENERAL ORDERABLES [facility] [address] [place] [address], [place] [facility] [place] [address] [place] [address] from Last 3 Months or Most Recently Relevant to Health Maintenance Advance Directives For more information, please contact: [phone] * Full Code (Latest Code Status on File) Date Activated Date Inactivated Comments 09/21/2021 5:45 PM 09/24/2021 4:25 PM Question Answer Comments Full Code: Discussed * Full Code Date Activated Date Inactivated Comments 08/19/2020 3:46 PM 08/24/2020 8:13 PM Question Answer Comments Full Code: Discussed Care Teams Restaurant Service Manager Relationship Specialty Start Date End Date Harjeet Carvajal M.B.B.S. [address] [place] [address] PCP - General Family Medicine 08/22/20
--- OUTSIDE RECORDS SUMMARY | 2024-03-04 08:24 | XMS_ITS ---
Author Name Unknown Organization [facility] Address [address] [place] [address] Care Team Providers Care Mill Washer Name Role Phone Unavailable Unavailable Unavailable Surgery Details Not on file Complications Check Surgery Details section. Procedure Estimated Blood Loss Check Surgery Details section. Procedure Findings Check Surgery Details section. Procedure Specimens Taken Check Surgery Details section.
--- OUTSIDE RECORDS SUMMARY | 2024-03-04 08:24 | XMS_ITS | Referral Summary ---
Author Name Unknown Organization [facility] Address [address] [place] [address] Care Team Providers Care Controlled Area Checker Name Role Phone Harjeet Carvajal M.B.B.S. Primary Care Provider Source Comments Patient records contain information from all sites at [facility]. For routine questions regarding patient records, call [phone] during business hours, M-F 8:00 AM - 5:00 PM Central Time. Record requests for emergency care only can be directed to [phone] at any time.[facility] Encounters Date Type Department Care Team Description 02/02/2024 Orders Only [facility] P[facility] MNT Harjeet Carvajal, M.B.B.S. from Last 3 Months Allergies Active Allergy Reactions Criticality Noted Date [...] Rehab for the past 2 months at [facility] 08/15/20 Depression Major Recurrent Moderate 06/07/2020 04/22/2022 Moderate Or Severe Use Disor [place] (Dependence) Drug Opioid Remission 06/07/2020 04/22/2022 Last Assessment & Plan: Use of heroin for 3 years, history of over dose earlier this year at [facility] Currently at the [facility] program. 08/15/20 Immunizations Name Administration Dates Next Due 9vHPV [...] (FLUZ ONE/FLUARIX) (6 months and older)(PF) 08/04/2019 Social History Tobacco Use Types Packs/Day Years [...] or neighbors? Three times a week 04/21/20 22 How often do you get togethe r with friends or relatives? Patient declined 04/21/2022 How often do you attend chur ch or voodoo services? Never 04/21/2022 Do you belong to any clubs o r organizations such as synagogue groups, unions, fraternal or athletic groups, or [...] Answer Date Recorded PHQ-2 Score 2 06/19/2022 [facility] of Occupat ional Health - Occupational Stress [...] place to sleep or slept in a [place] facility (including now)? Yes 04/21/2022 Depression Answer Date [...] Sex Assigned at Female 09/12/2020 9:18 AM TELECASTING TECHNICIAN Gender Identity Female 09/12/2020 9:18 AM TELECASTING TECHNICIAN Sexual Orientation Choose not to disclose 2019 9:18 AM TELECASTING TECHNICIAN Last Filed Vital Signs Vital Sign Reading Time Taken Comments Blood Pressure 107/71 02/25/2022 11:31 AM CDT Pulse 98 02/25/2022 11:31 AM CDT Temperature 37.1 ??C (98.8 ??F) 11/04/2021 1:23 PM CS T Respiratory Rate 20 11/04/2021 1:23 PM TELECASTING TECHNICIAN Oxygen Saturation 98% 11/04/2021 1:23 PM TELECASTING TECHNICIAN Inhaled Oxygen Concentration - - Weight 73.7 kg (162 lb 6.4 oz) 02/25/2022 11:31 AM CDT Height 162.6 cm (5' 4) 09/26/2021 10:57 AM TELECASTING TECHNICIAN Body Mass Index 27.88 09/26/2021 10:57 AM TELECASTING TECHNICIAN Plan of Treatment Not on file Medical Devices Implanted Type Area Picc Nurse Device Identifier Shelf Expiration Date Model / Serial / Lot Iud Mrn Lvngstr 52mg- 0 Implanted: (Quantity not on file) Intrauterine Device Cervix Bandar [id number] / / Procedures Procedure Name Priority [...] :40 AM CDT 07/23/2020 11:09 AM CDT Ruchi Noriega APRNNHimanshu., M.S.N. [facility] - GENERAL ORDERABLES [facility] [address] [place] [address], [place] [facility] [place] [address] [place] [address] from Last 3 Months or Most Recently Relevant to Health Maintenance Advance Directives For more information, please contact: [phone] * Full Code (Latest Code Status on File) Date Activated Date Inactivated Comments 09/21/2021 5:45 PM 09/24/2021 4:25 PM Question Answer Comments Full Code: Discussed * Full Code Date Activated Date Inactivated Comments 08/19/2020 3:46 PM 08/24/2020 8:13 PM Question Answer Comments Full Code: Discussed Care Teams Controlled Area Checker Relationship Specialty Start Date End Date Harjeet Carvajal M.B.B.S. [address] [place] [id number] PCP - General Family Medicine 08/22/20
--- NOTE | 2024-03-04 08:28 | ED_ITS ---
HPI - Ear Problem General Time Seen by Provider: 08:28 Date Seen: 03/04/24 Chief complaint: Ear/Nose/Throat Problem Stated complaint: tick in her ear Time Seen by Provider: 03/04/24 08:27 Source: patient and RN notes reviewed Mode of arrival: ambulatory Limitations: no limitations History of Present Illness HPI Narrative: This 28 year old female is coming in with a tick in her right ear. She had ear pain just prior to arrival, her dad looked in her ear twice and saw a tick. She states he sought poke its head out. She states that she is freaking out about this. She is not endorsing any further ear pain. She states she did start screaming after he told her he saw the tick. He tried some type of suction thing on her ear that he has at home but reportedly did not work. MD Complaint: foreign body Treatment prior to arrival: none Related Data Home Medications Medication Instructions Recorded Confirmed gabapentin 300 mg capsule 300 mg PO TID 09/08/22 12/08/22 venlafaxine 150 mg 150 mg PO DAILY 09/08/22 12/07/22 capsule,extended release 24 hr vitamin A 2,500 unit-vit C 100 1 cap PO DAILY 12/08/22 12/08/22 mg-biotin 2,500 rgp-zjjn-lulama capsule (Xaza-Lcke-Jwca (vit A,B-pioqum-Lx-Cu)) Previous Rx's Medication Instructions Recorded amoxicillin 875 mg-potassium 1 tab PO BID #6 tabs 12/10/22 clavulanate 125 mg tablet propranolol 20 mg tablet 10 mg (1/2 x 20 mg) PO BID 30 days 12/10/22 #15 tabs omeprazole 40 mg capsule,delayed 40 mg PO DAILY #30 caps 04/13/23 release Allergies Allergy/AdvReac Type Severity Reaction Status Date / Time bupropion [From Wellbutrin] Allergy Intermediate Hives Verified 12/15/22 11:12 morphine Allergy Intermediate Abdominal Verified 12/15/22 11:12 Pain Review of Systems Narrative: As per HPI. PFS PFS Medical History Postoperative pain ?G89.18 - Other acute postprocedural pain (ICD-10) History of panic disorder ?Z86.59 - Personal history of other mental and behavioral disorders (ICD-10) Recurrent subluxation of patella, right knee ?M22.11 - Recurrent subluxation of patella, right knee (ICD-10) (normal spontaneous vaginal delivery) ?O80 - Encounter for full-term uncomplicated delivery (ICD-10) Migraine headache with aura ?G43.109 - Migraine with aura, not intractable, without status migrainosus (ICD-10) Opioid abuse ?F11.10 - Opioid abuse, uncomplicated (ICD-10) Methamphetamine dependence, episodic ?F15.20 - Other stimulant dependence, uncomplicated (ICD-10) History of attempted suicide ?Z91.51 - Personal history of suicidal behavior (ICD-10) Major depressive disorder ?F32.9 - Major depressive disorder, single episode, unspecified (ICD-10) Anxiety disorder ?F41.9 - Anxiety disorder, unspecified (ICD-10) Surgical History History of tonsillectomy and adenoidectomy ?Z90.89 - Acquired absence of other organs (ICD-10) History of tonsillectomy ?Z90.89 - Acquired absence of other organs (ICD-10) Status post tonsillectomy and adenoidectomy ?Z90.89 - Acquired absence of other organs (ICD-10) History of wisdom tooth extraction ?K08.409 - Partial loss of teeth, unspecified cause, unspecified class (ICD- 10) Social History Highest level of school completed/degree received: high school graduate Smoking Status: Unknown if ever smoked Non-prescribed substance use: other Non-prescribed substance use details: Update 04/10/23: Pt not currently using Update 12/07/22: pt relapsed, taking Perc 30s Former IV drug user, currently taking suboxone service: No Exam Const: Vital Signs, click to edit/add: Vital Signs - 24 hr 03/04/24 08:22 Temperature 98.6 F Pulse Rate [Pulse Oximeter] 122 H Respiratory Rate 14 Blood Pressure [Ri ght Upper Arm] 124/76 Pulse Oximetry 98 Oxygen Delivery Me thod Room Air Patient is alert but anxious, no apparent distress. External ear structures bilaterally normal. Both tympanic membranes normal. There is absolutely no evidence of any tick or foreign body in either ear canal. Both nursing staff looked before me, I checked her right ear twice, left ear is normal too. There is absolutely no evidence of any retained foreign body. Documenting provider has reviewed patient's vital signs: yes Course Vital Signs Vital signs: Initial Vital Signs Temperature 98.6 F 03/04/24 08:22 Temperature Source Temporal Artery Scan 03/04/24 08:22 Pulse Rate 122 H 03/04/24 08:22 Pulse Rhythm Regular 03/04/24 08:22 Respiratory Rate 14 03/04/24 08:22 Blood Pressure 124/76 03/04/24 08:22 Blood Pressure Mean 92 03/04/24 08:22 Blood Pressure Position Sitting 03/04/24 08:22 Pulse Oximetry 98 03/04/24 08:22 Oxygen Delivery Method Room Air 03/04/24 08:22 Vital Signs Temperature 98.6 F 03/04/24 08:22 Pulse Rate 122 H 03/04/24 08:22 Respiratory Rate 14 03/04/24 08:22 Blood Pressure 124/76 03/04/24 08:22 Pulse Oximetry 98 03/04/24 08:22 Oxygen Delivery Method Room Air 03/04/24 08:22 Temperature 98.6 F 03/04/24 08:22 Pulse Rate 122 H 03/04/24 08:22 Respiratory Rate 14 03/04/24 08:22 Blood Pressure 124/76 03/04/24 08:22 Pulse Oximetry 98 03/04/24 08:22 Oxygen Delivery Method Room Air 03/04/24 08:22 Discharge Plan Discharge Clinical Impression: Acute otalgia Qualifiers: Laterality: right Qualified Code(s): H92.01 - Otalgia, right ear Patient Disposition: Home, Self-Care Condition: Stable Instructions: Earache (ED) Additional Instructions: There is no evidence of any residual foreign body, no evidence of any tick in your ear at this time. If you should have further ear pain, please have your ear we evaluated. The ear and it is structures all look perfectly normal at this time. Activity Level: Activity as Tolerated Prescriptions: No Action gabapentin 300 mg capsule 300 mg PO TID venlafaxine 150 mg capsule,extended release 24hr 150 mg PO DAILY Dssb-Hego-Jllq(vit A,C-biotin) 2,500 unit-100 mg-2,500 mcg capsule 1 cap PO DAILY propranolol 20 mg Tablet 10 mg PO BID 30 Days Qty: 15 0RF amoxicillin-pot clavulanate 875-125 mg tablet 1 tab PO BID Qty: 6 0RF omeprazole 40 mg capsule,delayed release(DR/EC) 40 mg PO DAILY Qty: 30 0RF Follow Up/Referrals: Chirag Mckenna MD [Primary Care Provider] - Stand Alone Forms: MyHealth Info Instructions
== END 2024-03-04 08:45 | disposition home or self-care (01) ==
LOC: ED 08:40
PROVIDERS: Emergency Provider Family Medicine
DX: H92.01 Otalgia, right ear (principal)
CPT/HCPCS: 99282; 99283

== ENCOUNTER 2025-04-13 13:42 | Emergency (ER) | payer MEDICAID, SELFPAY ==
--- OUTSIDE RECORDS SUMMARY | 2014-01-31 07:09 | XMS_ITS | Continuity of Care Document ---
Author Organization [facility] Address [address] [address] [place] [address] Phone Care Team Providers Care Staff Veterinarian Name Role Phone Unavailable Unavailable Unavailable Medications Medication Instructions Dosage Effective Dates (start - stop) Status Comments melatonin 3 mg tablet take 2 Tablet by Oral route every bedtime 2 Tablet - Active Celexa 20 mg tablet take 1 tablet (20MG) by oral route every day 20 MG - Active ZOFRAN ODT 4 mg disintegrating tablet take 1 tablet (4MG) by ORAL route every 6 hours for [address] on top of the tongue where it will dissolve, then swallow 4 MG - Active omeprazole 20 mg capsule,delayed release take 1 capsule (20MG) by ORAL route 2 times every day 20 MG - Active Advil 200 mg tablet take 1 tablet (200MG) by ORAL route every 6 hours as needed 200 MG - Active Procedures Procedure Date Colonoscopy Flex; W/bx /mx Ugi Endo; W/bx /mx Level Iv-surg Path Gross/micro 14 Offic/outpt E&m Estab Mod-hi 2 14 Offic Cons New/estab Mod Routine Serum Collection Advance Directives Directive Yes / No Effective Date File Name No Information Encounters Encounter Description Practice Location Reason(s) For Visit Diagnoses Date Provider Providers Copied on Encounter [facility], [address] [address], [place], [id number], [place] tel:[phone] Pediatric [facility] No Information 4 No Information [facility], [address] [address], [place], [id number], [place] tel:[phone] [facility] Abd Pain GeneralizedAbd Pain GeneralizedAbd Pain Generalized Dec- 0 4 No Information Offic/outpt E&m Estab Mod-hi 2 [facility], [address] [address], [place], [id number], [place] tel:[phone] [facility] RUQ PainRLQ Pain Feb 4 No Information Referring Provider: Jose Miguel Logan MD L, [address] [place], [address]. tel:[phone] Offic Cons New/estab Mod [facility], [address] [address], [place], [id number], [place] tel:[phone] Pediatric [facility] Abd Pain GeneralizedDiarr hea 3 Lisseth LEMUS Ezra. [address] [facility], [facility] [address], [place], [place], [id number], [place]. tel:[phone] Referring Provider: Colin EDWARDS, [address] [place], [address]. tel:[phone] Family History Family Member Type Diagnosis Age At Onset First degree family history Problem (finding) No Family history of No history of Colon Polyps First degree family history Problem (finding) No histo ry of Crohn's First degree family history Problem (finding) No history of Colon Rectal Cancer First degree family history Problem (finding) No history of Ulcerative Colitis Paternal grandfather Problem (finding) malignant neopl asm of lung First degree family history Problem (finding) Thyroid disorder Payers Payer name Insurance type Covered libertarian ID [employer] [place] [id number] Social History Type Description Quantity Date Captured Comments Sex Female Smoking Status No Information Chief Complaint And Reason For Visit No Information Reason For Referral Reason For Referral No Information History Of Present Illness Encounter Date Complaint History Of Prese nt Illness No Information Functional Status Date Functional Assessmen t No Information Instructions Date Instruction Additional Infor mation No Information Assessments Type Assessment Date No Information Patient Care Teams Name Effective Dates (start - stop) Status Members No Information
--- OUTSIDE RECORDS SUMMARY | 2014-01-31 07:09 | XMS_ITS | Continuity of Care Document ---
Author Organization [facility] Address [address] [address] [place] [address] Phone Care Team Providers Care Rock Climbing Team Member Name Role Phone Unavailable Unavailable Unavailable Medications [...] Encounter [facility], [address] [address], [place], [id number], [place] tel:[phone] Pediatric Clinic No Information 4 No Information [facility], [address] [address], [place], [id number], [place] tel:[phone] [facility] Abd Pain GeneralizedAbd Pain GeneralizedAbd Pain Generalized Dec- 0 4 No Information Offic/outpt E&m Estab Mod-hi 2 [facility], [address] [address], [place], [id number], [place] tel:[phone] Pediatric Clinic RUQ PainRLQ Pain Feb 4 No Information Referring Provider: Jose Miguel Logan MD L, [address] [place], [address]. tel:[phone] Offic Cons New/estab Mod [facility], [address] [address], [place], [id number], [place] tel:[phone] Pediatric Clinic Abd Pain GeneralizedDiarr hea 3 Lisseth LEMUS Ezra. [address] [facility], [facility] [address], [place], [place], [id number], [place]. tel:[phone] Referring Provider: Colin EDWARDS, [address] [place], [address]. tel:[phone] Family History Family Member Type Diagnosis Age [...] disorder Payers Payer name Insurance type Covered constitution party ID [employer] [place] PPO [place] [id number] Social History Type Description Quantity Date Captured [...]
--- OUTSIDE RECORDS SUMMARY | 2025-04-13 13:45 | XMS_ITS | Clinical Summary ---
[facility] Address [address] [place] [address] Care Team Providers Care Water Valve Mechanic Name Role Phone Found, No Pcp MD Primary Care Provider Unavailab le Source Comments You are receiving this document as you are listed as the primary care provider,follow-up provider, or the patient has been referred to you for consultation.This is in compliance with the Medicare andMedicaid EHR Incentive Program,which states Providers who transition their patient to another setting of careor provider of care or refers their patient to another provider of care shouldprovide summary care record for each transition of care or referral. [facility] Allergies Active Allergy Reactions Criticality Noted Date Comments Bupropion Hives High 09/26/2021 Serum sickness like reaction Hymenoptera Venom Preparations Edema,generalized 06/29/2014 [facility] Comment: Wasps Medications * This document contains information received from the source organization and may not represent a complete record from that organization. levonorgestrel (MIRENA) 20 MCG/DAY IUD 1 Each by Intrauterine route once. Active naloxone (NARCAN) 4 MG/0.1ML nasal spray Place 1 [place] (4 mg) into one nostril as needed (for suspected overdose). Call 911. Repeat in opposite nostril in 3 minutes if no or minimal response. 2 Each 01/19/2024 10:27 AM CDT 4 Active buprenorphine-n aloxone (SUBOXONE) 8-[address] 1 Film under tongue daily. 4 Active buprenorphine-n aloxone (SUBOXONE) 2-0.[address] 1-2 Film under tongue every 4 hours as needed for Other (COWS > 10 use 1 film; COWS > 15 use 2 films). Active Active Problems Problem Noted Date Diagnosed Date Opioid use disorder 01/14/2024 Acute systolic congestive heart failure 01/13/20 Acute encephalopathy 01/13/2024 Toxic encephalopathy 01/13/2024 Suicide attempt by beta-adrenergic antagonist ov erdose 01/13/2024 Cardiac shock syndrome 01/13/2024 Methamphetamine use disorder, severe 09/28/2023 Polyarthralgia 09/30/2021 Insomnia 06/21/2020 Gastroesophageal reflux disease 06/07/2020 Tobacco dependence due to cigarettes 06/07/2020 Restless leg syndrome 06/07/2020 Major depressive disorder 02/19/2015 Resolved Problems Problem Noted Date Diagnosed Date Resolved Date Acute respiratory failure wi th hypoxia and hypercapnia 01/13/2024 04/03/2024 Opioid dependence 08/15/2020 01/17/2024 DWIGHT (generalized anxiety disorder) 02/19/2015 01/17/2024 Panic disorder without agoraphobia 02/19/2015 01/17/2024 Immunizations Immunization Administration Dates Next Due 9vHPV (Gardasil 9) 04/16/2021 DTaP 08/09/2001 HepB Ped/Adol (0-18 yrs) 08/09/2001 Hib (HbOC) 08/09/2001 IPV (Polio) 08/09/2001 Influenza (Flucelvax) 07/26/2021 Influenza [id number] 12/26/2009 Influenza IIV4 (Quadrivalent) 0.5mL (62362) 07/26,12/26/2009 Influenza LAIV (Nasal, 2-49 yrs) 10/17/2013 MMR 08/09/2001 PPSV23 (Pneumovax) 04/16/2021 Pfizer Monovalent 12+ Purple Top 08/01/2021,06/26 Tdap 10/13/2019,05/20/2018 Family History Medical History Relation Name Comments Psychiatry Father Depression Alcohol Abuse Mother Psychiatry Mother Depression, anx iety Relation Name Status Comments Father Alive Mother Alive Sister 1 Alive Sister 2 Alive Social History Tobacco Use Types Packs/Day Years Used Date Smoking Tobacco: Some Days Cigarettes Smokeless Tobacco: Never Comments:0-4/day Alcohol Use Standard Drinks/Week Comments No 0 (1 standard drink = 0.6 oz pur e alcohol) Comments No Sex and Gender Information Value Date Recorded Sex Assigned at Not on file Legal Sex Female 6:56 AM CDT Gender Identity Not on file Sexual Orientation Not on file Occupation Industry Job Start Date Job End Date [employer] Not on file Not on file Not on file Last Filed Vital Signs Vital Sign Reading Time Taken Comments Blood Pressure 103/75 01/19/2024 7:57 AM CDT Pulse 106 01/19/2024 11:46 AM CDT Temperature 36.1 C (97 F) 01/19/2024 7:57 AM CDT Respiratory Rate 18 01/19/2024 7:57 AM CDT Oxygen Saturation 98% 01/19/2024 7:57 AM CDT Inhaled Oxygen Concentration - - Weight 60.3 kg (133 lb) 01/18/2024 11:37 AM CDT Height 162.6 cm (5' 4) 01/18/2024 11:37 AM CDT Body Mass Index 22.83 01/18/2024 11:37 AM CDT Plan of Treatment Health Maintenance Due Date Last Done Comments HepB Vaccine (2) 09/06/2001 08/09/2001 Adult Preventive Visit 2015 HPV Vaccine (2 - 3-dose series) 05/14/2021 04/16/2021 Pneumococcal Vaccine (2 of 2 - PCV) 04/16/2022 04/16/2021 Cervical Cancer Screening 05/13/2022 05/13/2019 (Com pleted) COVID-19 Vaccine ( season) 2024 08/01/2021, 07/10/2021 Influenza Vaccine (Season Ended) 2025 07/26/2021, 08/04/2019, 10/17/2013, Additional history exists DTaP/Tdap/Td Vaccine (4 - Tdap) 10/13/2029 10/13/2019, 05/20/2018, 08/09/2001 Zoster/Shingles Vaccine (1 of 2) 2047 Hib Vaccine Completed 08/09/2001 HIV Screening (Preventive Services) Completed 01/12/2024, 01/29/2023 (Completed) Hep C Screening (Preventive Services) Completed 01/12/2024, 01/29/2023 (Completed) HepA Vaccine Aged Out No longer eligi ble based on patient's age to complete this topic MCV4 Vaccine Aged Out No longer eligi ble based on patient's age to complete this topic Meningococcal B Vaccine Aged Out No l onger eligible based on patient's age to complete this topic Procedures Procedure Name Priority Date/Time Associated Diagnosis Comments HIV 1/2 AG/AB 4TH GEN STAT Add-On 01/12/2024 10:15 PM CDT HEPATITIS PANEL ACUTE WITH REFLEX TO CONFIRMATION STAT Add-On 01/12/2024 10:15 PM CDT from Last 3 Months or Most Recently Relevant to Health Maintenance Results * Hepatitis Panel with Reflex to Confirmation (01/12/2024 10:15 PM CDT) Hepatitis A Antibody, IgM Negative (Non Reactive) Negative (Non Reactive) 01/14/2024 11:10 AM CDT [facility] Comment:IgM anti-HAV not det ected. Does not exclude the possibility of exposure to or infection with HAV. Levels of IgM anti-HAV may be below the cut-off in early infection. Hepatitis Bc Antibody,IgM Negative (Non Reactive) Negative (Non-Reacti ve) 01/14/2024 11:10 AM CDT [facility] Comment:IgM anti-HBc not det ected. Does not exclude the possibility of exposure to or infection with HBV. Hepatitis B Surface Antigen Negative (Non Reactive) Negative (Non Reactive) 01/14/2024 11:10 AM CDT [facility] Hepatitis C Antibody Negative (Non Reactive) Negative (Non Reactive) 01/14/2024 11:10 AM T [facility] Comment:Antibodies to HCV no t detected. Does not exclude the possiblity of exposure to HCV. Blood Venipuncture / Unknown 01/12/2024 10:15 PM CDT 01/12/2024 10:24 PM CDT us Alina Huffman PA-C LAB_1 Final Re sult [facility] [address] [address] * HIV 1/2 Ag/Ab 4th Generation (01/12/2024 10:15 PM CDT) HIV 1/2 Antigen/Antib amena (4th generation) Negative (Non Reactive) Negative (Non Reactive) 01/13/2024 7:55 AM CDT [facility] Comment:HIV-1 p24 Antigen an d HIV-1/HIV-2 Antibody not detected Blood Venipuncture / Unknown 01/12/2024 10:15 PM CDT 01/12/2024 10:24 PM CDT us Alina Huffman PA-C LAB_1 [place] [address], [facility] from Last 3 Months or Most Recently Relevant to Health Maintenance Insurance [facility] Advance Directives * Full Code (Latest Code Status on File) Date Activated Date Inactivated Comments 01/18/2024 12:07 PM 01/19/2024 4:03 PM * Full Code Date Activated Date Inactivated Comments 01/13/2024 12:55 AM 01/18/2024 12:06 PM * Full Code Date Activated Date Inactivated Comments 02/17/2015 9:00 PM 02/16/2015 7:00 PM * Full Code Date Activated Date Inactivated Comments 02/17/2015 9:00 PM 02/19/2015 8:55 AM Care Teams Water Valve Mechanic Relationship Specialty Start Date End Date Found, No Pcp, [address] [place] [address] PCP - General 06/28/14
--- OUTSIDE RECORDS SUMMARY | 2025-04-13 13:45 | XMS_ITS | Clinical Summary ---
Author Organization [facility] Address [address] [place] [id number] Care Team Providers Care Store Operations Associate Name Role Phone Pcp, No Primary Care Provider Unavailabl e Pcp, No Unavailable Unavailable Allergies Active Allergy Reactions Criticality Noted Date Comments Hymenoptera Allergenic Extract Edema 06/29/2014 Wasps Bupropion Hcl Hives High 09/26/2021 Serum sickness like reaction Venom-Wasp Anaphylaxis,Hives High 06/21/2020 Medications norgestrel-ethinyl estradiol, 0.3-30 mg-mcg, (LO-OVRAL) 0.3-30 mg-mcg tablet Take 1 tablet by mouth once daily. 1 Packet 0 06/29/20 14 Active diphenhydrAMINE (BENADRYL) 25 mg tablet Take 1-2 tablets by mouth at bedtime if needed for Sleep. 0 02/20/20 15 Active guaiFENesin (MUCINEX) 600 mg Extended-Release tablet Take 1 tablet by mouth 2 times daily if needed for Expectoration. 0 02/20/20 15 Active sertraline (ZOLOFT) 25 mg tabletIndications: Panic disorder without agoraphobia,Depres sive disorder, not elsewhere classified Take 1 tablet by mouth every morning. 30 tablet 1 02/20/20 15 Active ondansetron (ZOFRAN ODT) 4 mg disintegrating tabletIndications: Non-intractable vomiting with nausea, unspecified vomiting type Place 2 Tablets (8 mg) on the tongue every 8 hours if needed for Nausea/Vomiting. 20 Tablet 01/09/20 21 Active naloxone (NARCAN) 4 mg/actuation nasal sprayIndications:O piate overdose, accidental or unintentional, initial encounter (HC) Inhale 1 Inola into affected nostril(s) each time if needed for Patient Diff To Arouse or Resp Rate < 8 / min. Additional doses may be given every 2 to 3 minutes until emergency medical assistance arrives. 1 box 03/22/20 21 Active gabapentin (NEURONTIN) 300 mg capsule TAKE 1 CAPSULE(300 MG) BY MOUTH THREE TIMES DAILY 12/22/19 23 Active Suboxone 8-2 mg sublingual film 01/24/20 23 Active venlafaxine extended release (VENLAFAXINE XR, [employer],) 150 mg extended release tablet Take 150 mg by mouth. 01/16/20 23 Active busPIRone 7.5 mg tablet 01/29/20 23 Active hydrOXYzine HCL (ATARAX) 50 mg tablet 01/22/20 23 Active propranoloL (INDERAL) 10 mg tablet 01/22/20 23 Active levonorgestrel (MIRENA) 20 mcg/24 hours (8 yrs) 52 mg intrauterine device (IUD) Inject 1 Each intrauterine. Active ibuprofen (ADVIL; MOTRIN) 200 mg tablet 01/20/20 23 Active EPINEPHrine (EPIPEN) 0.3 mg/0.3 mL auto-injector Inject 0.3 mg intramuscular one time if needed. 09/24/20 21 Active polyethylene glycoL (MIRALAX) 17 gram/scoop powder 01/25/20 23 Active Graduated Compression StockingsIndicatio ns:Bilateral lower extremity edema For personal use. Length: calf Strength: 16-20 mmHg Circumference in cm: For calf: Ankle 26 cm, Calf 39 cm, Ankle to calf length 20 cm. 1 Packet 01/30/20 23 Active Active Problems Problem Noted Date Diagnosed [...] Date Smoking Tobacco: Every Day Cigarettes 0.5 15.5 Started: 2009 Smokeless Tobacco: Never Tobacco Cessation:Ready to Q uit: Not Asked; Counseling Given: Not Answered Alcohol Use Standard Drinks/Week Comments No 0 (1 standard drink = 0.6 oz pur e alcohol) Social Connections Answer Date Recorded Frequency of Communication with Friends and Fami ly Not on file 01/29/2023 Comments No Sex and Gender Information Value Date Recorded Sex Assigned at Not on file Legal Sex Female 8:01 AM SKEWER UP Gender Identity Not on file Sexual Orientation Not on file Occupation Industry Job Start Date Job End Date [employer] Not on file Not on file Not on file Obstetrics History Last Filed Vital Signs Vital Sign Reading Time Taken Comments Blood Pressure 122/67 01/31/2023 6:30 PM CDT Pulse 80 01/31/2023 6:30 PM CDT Temperature 36.3 C (97.3 F) 01/31/2023 2:23 PM CDT Respiratory Rate 16 01/31/2023 6:30 PM CDT Oxygen Saturation 98% 01/31/2023 6:30 PM CDT Inhaled Oxygen Concentration - - Weight 68 kg (150 lb) 01/31/2023 2:23 PM CDT Height 165.1 cm (5' 5) 01/31/2023 2:23 PM CDT Body Mass Index 24.96 01/31/2023 2:23 PM CDT Plan of Treatment Health Maintenance Due Date Last Done Comments Tdap 2008 Depression screening for age 12+ 2009 Hepatitis B series for 19+ ( 1 of 3 - 19+ 3-dose series) 2016 Tetanus booster 2017 Pap test for age 21-65 05/13/2022 05/13/2019 BMI (ht and wt on same day) for age 18+ 01/30/2024 01/29/2023 COVID-19 vaccine series (3 - 2023- season) 2024 08/01/2021, 07/10/2021 Influenza Vaccine (Season Ended) 2025 HIV for age 15-65 Completed 01/29/2023 Hepatitis C screening for ag e 18-79 Completed 01/29/2023 Pneumococcal series for age 6-49 Aged Out No longer eligible b ased on patient's age to complete this topic Procedures Procedure Name Priority Date/Time Associated Diagnosis Comments LC HIV-1/O/2, 4TH GENERATION Routine 01/29/2023 2:00 PM CDT Bilateral lower extremity edema LC HCV ANTIBODY RFX TO QUANT PCR Routine 01/29/2023 2:00 PM CDT Bilateral lower extremity edema WOOD ROOM SUPERVISOR THIN PREP PAP SCREEN IMAGED Routine 05/13/2019 12:00 PM CDT from Last 3 Months or Most Recently Relevant to Health Maintenance Results * LC HCV ANTIBODY RFX TO QUANT PCR (01/29/2023 2:00 PM CDT) HCV Ab Non Reactive Non Reactive 02/01/2023 10:[address] [facility] ([facility]) Blood BLOOD SPECIMEN / Unknown Venipuncture / Unknown 01/29/2023 2:00 PM CDT 01/29/2023 2:[address] [facility] ([facility]) - 02/01/2023 10:07 AM CDT Performed at: [address] [place] [id number] Tig Welder: Jasbir Canales MD, Phone: [phone] us [facility] Final Result [facility] ([facility]) [address] [place] [address] * LC HIV-1/O/2, 4TH GENERATION (01/29/2023 2:00 PM CDT) Pathologist [facility] HIV Scr 4th Gen Non Reactive Non Reactive 02/01/2023 11:[address] [facility]) Comment: HIV Negative HIV-1/HIV-2 antibodies and HIV-1 p24 antigen were NOT detected. There is no laboratory evidence of HIV infection. Blood BLOOD SPECIMEN / Unknown Venipuncture / Unknown 01/29/2023 2:00 PM CDT 01/29/2023 2:02 PM CDT [facility]ative [facility] - 02/01/2023 11:07 AM CDT Performed at: [address] [id number] Tig Welder: Jasbir Canales MD, Phone: [phone] [facility] Final Result [facility] [place] [address], * WOOD ROOM SUPERVISOR THIN PREP PAP SCREEN IMAGED (05/13/2019 12:00 PM CDT) Case Report Gynecologic Cytology Report Case: [id number] Authorizing Provider: Sophia Garcia PA-C Collected: 05/13/2019 1200 Ordering Location: [facility] Received: 05/16/2019 0732 First Screen: Feliz Richard Specimen: WOOD ROOM SUPERVISOR ThinPrep Vial Screening, Cervical/Vaginal 05/24/2019 12:44 PM CDT [facility] INTERPRETATION/ RESULT NEGATIVE FOR INTRAEPITHELIAL LESION OR MALIGNANCY (NIL) (none) 05/24/2019 12:44 PM CDT [facility] at 1244 CDT SPECIMEN ADEQUACY Satisfactory for evaluation No endocervical component seen in a patient 05/24/2019 12:44 PM CDT [facility] HPV REQUEST HPV if ASCUS 05/24/2019 12:44 PM CDT [facility] Date of LMP 03/12/2019 05/24/2019 12:44 PM CDT [facility] Last Pap Result First Pap/Unknown 12:44 PM CDT [facility] Menstrual Status 05/24/2019 12:44 PM CDT [facility] Automated Review Successful 05/24/2019 12:44 PM CDT [facility] Comment:Specimen processed s uccessfully by automated laboratory monitor device, ThinPrep Imaging System, [employer] Note The pap test is a screening technique, not a diagnostic procedure. It is used primarily to screen for squamous cancers and precursor lesions. Published studies have shown that it is subject to both false negative and false positive results. The pap test should not be used as the sole means to diagnose or exclude pre-malignant and malignant lesions. Cytology is screened and interpreted at [facility] - [address], [place] [address] and [facility] - [address]; [place] [address] and [facility] - [address]; [place] [address] and [facility] [address]; [place] [address] 05/24/2019 12:44 PM CDT [facility] Other (Cervical/Vagina l) 05/13/2019 12:00 PM CDT 05/16/2019 7:32 AM CDT january Radha [facility] PATH[facility]/CYTOLOGY Final R esult [facility] [address] [place] [address], [place] from Last 3 Months or Most Recently Relevant to Health Maintenance Insurance [facility] PPO on file * Guarantor: LEE GARCIA Account Type Relation to Patient Date of Phone Billing Address Personal/Family [phone] [place] [phone] [facility] [phone] [facility] [place] [address] COMMERCIAL Advance Directives * Full Code (Latest Code Status on File) Date Activated Date Inactivated Comments 02/17/2015 8:55 PM 02/19/2015 4:32 PM Care Teams Store Operations Associate Relationship Specialty Start Date End Date Pcp, No . PCP - General 06/28/14 Pcp, No . 06/28/14
[2025-04-13 13:50] VITALS: BP 116/81; PULSE 95; RESP 20; TEMP 37.1; O2SAT 98; BMI 27.5
--- NOTE | 2025-04-13 13:56 | CRLHL7_ITS ---
For Patients: As a result of the Century Cures Act, medical imaging exams and procedure reports are released immediately into your electronic medical record. You may view this report before your referring provider. If you have questions, please contact your health care provider. Indication: Cough Technique: Chest 2 views Comparison: Chest x-ray 12/08/2022 Findings/Impression: Cardiovascular and mediastinum: Heart size and vasculature are normal in caliber and appearance. Mediastinum is within normal limits. Lungs and pleural spaces: Lungs are clear. No sign of infiltrate or mass. No sign of pleural effusion. No pneumothorax. Bones and soft tissues: No significant findings. Dictated by Brett Woods MD @ 04/13/2025 3:14:19 PM (Electronically Signed)
--- NOTE | 2025-04-13 13:59 | ED.GENADULT ---
HPI - General Adult General Chief complaint: Cough Stated complaint: cough, chest pain, fever, congestion, delerious Time Seen by Provider: 04/13/25 13:47 Source: patient Mode of arrival: ambulatory Limitations: no limitations History of Present Illness HPI narrative: 29-year-old female coming in today complaining of a cough for 6 days. Cough is nonproductive. She had a fever for 2 days, no fever today. Normal appetite. She feels more fatigued than usual. Has been sleeping more than usual. She denies any rashes. She denies headache. She is not short of breath. No abdominal pain. No urinary symptoms. She does feel congested. Related Data Home Medications ?Medication ?Instructions ?Recorded ?Confirmed gabapentin 300 mg capsule 300 mg PO TID 09/08/22 12/08/22 venlafaxine 150 mg 150 mg PO DAILY 09/08/22 12/07/22 capsule,extended release 24 hr vitamin A 2,500 unit-vit C 100 1 cap PO DAILY 12/08/22 12/08/22 mg-biotin 2,500 arb-gyds-xklhum capsule (Lota-Zgak-Sgqn (vit A,Y-kqxdiv-Bq-Cu)) amitriptyline 25 mg tablet 25 mg PO QPM 04/13/25 04/13/25 cariprazine 1.5 mg capsule 1.5 mg PO DAILY 04/13/25 04/13/25 (Vraylar) clonazepam 0.5 mg tablet 0.5 mg PO DAILY PRN panic attack 04/13/25 04/13/25 dextroamphetamine-amphetamine 20 1 tab PO DAILY 04/13/25 04/13/25 mg tablet gabapentin 100 mg capsule 100 mg PO 3XD 04/13/25 04/13/25 Previous Rx's ?Medication ?Instructions ?Recorded amoxicillin 875 mg-potassium 1 tab PO BID #6 tabs 12/10/22 clavulanate 125 mg tablet propranolol 20 mg tablet 10 mg (1/2 x 20 mg) PO BID 30 days 12/10/22 #15 tabs omeprazole 40 mg capsule,delayed 40 mg PO DAILY #30 caps 04/13/23 release Allergies Allergy/AdvReac Type Severity Reaction Status Date / Time bupropion (From Wellbutrin) Allergy Intermediate Hives Verified 04/13/25 13:48 morphine Allergy Intermediate Abdominal Verified 04/13/25 13:48 Pain Review of Systems Status of ROS: Reports: 10 or more systems reviewed and unremarkable except as noted in History and below [facility] Medical History Postoperative pain ?G89.18 - Other acute postprocedural pain (ICD-10) History of panic disorder ?Z86.59 - Personal history of other mental and behavioral disorders (ICD-10) Recurrent subluxation of patella, right knee ?M22.11 - Recurrent subluxation of patella, right knee (ICD-10) (normal spontaneous vaginal delivery) ?O80 - Encounter for full-term uncomplicated delivery (ICD-10) Migraine headache with aura ?G43.109 - Migraine with aura, not intractable, without status migrainosus (ICD-10) Opioid abuse ?F11.10 - Opioid abuse, uncomplicated (ICD-10) Methamphetamine dependence, episodic ?F15.20 - Other stimulant dependence, uncomplicated (ICD-10) History of attempted suicide ?Z91.51 - Personal history of suicidal behavior (ICD-10) Major depressive disorder ?F32.9 - Major depressive disorder, single episode, unspecified (ICD-10) Anxiety disorder ?F41.9 - Anxiety disorder, unspecified (ICD-10) Surgical History History of tonsillectomy and adenoidectomy ?Z90.89 - Acquired absence of other organs (ICD-10) History of tonsillectomy ?Z90.89 - Acquired absence of other organs (ICD-10) Status post tonsillectomy and adenoidectomy ?Z90.89 - Acquired absence of other organs (ICD-10) History of wisdom tooth extraction ?K08.409 - Partial loss of teeth, unspecified cause, unspecified class (ICD-10) Social History Highest level of school completed/degree received: high school graduate Smoking Status: Current every day smoker What tobacco products do you use: cigarettes Do you use any of these nicotine containing products: Vaping Products How often do you have a drink containing alcohol: never AUDIT-C Alcohol total score: 0 Non-prescribed substance use: denies use and other Non-prescribed substance use details: Update 04/10/23: Pt not currently using Update 12/07/22: pt relapsed, taking Perc 30s Former IV drug user, currently taking suboxone service: No Exam Narrative: Exam Narrative: Well-nourished well-developed patient in no acute distress. Alert and oriented. Answers questions appropriately. Mood and affect are appropriate. Thoughts are goal oriented and rational. No tangential or magical thinking noted. Patient speaks in full sentences without needing to catch her breath. HEENT: Normocephalic atraumatic. Pupils are equally round reactive to light. Extraocular muscles are intact. Conjunctivae are moist without any icterus noted. Moist mucous membranes. Posterior pharynx is normal. Neck is soft without any lymphadenopathy or thyromegaly. No masses are appreciated. Cardiovascular: Heart is regular rate and rhythm S1 and S2 are present without any murmurs. Lungs: Clear to auscultation bilaterally no wheezes rhonchi or rales are appreciated. Patient takes deep breaths without any discomfort. Skin: Well perfused without any obvious rashes. Const: Vital Signs, click to edit/add: Vital Signs - 24 hr 04/13/25 13:50 Temperature 98.7 F Pulse Rate [Pulse Oximeter] 95 Respiratory Rate 20 Blood Pressure [Ri ght Upper Arm] 116/81 Pulse Oximetry 98 Oxygen Delivery Me thod Room Air Course Course ED Course: Labs are unremarkable. Chest x-ray, read by me, does not show any evidence of pathology. Vital Signs Vital signs: Initial Vital Signs Temperature 98.7 F 04/13/25 13:50 Temperature Source Temporal Artery Scan 04/13/25 13:50 Pulse Rate 95 04/13/25 13:50 Respiratory Rate 20 04/13/25 13:50 Blood Pressure 116/81 04/13/25 13:50 Blood Pressure Mean 92 04/13/25 13:50 Pulse Oximetry 98 04/13/25 13:50 Oxygen Delivery Method Room Air 04/13/25 13:50 Vital Signs Temperature 98.7 F 04/13/25 13:50 Pulse Rate 95 04/13/25 13:50 Respiratory Rate 20 04/13/25 13:50 Blood Pressure 116/81 04/13/25 13:50 Pulse Oximetry 98 04/13/25 13:50 Oxygen Delivery Method Room Air 04/13/25 13:50 Temperature 98.7 F 04/13/25 13:50 Pulse Rate 95 04/13/25 13:50 Respiratory Rate 20 04/13/25 13:50 Blood Pressure 116/81 04/13/25 13:50 Pulse Oximetry 98 04/13/25 13:50 Oxygen Delivery Method Room Air 04/13/25 13:50 Medical Decision Making MDM Narrative Medical decision making narrative: 29-year-old female with a URI. Discussed symptomatic treatment and reasons for follow-up. Lab Data Lab results reviewed: Yes I reviewed the patient's lab results Labs: Lab Results 04/13/25 04/13/25 Range/Units 13:56 14:15 WBC 7.08 (4.50-11.00) K/uL RBC 4.99 (4.00-5.20) m/uL Hgb 15.6 (12.0-16.0) gm/dL Hct 44.7 (33.0-51.0) % MCV 90 (80-100) fL MCH 31 (26-34) pg MCHC 35 (32-36) gm/dL RDW Coeff of Malu 11.7 (11.5-15.5) % Plt Count 228 (140-440) K/uL Neut % (Auto) 59.8 (42.0-72.0) % Lymph % (Auto) 30.9 (20-44) % [place] % (Auto) 5.9 (0.0-11.0) % Eos % (Auto) 3.0 (0.0-7.0) % Baso % (Auto) 0.3 (0.0-3.0) % Neut # (Auto) 4.23 (1.7-7.0) K/uL Lymph # (Auto) 2.19 (0.90-2.90) K/uL [place] # (Auto) 0.40 (0.00-0.90) K/UL Eos # (Auto) 0.21 (0.00-0.50) K/uL Baso # (Auto) 0.02 (0.00-0.30) K/uL Abs Immat Gran (auto) 0.01 (0.00-0.30) K/uL Imm/Tot Granulo (auto) 0.1 % SARS-CoV-2 (PCR) Negative SARS-CoV-2 (Negative) Monoscreen Negative (Negative) Influenza Type A (PCR) Negative PCR FLU A (Negative) Influenza Type B (PCR) Negative PCR FLU B (Negative) RSV (PCR) Negative PCR RSV (Negative) Imaging Data Chest x-ray: Attestation: I have reviewed the pertinent imaging results. Radiologist's impression: Chest 2 views Comparison: Chest x-ray 12/08/2022 Findings/Impression: Cardiovascular and mediastinum: Heart size and vasculature are normal in caliber and appearance. Mediastinum is within normal limits. Lungs and pleural spaces: Lungs are clear. No sign of infiltrate or mass. No sign of pleural effusion. No pneumothorax. Bones and soft tissues: No significant findings. Discharge Plan Discharge Clinical Impression: URI (upper respiratory infection) Patient Disposition: Home, Self-Care Condition: Stable Instructions: Upper Respiratory Infection (ED) Prescriptions: No Action gabapentin 300 mg capsule 300 mg PO TID venlafaxine 150 mg capsule,extended release 24hr 150 mg PO DAILY Wada-Earl-Demk(vit A,C-biotin) 2,500 unit-100 mg-2,500 mcg capsule 1 cap PO DAILY propranolol 20 mg Tablet 10 mg PO BID 30 Days Qty: 15 0RF amoxicillin-pot clavulanate 875-125 mg tablet 1 tab PO BID Qty: 6 0RF omeprazole 40 mg capsule,delayed release(DR/EC) 40 mg PO DAILY Qty: 30 0RF clonazepam 0.5 mg tablet 0.5 mg PO DAILY PRN (Reason: panic attack) amitriptyline 25 mg tablet 25 mg PO QPM dextroamphetamine-amphetamine 20 mg tablet 1 tab PO DAILY gabapentin 100 mg capsule 100 mg PO 3XD Vraylar 1.5 mg capsule 1.5 mg PO DAILY Follow Up/Referrals: Provider,Not a Local [Primary Care Provider, Family Practice] Stand Alone Forms: [employer]th Info Instructions
[2025-04-13 14:25] LABS: Basophils Absolute Auto 0.02 K/uL (0.00-0.30); Basophils Percent Auto 0.3 % (0.0-3.0); Eosinophils Absolute Auto 0.21 K/uL (0.00-0.50); Hematocrit 44.7 % (33.0-51.0); Hemoglobin* 15.6 gm/dL (12.0-16.0); Immature Granulocytes Abs Auto 0.01 K/uL (0.00-0.30); Immature Granulocytes Pct Auto 0.1 %; Lymphocytes Absolute Auto 2.19 K/uL (0.90-2.90); Lymphocytes Percent Auto 30.9 % (20-44); Mean Corpuscular HGB Conc 35 gm/dL (32-36); Mean Corpuscular Hemoglobin 31 pg (26-34); Mean Corpuscular Volume 90 fL (80-100); Monocytes Percent Auto 5.9 % (0.0-11.0); Neutrophils Absolute Auto 4.23 K/uL (1.7-7.0); Neutrophils Percent Auto 59.8 % (42.0-72.0); Platelet Count* 228 K/uL (140-440); RDW Coefficient of Variation % 11.7 % (11.5-15.5); Red Blood Count 4.99 m/uL (4.00-5.20); White Blood Count* 7.08 K/uL (4.50-11.00)
[2025-04-13 14:26] LABS: Mono Screen* Negative (Negative)
[2025-04-13 14:29] LABS: Slide Review Reflex No
[2025-04-13 14:48] LABS: PCR FLU A Negative PCR FLU A (Negative); PCR FLU B Negative PCR FLU B (Negative); PCR RSV Negative PCR RSV (Negative); SARS PCR* Negative SARS-CoV-2 (Negative)
== END 2025-04-13 15:32 | disposition home or self-care (01) ==
PROVIDERS: Emergency Provider Family Medicine
DX: J06.9 Acute upper respiratory infection, unspecified (principal)
CPT/HCPCS: 36415; 71046; 85025; 86308; 87631; 99283; 99284

== ENCOUNTER 2025-07-17 09:28 | Outpatient (CLI) | payer SELFPAY | END 2025-07-17 09:29 | disposition home or self-care (01) | PROVIDERS: PCP Family Medicine; Visit Provider Family Medicine | DX: Z13.6 Encounter for screening for cardiovascular disorders (principal); R53.83 Other fatigue; Z11.3 Encounter for screening for infections with a predominantly sexual mode of transmission | CPT/HCPCS: 80053; 80061; 84443; 86703 ==

== ENCOUNTER 2025-09-06 13:22 | Outpatient (CLI) | payer OTHER, SELFPAY | END 2025-09-06 13:23 | disposition home or self-care (01) | PROVIDERS: PCP Family Medicine | DX: R10.13 Epigastric pain (principal) | CPT/HCPCS: 80076; 83690 ==

== ENCOUNTER 2025-09-29 21:20 | Emergency (ER) | payer OTHER, SELFPAY ==
--- OUTSIDE RECORDS SUMMARY | 2025-09-29 21:23 | XMS_ITS | Clinical Summary ---
Author Organization [facility] Address [address] [place] [address] Care Team Providers Care Peoplesoft Name Role Phone Found, No Pcp MD [...] for each transition of care or referral. [facility] Active Allergy Reactions Criticality Noted Date Comments Bupropion Hives High 09/26/2021 Serum sickness like reaction Hymenoptera Venom Preparations Edema,generalized 06/29/2014 HUT Comment: Wasps Medications levonorgestrel (MIRENA) 20 MCG/DAY IUD 1 Each by Intrauterine route once. Active naloxone (NARCAN) 4 MG/0.1ML nasal spray Place 1 Speculator (4 mg) into one nostril as needed [...] IPV (Polio) 08/09/2001 Influenza (Flucelvax) 07/26/2021 Influenza [id number] 12/26/2009 Influenza IIV4 (Quadrivalent) 0.5mL (14223) 07/26,12/26/2009 Influenza LAIV (Nasal, 2-49 yrs) 10/17/2013 [...] Screening 05/13/2022 05/13/2019 (Com pleted) COVID-19 Vaccine (3 - season) 2025 08/01/2021, 07/10/2021 Influenza Vaccine (#1) 2025 , 08/04/2019, 10/17/2013, Additional history exists DTaP/Tdap/Td Vaccine [...] Negative (Non Reactive) 01/14/2024 11:10 AM CDT [facility] Comment:IgM anti-HAV not det ected. Does not exclude the possibility of exposure to or infection with HAV. Levels of IgM anti-HAV may be below the cut-off in early infection. Hepatitis Bc Antibody,IgM Negative (Non Reactive) Negative (Non-Reacti ve) 01/14/2024 11:10 AM CDT [facility] Comment:IgM anti-HBc not det ected. Does not exclude the possibility of exposure to or infection with HBV. Hepatitis B Surface Antigen Negative (Non Reactive) Negative (Non Reactive) 01/14/2024 11:10 AM CDT [facility] Hepatitis C Antibody Negative (Non Reactive) Negative (Non Reactive) 01/14/2024 11:10 AM CDT [facility] Comment:Antibodies to HCV no t detected. Does not exclude the possiblity of exposure to HCV. Blood Venipuncture / Unknown 01/12/2024 10:15 PM CDT 01/12/2024 10:24 PM CDT us Alina Huffman PA-C LAB_1 Final Re sult [facility] [address] [address] * HIV 1/2 Ag/Ab 4th Generation (01/12/2024 10:15 PM CDT) HIV 1/2 Antigen/Antib amena (4th generation) Negative (Non Reactive) Negative (Non Reactive) 01/13/2024 7:55 AM CDT [facility] Comment:HIV-1 p24 Antigen an d HIV-1/HIV-2 Antibody not detected Blood Venipuncture / Unknown 01/12/2024 10:15 PM CDT 01/12/2024 10:24 PM CDT us Alina Huffman PA-C LAB_1 Final Re sult [id number] [place] [address] from Last 3 Months or Most Recently Relevant to Health Maintenance Insurance [facility] Advance Directives * Full Code (Latest [...] 9:00 PM 02/19/2015 8:55 AM Care Teams Peoplesoft Relationship Specialty Start Date End Date Found, No Pcp, [address] [place] [address] PCP - General 06/28/14
--- OUTSIDE RECORDS SUMMARY | 2025-09-29 21:23 | XMS_ITS | Clinical Summary ---
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 Gender Identity Not on file Sexual Orientation [...] Health Maintenance Due Date Last Done Comments Tetanus booster 2008 Depression screening for age 12+ 2009 Hepatitis B series for 19+ ( 1 of 3 - 19+ 3-dose series) 2016 Pap test for age 21-65 05/13/2022 05/13/2019 BMI (ht and wt on same day) for age 18+ 01/30/2024 01/29/2023 HPV series for age 9-45 (1 - 3-dose SCDM series) 2024 COVID-19 vaccine series ( - 2024- season) 2025 08/01/2021, 07/10/2021 Influenza Vaccine (#1) 2025 RSV vaccine for adults or (1 - 1-dose 75+ series) 2072 HIV for age 15-65 Completed 01/29/2023 Hepatitis [...] 2:00 PM CDT Bilateral lower extremity edema TELEPHONE CLAIMS REPRESENTATIVE THIN PREP PAP SCREEN IMAGED Routine 05/13/2019 12:00 PM CDT from Last 3 Months or Most Recently Relevant to Health Maintenance Results * LC HCV ANTIBODY RFX TO QUANT PCR (01/29/2023 2:00 PM CDT) HCV Ab Non Reactive Non Reactive 02/01/2023 10:07 AM CDT [facility] ([facility]) Blood BLOOD SPECIMEN / Unknown Venipuncture / Unknown 01/29/2023 2:00 PM CDT 01/29/2023 2:02 PM CDT Narrative [facility] ([facility]) - 02/01/2023 10:07 AM CDT Performed at: [address] [place] [id number] Personal Property Appraiser: Jasbir Canales MD, Phone: [phone] [facility] Final Result [facility] ([facility]) [address] [place] [id number], * LC HIV-1/O/2, 4TH GENERATION (01/29/2023 2:00 PM CDT) HIV Scr 4th Gen Non Reactive Non Reactive 02/01/2023 11:07 AM CDT [facility] ([facility]) Comment: HIV Negative HIV-1/HIV-2 antibodies and HIV-1 p24 antigen were NOT detected. There is no laboratory evidence of HIV infection. Blood BLOOD SPECIMEN / Unknown Venipuncture / Unknown 01/29/2023 2:00 PM CDT 01/29/2023 2:02 PM CDT Narrative [facility] ([facility]) - 02/01/2023 11:07 AM CDT Performed at: [address] [place] [phone] Personal Property Appraiser: Jasbir Canales MD, Phone: [phone] [facility] Final Result [facility] ([facility]) [facility] [place] [address], * TELEPHONE CLAIMS REPRESENTATIVE THIN PREP PAP SCREEN IMAGED (05/13/2019 12:00 PM CDT) Case Report Gynecologic Cytology Report Case: [id number] Authorizing Provider: Sophia Garcia PA-C Collected: 05/13/2019 1200 Ordering Location: [facility] Received: 05/16/2019 0732 First Screen: Feliz Richard Specimen: TELEPHONE CLAIMS REPRESENTATIVE ThinPrep Vial Screening, Cervical/Vaginal 05/24/2019 12:44 PM CDT [facility] INTERPRETATION/ RESULT NEGATIVE FOR INTRAEPITHELIAL LESION OR MALIGNANCY (NIL) (none) 05/24/2019 12:44 PM CDT [facility] at 1244 CDT SPECIMEN ADEQUACY Satisfactory for evaluation No endocervical component seen in a patient 05/24/2019 12:44 PM CDT [facility] HPV REQUEST HPV if ASCUS 05/24/2019 12:44 PM CDT [facility] Date of LMP 03/12/2019 05/24/2019 12:44 PM CDT [facility] Last Pap Result First Pap/Unknown 12:44 PM CDT [facility] Menstrual Status 05/24/2019 12:44 PM CDT [facility] Automated Review Successful 05/24/2019 12:44 PM CDT [facility] Comment:Specimen processed s uccessfully by automated plater helper device, ThinPrep Imaging System, [employer] Note The pap test is a [...] lesions. Cytology is screened and interpreted at [facility] - [address], [place] [address] and [facility] - [address]; [place] [address] and [facility] - [address]; [place] [address] and [facility] [address]; [place] [address] 05/24/2019 12:44 PM CDT [facility] Other (Cervical/Vagina l) 05/13/2019 12:00 PM CDT 05/16/2019 7:32 AM CDT january Radha [facility] PATHOLOGY/CYTOLOGY Final R esult [facility] [address] [place] [address], [place] from Last 3 Months or Most Recently Relevant to Health Maintenance Insurance [facility] ONLY [place]AMALJIT CANDELARIA [id number] [id number] KAMALJIT MEJIA [id number] COMMERCIAL Member Subscriber Plan / Payer (Ef fective 2000-Present) Name:Elisabeth Garcia Member ID:[id number] Relation to Subscriber:Child Name:LEE GARCIA Subscriber ID:[id number] Date of :1958 (Home) Address: [address] [place] [address] Payer ID:Not on file Type:Not on file Address: [address] [place] [address] Advance Directives * Full Code (Latest Code Status on File) Date Activated Date Inactivated Comments 02/17/2015 8:55 PM 02/19/2015 4:32 PM Care Teams Oil Dipper Relationship Specialty Start Date End Date Pcp, No . PCP - General 06/28/14 Pcp, No . 06/28/14
[2025-09-29 21:26] VITALS: RESP 18; O2SAT 99
[2025-09-29 21:27] VITALS: BP 126/79; PULSE 107; RESP 16; TEMP 36.7; O2SAT 98; BMI 27.5
--- NOTE | 2025-09-29 22:07 | ED.GENADULT ---
HPI - General Adult General Chief complaint: Jaw Injury/Pain Stated complaint: Abscess in L side jaw Time Seen by Provider: 09/29/25 21:46 Source: patient Mode of arrival: ambulatory Limitations: no limitations History of Present Illness HPI narrative: 30-year-old female presents to the emergency department for evaluation of pain in the right lower jaw area. Symptoms have been present intermittently over the past couple of months, actually improved 10 days ago and then returned yesterday. Pain increased tonight and is now throbbing. She gets a singing pain that goes back towards the right ear. No drainage noted. Has a broken 1st molar on the right lower jaw, ongoing. Does not have dental insurance, has not attempted to make a dental appointment. Initially, symptoms would improve with some massage, and now not helping. Try taking Tylenol earlier today and then ibuprofen 5 hours ago with no significant relief of symptoms. No fever, no trauma or injury. No difficulty swallowing, no voice changes, no respiratory difficulty. Past medical history notable for ADHD, anxiety, bipolar disorder. Care team also lets me know that patient has prior history of narcotic abuse. Patient specifically says she does not want narcotics to me. Prior tobacco use noted. ROS is notable for the HEENT symptoms only, otherwise denies times 12 systems today. Related Data Home Medications ?Medication ?Instructions ?Recorded ?Confirmed amitriptyline 25 mg tablet 25 mg PO QPM 04/13/25 09/06/25 clonazepam 0.5 mg tablet 0.5 mg PO DAILY PRN panic attack 04/13/25 09/06/25 dextroamphetamine-amphetamine 20 1 tab PO DAILY 04/13/25 09/06/25 mg tablet cariprazine 1.5 mg capsule 3 mg PO DAILY 07/17/25 09/06/25 (Vraylar) dextroamphetamine-amphetamine ER 1 cap PO QAM 07/17/25 09/06/25 30 mg 24hr capsule,extend release Previous Rx's ?Medication ?Instructions ?Recorded ondansetron 4 mg disintegrating 4 mg PO Q8H PRN nausea and 09/06/25 tablet vomiting #10 tabs amoxicillin 875 mg tablet 875 mg PO BID #14 tabs 09/29/25 ketorolac 10 mg tablet 10 mg PO Q6H PRN pain 5 days #20 09/29/25 tabs Allergies Allergy/AdvReac Type Severity Reaction Status Date / Time bupropion (From Wellbutrin) Allergy Intermediate Hives Verified 09/06/25 13:04 morphine Allergy Intermediate Abdominal Verified 09/06/25 13:04 Pain [facility] Medical History Drug overdose ?T50.901A - Poisoning by unspecified drugs, medicaments and biological substances, accidental (unintentional), initial encounter (ICD-10) Methamphetamine dependence, episodic ?F15.20 - Other stimulant dependence, uncomplicated (ICD-10) Opioid abuse ?F11.10 - Opioid abuse, uncomplicated (ICD-10) Attempted suicide ?T14.91XA - Suicide attempt, initial encounter (ICD-10) Menorrhagia ?N92.0 - Excessive and frequent menstruation with regular cycle (ICD-10) Suicidal ideation ?R45.851 - Suicidal ideations (ICD-10) Aspiration pneumonia (2022) ?J69.0 - Pneumonitis due to inhalation of food and vomit (ICD-10) (normal spontaneous vaginal delivery) ?O80 - Encounter for full-term uncomplicated delivery (ICD-10) Surgical History History of vaginal delivery (12/25/19) History of tonsillectomy and adenoidectomy (10/27/14) ?Z90.89 - Acquired absence of other organs (ICD-10) History of wisdom tooth extraction ?K08.409 - Partial loss of teeth, unspecified cause, unspecified class (ICD-10) Family History Other Alcohol dependence Stroke Social History What is your current living situation?: I presently have a place to live Problems where you live: declined to answer In the past 12 months, utilities in danger of being shut off: no In past 12 months, lack of transportation kept you from medical appts, meetings, work, or getting things needed for daily living: no In the past 12 mos, have been you worried that your food would run out before you had money to buy more?: never true In the past 12 mos, the food you bought just didn't last and you didn't have money to buy more?: never true Highest level of school completed/degree received: high school graduate Smoking Status: Current every day smoker What tobacco products do you use: cigarettes Do you use any of these nicotine containing products: Vaping Products How often do you have a drink containing alcohol: never AUDIT-C Alcohol total score: 0 Non-prescribed substance use: denies use and other Non-prescribed substance use details: Update 04/10/23: Pt not currently using Update 12/07/22: pt relapsed, taking Perc 30s Former IV drug user, currently taking suboxone How often does anyone, including family, friends and others, physically hurt you: never How often does anyone, including family, friends and others, insult or talk down to you: never How often does anyone, including family, friends and others, threaten you with harm: never How often does anyone, including family, friends and others, scream or curse at you: never service: No Exam Const: Vital Signs, click to edit/add: Vital Signs - 24 hr 09/29/25 21:26 09/29/25 21:27 Temperature 98.1 F Pulse Rate [Pulse Oximeter] 107 H Respiratory Rate 16 Respiratory Rate [ R lower jaw] 18 Blood Pressure [Ri ght Upper Arm] 126/79 Pulse Oximetry 98 Oxygen Delivery Me thod Room Air Documenting provider has reviewed patient's vital signs: yes Other: Anxious, pacing, mild distress but redirectable. No signs of intoxication. Appears well nourished, well hydrated. HENMT: Common normals: normocephalic and moist oral mucous membranes Head and scalp: normocephalic Other: No facial swelling. Lips acyanotic. Posterior pharynx normal. Broken tooth in the right lower 1st molar area. Minimal swelling of the right lower jaw line, no signs of abscess, fluctuant area or foreign body. The cheek is normal. Tongue is normal. Upper jaw and opposite left side all appear grossly normal. Eye: General eye: normal appearance of both eyes Neck & C-Spine: Common normals: full ROM General: normal visual inspection Other: Mild tenderness at right submandibular area, no palpable enlargement. Remainder of anterior cervical and left sided lymph nodes are all normal. Resp: Common normals: normal respiratory effort, no use of accessory muscles and clear to auscultation bilaterally Effort & inspection: able to speak in complete sentences Auscultation: clear to auscultation bilaterally Cardio: Common normals: regular rate, regular rhythm, S1 normal heart sound, S2 normal heart sound and no murmurs Rate: regular rate Rhythm: regular rhythm Heart sounds: S1 normal and S2 normal Psych: Common normals: speech normal Activity/motor behavior: appropriate eye contact Speech: normal speech Insight: insight good Judgement: judgment good Skin: Common normals: no rashes or lesions noted General skin exam: no rashes or lesions noted Course Course ED Course: 30-year-old female with broken tooth and signs of worsening pain worrisome for dental infection. Counseled patient that as a for ED and D, I cannot give definitive treatment for the broken to but I can offer antibiotics reduce the chance of infection. I am not noticing any signs of encephalitis, soft tissue airway swelling or other emergent condition. I recommend amoxicillin 1 pill 2 times a day for the next week, 1st dose will be given here in the ED, remainder sent to her pharmacy. For pain, given Toradol here in the ED, remainder of prescription sent to pharmacy for for up to 5 days. Counseled on Tylenol. Will also give Flexeril from [employer] meds, she can take a dose when she gets home tonight to help take the edge off in use 1 pill at bedtime as needed for very bothersome symptoms not relieved by the Tylenol and Toradol. Alarm symptoms reviewed that would warrant ED re-evaluation including difficulty swallowing, neck swelling, high fevers, neurological changes, etc.. She will need to make her own dental appointment for follow-up. Patient verbalizes understanding and agreement of plan. Vital Signs Vital signs: Initial Vital Signs Respiratory Rate 18 09/29/25 21:26 Vital Signs Respiratory Rate 18 09/29/25 21: Temperature 98.1 F 09/29/25 21: Pulse Rate 107 H 09/29/25 21: Respiratory Rate 16 09/29/25 21: Blood Pressure 126/79 09/29/25 21: Pulse Oximetry 98 09/29/25 21:27 Oxygen Delivery Method Room Air 09/29/25 21:27 Discharge Plan Discharge Clinical Impression: Dental infection Patient Disposition: Home w/ Parent or Adult Condition: Stable Instructions: Dental Abscess (ED) Additional Instructions: I agree with you that infection is a concern with this broken tooth and your jaw pain. I am not seeing any signs that the infection is spreading down into year airway or any other dangerous areas like the brain or neck. I would like to start you on antibiotics. You were given your 1st dose of amoxicillin here in the emergency room. Please bead picker the additional supply from your pharmacy. For pain, you were given a dose of Toradol and a prescription for this medication also. Take 1 pill every 6 hours for pain. You may use Tylenol on top of this 1000 mg every 6 hours. Apply ice compresses as needed for 15 minutes at a time every 1-2 hours for pain. I recommend saltwater gargles 3 times per day to help with inflammation also. I gave you a supply of Flexeril, a muscle relaxant from the vending machine in the [employer] to get you through the night. Take 1 pill at night as needed for severe pain and to help with sleep. This is not addictive and not a narcotic but I find it does help boost the pain relieving properties of the Toradol nicely. It is really important that you make an appointment with a dentist as soon as possible, as the care I have given today will help reduce her chance of infection but will not treat the underlying problem. Please return to the emergency room if you have difficulty swallowing, severe swelling of the neck, high fever or other neurological changes. Activity Level: Activity as Tolerated Discharge Diet: Regular Prescriptions: New amoxicillin 875 mg tablet 875 mg PO BID Qty: 14 0RF ketorolac 10 mg tablet 10 mg PO Q6H PRN (Reason: pain) 5 Days Qty: 20 0RF No Action dextroamphetamine-amphetamine 30 mg capsule,extended release 24hr 1 cap PO QAM ondansetron 4 mg tablet,disintegrating 4 mg PO Q8H PRN (Reason: nausea and vomiting) Qty: 10 0RF clonazepam 0.5 mg tablet 0.5 mg PO DAILY PRN (Reason: panic attack) amitriptyline 25 mg tablet 25 mg PO QPM dextroamphetamine-amphetamine 20 mg tablet 1 tab PO DAILY Vraylar 1.5 mg capsule 3 mg PO DAILY Follow Up/Referrals: Chirag Mckenna MD [Primary Care Provider, Family Practice] Stand Alone Forms: [employer] Info Instructions
[2025-09-29] MEDS: AMOXICILLIN 250 MG CAPSULE 1000 MG PO (22:15)
[2025-09-29 22:18] VITALS: TEMP 36.7
[2025-09-29] MEDS: KETOROLAC 10 MG TABLET PO (22:18)
[2025-09-29 22:19] VITALS: BP 121/74; PULSE 99; RESP 16; TEMP 36.7; O2SAT 98
[2025-09-29 22:20] VITALS: BP 121/74; PULSE 99; RESP 16; TEMP 36.7
== END 2025-09-29 22:10 | disposition home or self-care (01) ==
LOC: ED 22:09
PROVIDERS: Emergency Provider Family Medicine; PCP Family Medicine
DX: K08.89 Other specified disorders of teeth and supporting structures (principal)
CPT/HCPCS: 99283; A9270